=== PATIENT | female | born 1960 | race Caucasian/White ===

== ENCOUNTER 2017-08-04 20:44 | Emergency (ER) | payer BC, SELFPAY ==
[2017-08-04 20:46] VITALS: BP 114/70; PULSE 85; RESP 16; TEMP 37.6; O2SAT 98; BMI 25.9
--- NOTE | 2017-08-04 22:02 | US_ITS ---
STUDY: ABDOMINAL ULTRASOUND - RIGHT UPPER QUADRANT REASON FOR VISIT: Female, 57 years old. Body aches, nausea and fever. TECHNIQUE: Ultrasound evaluation of the right upper quadrant was performed with real-time and static parish-scale imaging. TECHNICAL QUALITY: Adequate. COMPARISON: None. FINDINGS: Liver: The liver measures 15 cm. There is normal echogenicity of the liver. The bile ducts are within normal limits. There is hepatic color flow. The direction of portal flow is hepatopetal. There is no demonstrated mass lesion. Gallbladder: Normal distended gallbladder. The gallbladder wall measures 3 mm. There is a negative sonographic Ortiz's sign. There is no pericholecystic fluid. There is a solitary echogenic gallstone within the gallbladder measuring about 8 mm. Common Bile Duct (C.B.D.): The common bile duct measures 3 mm. Pancreas: The pancreas as visualized on this examination appears unremarkable. There is normal echogenicity of the pancreas. There is no demonstrated pancreatic mass or cyst. Right Kidney: Normal size of the right kidney. The right kidney measures 11.8 x 4 x 5.1 cm. Normal renal cortex. The right cortex measures 1.5 cm. There is no demonstrated renal mass or cyst. There is no right hydronephrosis. US/Gallbladder IMPRESSION: Small gallstone. Electronically Signed: Robby De Luna MD at 23:15 EDT Tel , Service support ,
[2017-08-04] MEDS: Ondansetron 4 MG/2 ML Vial IV (22:48)
[2017-08-04] MEDS: 0.9% Normal Saline 1,000 ML 1000 ML IV (22:48)
[2017-08-04 23:00] LABS: Bacteria 0 SEEN /hpf (None Seen); Mucous, Urine 0 SEEN /hpf (<or=2+)
[2017-08-04 23:02] LABS: Color, Urine Yellow (Yellow); Glucose, Dipstick Normal (Normal); Ketone-Dipstick 15 mg/dl (Negative); Leukocyte Esterase-Dipstick 100 /ul (Negative); Nitrite-Dipstick Negative (Negative); Occult Blood-Urine 25 /ul (Negative); Protein-Dipstick 15 mg/dl (Negative); Urine Clarity Sl. Cloudy (Clear); Urine Urobilinogen 1 mg/dl (Normal)
[2017-08-04 23:05] LABS: Absolute Lymphocyte Count 0.99 X10^3/ul (0.83-4.51); Absolute Neutrophil Count 2.3 X10^3/uL (2.0-7.7); Basophil# 0.01 X10^3/uL; Basophil% 0.3 % (0-1); Eosinophil# 0.03 X10^3/uL; Eosinophils% 0.8 % (0-5); Hematocrit 40.2 % (37-47); Hemoglobin 13.6 g/dl (12.0-15.0); Lymphocyte # 0.99 X10^3/ul (4.0); Lymphocyte % 27.7 % (19-41); Mean Corp Hgb Conc 33.8 g/gl (32-36); Mean Corpuscular Hgb 28.6 pg (27.0-32.0); Mean Corpuscular Volume 84.6 fL (81-99); Mean Platelet Vol. 13.2 fl (6.2-12.0); Monocyte# 0.29 X10^3/uL; Monocyte% 8.1 % (0-10); Neutrophil # 2.26 X10^3/uL (2.7-7.7); Neutrophil % 63.1 % (47-70); Platelet Count 70 K/mm3 (150-450); RBC Distribution Width CV 12.5 % (11.6-14.6); RBC Distribution Width SD 38.8 fl (35.1-43.9); Red Blood Count 4.75 M/mm3 (4.2-5.4); White Blood Count 3.6 K/mm3 (4.4-11.0)
[2017-08-04 23:06] LABS: POSITIVE COUNT NO; POSITIVE DIFFERENTIAL NO; POSITIVE MORPHOLOGY NO
[2017-08-04 23:12] LABS: Urine Bilirubin Dipstick 1 mg/dL (Negative)
[2017-08-04 23:15] LABS: Red Blood Cells-Urine 0-5 SEEN /hpf (0-5); Squamous Epithelial Cells - UA 0-5 SEEN /hpf (5-10); White Blood Cells 10-25 SEEN /hpf (0-5)
[2017-08-04 23:18] LABS: AST(SGOT) 14 U/L (15-37); Alanine Aminotransfer ALT/SGPT 19 U/L (13-56); Albumin, Serum 3.6 g/dL (3.2-5.0); Alkaline Phosphatase 109 U/L (45-117); Anion Gap 8 (5-15); BUN 12 mg/dL (7-18); BUN/Creat Ratio 16.4 RATIO (10-20); Bilirubin, Direct 0.27 mg/dL (0.00-0.30); Calcium,Total 8.6 mg/dL (8.5-10.1); Chloride 104 mmol/L (98-107); Creatinine, Serum 0.73 mg/dL (0.55-1.02); EST Glomerular Filtration Rate 87 mL/min (>60); Est Glom Filt Rate - Afr Amer 106 mL/min (>60); Estimated Creatinine Clearance 70.34 ml/min; Globulin 3.4 g/dL (2.2-4.2); Glucose 94 mg/dL (74-106); Lipase 102 U/L (73-393); Potassium 3.4 mmol/L (3.5-5.1); Sodium Level 140 mmol/L (136-145)
--- NOTE | 2017-08-04 23:42 | ED.VISSUMM ---
- ER Visit Summary Date of Service: 08/04/17 Chief Complaint: Fever, abdominal pain, arthralgias History of Present Illness: The patient is a [address] Zapata. She reports that today she has had a temperature to 100.7?. She has an aching pain in her neck, back, knees, and elbows. She reports that is 3 out of 10 at rest and 6 out of 10 with movement or pushing on it. Patient also reports that she had upper abdominal pain earlier today. This is resolved. She has had nausea without vomiting. She has had 2 episodes of diarrhea. No blood in her stools or black tarry stools. She complains of a headache that comes and goes and generalized weakness. Physical Examination: Vitals: Stable. Afebrile. General: Well-nourished and well-developed. Head: Normocephalic atraumatic. Neck: Supple, no lymphadenopathy. No JVD. Nontender. Cardiovascular: Regular rate and rhythm. No murmurs. Respiratory: No respiratory distress. Clear to auscultation bilaterally. Abdominal: Soft, mild epigastric and moderate right upper quadrant tenderness to palpation, nondistended, normal bowel sounds. No guarding, rebound, or peritoneal signs. Back: Nontender. Extremities: Nontender, no edema. Skin: Normal color, no rash. Neurologic: Alert and oriented ?3. Cranial nerves II through XII are intact. Normal strength and sensation. Psych: Normal affect. Test Results: CBC is marked for a white count of 3.6 and platelets of 70. Her platelets have been 117-128 since 2014. Chem-7 is more for potassium 3.4. LFTs marked for UA has 10-25 white blood cells, but no bacteria. Right upper quadrant ultrasound shows a normal distended gallbladder with a 3 mm wall. No pericholecystic fluid. There is an 8 mm gallstone. The common bile duct is 3 mm. Ortiz sign is negative. Emergency Department Course and Treatment: Patient's urine was sent for culture and she was given a dose of Cipro p.o. Had a prolonged discussion with her that this may not be the cause of her arthralgias and weakness. She raises concern of the possibility of a tick bite to the medial left thigh. On exam there is an approximately 2 cm erythematous area with a scab in the middle. There is no induration or fluctuance to suggest abscess. She does not know that she was bit by a tick however. Treatment Plan: Patient will be discharged on 3 days of Cipro. 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 Instructed to follow-up with her primary care physician in 3-5 days if not improving. I also discussed her thrombocytopenia and leukopenia. She reports that she has had this in the past and is seeing Dr. Dias for it. States that her platelets have been as low as 40. I suggested that she follow-up with Dr. Schafer again for further evaluation of this. Return to the emergency department for any worsening symptoms. Disposition: To home in improved and stable condition. Impression: 1. Arthralgias. 2. UTI. This note was generated with [employer] dictation software. It may contain incorrect words, spelling, and punctuation that were not noted in review of the chart prior to signing ED Disposition - Plan for ED Patient: Disposition: Home or Assisted Living Chief Complaint: General Illness Instructions: Thrombocytopenia, ED UTI Cystitis Female Prescriptions: Ondansetron [Zofran Odt] 4 mg PO Q8H PRN PRN #10 tab PRN Reason: Nausea Ciprofloxacin [Cipro] 500 mg PO BID #6 tab Doxycycline Hyclate 100 mg PO BID #20 tab Referrals: Ray Sears DO [STAFF PHYSICIAN] - As soon as possible So Zapata MD [Primary Care Provider] - 3-5 Days if not improving
[2017-08-05] MEDS: Ondansetron ODT 4 MG Tablet PO (00:05)
[2017-08-05] MEDS: Ciprofloxacin 500 MG Tablet PO (00:16)
[2017-08-05 00:19] VITALS: BP 119/74; PULSE 85; RESP 16; O2SAT 96
[2017-08-05 00:20] VITALS: BP 119/74; PULSE 89; RESP 16; O2SAT 98
== END 2017-08-05 00:24 | disposition home or self-care (01) ==
LOC: ED 22:10
PROVIDERS: Emergency Provider Emergency Medicine; Family Provider Internal Medicine; PCP Internal Medicine
DX: M25.562 Pain in left knee (principal); M25.561 Pain in right knee; M25.522 Pain in left elbow; M25.521 Pain in right elbow; M54.2 Cervicalgia; M54.9 Dorsalgia, unspecified; N39.0 Urinary tract infection, site not specified; R51 Headache; K82.8 Other specified diseases of gallbladder; R19.7 Diarrhea, unspecified; R11.0 Nausea; E03.9 Hypothyroidism, unspecified; F32.9 Major depressive disorder, single episode, unspecified; Z79.899 Other long term (current) drug therapy; Z87.442 Personal history of urinary calculi
CPT/HCPCS: 76705; 80048; 80076; 81001; 83690; 85025; 87086; 87088; 96361; 96374; 99284; J7030; J2405

== ENCOUNTER 2017-08-10 02:53 | Emergency (ER) | payer BC, SELFPAY ==
[2017-08-10 02:54] VITALS: BP 119/70; PULSE 71; RESP 16; TEMP 36.8; O2SAT 97; BMI 26.4
--- NOTE | 2017-08-10 03:28 | ED.VISSUMM ---
- ER Visit Summary Date of Service: 08/10/17 Chief Complaint: Rash and itching History of Present Illness: The patient is a 57 F who has been working in her yard. Started having a rash on Thursday. Was recently seen in the ER and had one area the rash was in her left thigh at that time was concern for possible tick bite and even potentially Lyme disease. She was started on doxycycline and also started on Cipro for possible UTI. The rash is now all over both upper and lower extremities. Has significant itching and now has vesicles and crusting over consistent with poison jose alberto. This rash occurred prior to any antibiotics being given. Physical Examination: Well-appearing middle-age female. Vital signs are stable afebrile. No acute distress. H EENT exam unremarkable as of her mild rash left side of her face. Neck nontender. Lungs clear to auscultation bilaterally. Heart regular rate and rhythm no murmur. Abdomen soft nontender. Normal bowel sounds no peritoneal signs. She is moving all 4 extremities. Neurovascular intact. She has a rash with vesicles and crusting on her right palmar wrist. Left forearm. Left medial l thigh. Also the right thigh and right lower leg. There is no secondary cellulitis. The rash is consistent with a contact dermatitis and may be secondary to poison jose alberto. Back exam is unremarkable. Neurologic exam is normal. Test Results: None. Emergency Department Course and Treatment: Prednisone 80 mg in the ER. Treatment Plan: Prednisone 40 g a day for 1 week. Stop doxycycline. Follow-up with your doctor as needed. Disposition: Discharge Impression: Acute contact dermatitis secondary to poison jose alberto This note was generated with [employer] dictation software. It may contain incorrect words, spelling, and punctuation that were not noted in review of the chart prior to signing ED Disposition - Plan for ED Patient: Chief Complaint: Itching Referrals: So Zapata MD [Primary Care Provider] -
--- NOTE | 2017-08-10 03:30 | ED.DEP ---
ED Disposition - Plan for ED Patient: Disposition: Home or Assisted Living Chief Complaint: Itching Instructions: ED Dermatitis Poison Shivani Prescriptions: Prednisone [Deltasone] 40 mg PO DAILY 10 Days tab Referrals: So Zapata MD [Primary Care Provider] - As Needed Additional Instructions: Stop the doxycycline. Your rash is consistent with allergic reaction to poison shivani. Calamine or Caladryl lotion to the rash. Prednisone 40 mg a day until the rash is gone. Benadryl as needed for itching. Return if feeling worse.
[2017-08-10] MEDS: predniSONE 20 MG Tablet 80 MG PO (03:41)
[2017-08-10 04:04] VITALS: RESP 16
== END 2017-08-10 04:05 | disposition home or self-care (01) ==
LOC: ED 03:37
PROVIDERS: Emergency Provider Emergency Medicine; Family Provider Internal Medicine; PCP Internal Medicine
DX: L23.7 Allergic contact dermatitis due to plants, except food (principal); Z79.899 Other long term (current) drug therapy; Z87.442 Personal history of urinary calculi
CPT/HCPCS: 99281

== ENCOUNTER → 2018-01-30 11:21 | Outpatient (CLI) | payer BC, SELFPAY ==
[2018-01-22 15:01] VITALS: BMI 26.6
== END ==
PROVIDERS: Family Provider Internal Medicine; PCP Internal Medicine; Referring Provider Surgery; Visit Provider Surgery
DX: Z00.00 Encounter for general adult medical examination without abnormal findings (principal)
CPT/HCPCS: 36415; 80048; 80076; 85027; 85610

== ENCOUNTER 2018-02-08 07:59 | Day surgery (SDC) | payer BC, SELFPAY ==
[2018-01-18 14:18] VITALS: BMI 26.6
[2018-01-22 15:01] VITALS: BMI 26.6
[2018-01-30 12:27] LABS: Hemoglobin 13.3 g/dl (12.0-15.0); Mean Corp Hgb Conc 33.3 g/gl (32-36); Mean Corpuscular Hgb 28.5 pg (27.0-32.0); Mean Corpuscular Volume 85.7 fL (81-99); Mean Platelet Vol. 12.1 fl (6.2-12.0); Platelet Count 135 K/mm3 (150-450); RBC Distribution Width CV 12.7 % (11.6-14.6); RBC Distribution Width SD 39.8 fl (35.1-43.9); Red Blood Count 4.67 M/mm3 (4.2-5.4); White Blood Count 4.4 K/mm3 (4.4-11.0)
[2018-01-30 12:28] LABS: Scan Indicated on CBC? Y/N NO
[2018-01-30 12:37] LABS: Partial Thromboplast Time 29.6 Seconds (24.1-36.2)
[2018-01-30 12:45] LABS: Prothrombin Time (Protime)PT. 13.1 SECONDS (11.7-14.9)
[2018-01-30 13:25] LABS: AST(SGOT) 11 U/L (15-37); Alanine Aminotransfer ALT/SGPT 16 U/L (13-56); Albumin, Serum 3.7 g/dL (3.2-5.0); Alkaline Phosphatase 108 U/L (45-117); Anion Gap 8 (5-15); BUN 20 mg/dL (7-18); BUN/Creat Ratio 30.3 RATIO (10-20); Bilirubin, Direct 0.25 mg/dL (0.00-0.30); Calcium,Total 8.6 mg/dL (8.5-10.1); Chloride 106 mmol/L (98-107); Creatinine, Serum 0.66 mg/dL (0.55-1.02); EST Glomerular Filtration Rate 98 mL/min (>60); Est Glom Filt Rate - Afr Amer 118 mL/min (>60); Globulin 3.3 g/dL (2.2-4.2); Glucose 101 mg/dL (74-106); Potassium 3.9 mmol/L (3.5-5.1); Sodium Level 141 mmol/L (136-145); Thyroid Stim Hormone (TSH) < 0.01 uIU/mL (0.358-3.74)
[2018-02-08] VITALS (8 sets, daily range): BP systolic 93–141; BP diastolic 54–76; PULSE 48–75; RESP 14–16; TEMP 36.2–37.3; O2SAT 92–99; BMI 27.6
--- NOTE | 2018-02-08 08:48 | PCM.DC.GS ---
Discharge Diet: Light diet - advance as tolerated - if you have questions about your diet instructions, please talk to you doctor. Discharge Activity: May Not Drive - for 5 days or while taking narcotic pain medicine. May shower in (days): 1 Lifting Restrictions: 10 pounds Call your doctor if your incision/area has: Continuous Slow Oozing, Sudden Increased Bleeding, Increased Pain/ Swelling, Increased Redness, Foul Smelling Discharge Call your doctor if you observe: Fever of 101 or Higher Suture Line Care: Avoid Pulling/Pushing, Avoid Pinching/Bending Additional Dressing/Incision Instructions:: Change or remove dressing in 4 days. Leave steri-strips in place for 1 week. Allergies/Adverse Reactions: Allergies METHAMESAZONE Adverse Reaction (Uncoded 01/29/18 14:38) Itching Medications to take at Discharge Atorvastatin Calcium [Lipitor] 5 mg PO QHS 07/29/16 Citalopram [Celexa] 10 mg PO DAILY 07/29/16 Levothyroxine [Synthroid] 112 mcg PO DAILY 07/29/16 Hydrocodone Bitart/Apap 5-325 [[place] 5MG-325MG] 1 tablet PO Q6H PRN PRN 3 Days #8 tablet 02/08/18 The following prescriptions were given: Hydrocodone Bitart/Apap 5-325 [[place] 5MG-325MG] 1 tablet PO Q6H PRN PRN 3 Days #8 tablet PRN Reason: Pain Orders to be completed after discharge: 12 Lead EKG [[facility]] Time Frame: 01/30/18, Location: None Selected Primary Care Physician: Care Physician,No Primary [Primary Care Provider] - Test Results: Test results from this visit will be discussed in further detail at your follow-up appointment, if applicable. Please Follow Up With: Nathan Beverly MD - [phone] When: Call to make an appointment to be seen in about 10 days.
[2018-02-08] MEDS: Cefazolin 2 GM in 0.9% Normal Saline 100 ML IV (09:01)
--- NOTE | 2018-02-08 09:20 | RAD_ITS ---
STUDY: INTRAOPERATIVE CHOLANGIOGRAM. REASON FOR EXAM: Female, 57 years old. Laparoscopic cholecystectomy. FLUOROSCOPY TIME (if supplied): (0:14) minutes/seconds TECHNIQUE: An intraoperative cholangiogram was performed by the surgeon. Cine loop was obtained. COMPARISON: None. FINDINGS: The intrahepatic and extrahepatic biliary ducts are unremarkable. There is no evidence of obstruction. No intraluminal filling defect is seen. RAD/Cholangiogram/ O R,Initial IMPRESSION: Unremarkable intraoperative cholangiogram. Electronically Signed: Marky Hicks MD at 12:56 EST Tel [phone], Service support ,
--- NOTE | 2018-02-08 09:45 | GALL_PTH ---
PATIENT: DILEEP MARAVILLA LOC: [facility] [place] U#:[id number] AGE/SX: 57/F ROOM: RE02/08/[address]: Dr. Nathan Beverly MD : 1960 BED: DIS: 02/08/2018 SPEC #: [id number] RECD: 02/09/18 14:36 STATUS: LAURITA REGonzales #: [id number] LEXIE: 02/08/18 09:[address]: Nathan Beverly DEPT: SURGICAL PATHOLOGY RECD BY: Matias Tyson ENTERED: 02/10/18 09:15 SP TYPE: FLORIAN KINCAID DR: No Primary Care Phys Tissues: A - HERNIA B - Gallbladder, NOS Procedures: Surgery Specimen Level II Surgery Specimen Level III HEADER OPERATION: Laparoscopic cholecystectomy with intraoperative cholangiogram; supraumbilical hernia repair with mesh PRE-OP DIAGNOSIS: Calculus of gallbladder without obstruction, cholelithiasis; ventral hernia without obstruction or gangrene TISSUE SUBMITTED: A - Hernia sac, B - Gallbladder MICROSCOPIC DIAGNOSIS A. Hernia sac, herniorrhaphy: Fragments of fibrofatty tissue with minimal chronic inflammation consistent with hernia sac. B. Gallbladder, cholecystectomy: Chronic cholecystitis and cholelithiasis. AM:cortes 02/11/18 MICROSCOPIC DESCRIPTION Slides are reviewed. GROSS DESCRIPTION A - Received in fixative is one container labeled with the patient's name and designated hernia sac. The specimen consists of two fragments of yellow adipose tissue that in aggregate measure 3.5 x 3 x 1.5 cm. Sections do not reveal any mass lesion. Order Processing Clerk sections are submitted in one cassette. B - Received is one container labeled with the patient's name and designated gallbladder. The specimen consists of a gallbladder measuring 9.5 cm in length and up to 3 cm in diameter. The external surface is pink-ordonez, smooth and glistening for the most part. Focally it is granular, hemorrhagic and contains cautery artifact. The gallbladder contains green-yellow mucoid bile and one irregular brown-black stone measuring 0.6 cm in greatest dimension. The mucosa is bile-stained and without any mass lesions. The gallbladder wall measures up to 0.1 cm in thickness. Order Processing Clerk sections from the gallbladder and the cystic duct are submitted in one cassette. / SJ:cortes 02/10/18 TC:3 CPT: 12362, 77574
[2018-02-08] MEDS: Bupivacaine 0.5% PF 10 ML VIAL (10:26)
--- NOTE | 2018-02-08 10:32 | OP.PCM_ITS ---
Problem List (1) Ventral hernia Status: Acute Qualifiers: Obstruction and gangrene presence: without obstruction or gangrene (2) Chronic cholecystitis with calculus Status: Chronic Report of Operation Date of Procedure: 02/08/18 Pre-Operative Diagnosis: Symptomatic supraumbilical ventral hernia. Chronic cholecystitis cholelithiasis with biliary colic Post-Operative Diagnosis: Same Surgery/Procedure Performed:: Laparoscopic cholecystectomy with cholangiography. Supraumbilical ventral herniorrhaphy with onlay ultra Pro Monocryl Prolene co mposite mesh Description of Surgical Findings:: Timeout and informed consent was obtained. 57-year-old female was taken the operating placement table underwent general endotracheal intubation anesthesia. Ancef 2 g given intravenous preoperatively. The abdomen sterilely prepped draped. Transverse incision was made supraumbilically sharp and blunt dissection was used to identify the hernia of the midline linea alba. There was preperitoneal contents within. These were dissected free and the sac and contents submitted. A 12 mm trocar was inserted. The abdomen was insufflated with CO2 to a pressure of 10 mm Usher. Final trochars were placed in the epigastric mid abdomen right upper quadrant. The abdomen was inspected no evidence of intraocular injuries. There was a rather fatty omentum. The gallbladder was distracted blunt dissection was instituted at the infundibulum until clearly the cystic duct and cystic artery were identified. The cystic artery was clipped twice proximally and once distally prior to transecting it. Clip was placed on the cystic duct incision was made in cystic duct and through a 14-gauge Angiocath cholangiogram catheter was inserted. Fluoroscopically controlled clench grams were obtained demonstrating normal ductal anatomy and free flow into the small bowel. Cholangiogram catheter was removed and 2 additional hemoclips were placed on the cystic duct stump prior to transecting it. This was inspected there was absolutely no spillage of stones or bile. Clips appeared to be nicely intact. The gallbladder was dissected free from the liver bed using electrocautery. There was no spillage. Complete hemostasis was intact. The gallbladder was placed in retrieval bag exited the umbilicus and the remaining trochars were removed under visualization the abdomen was allowed to deflate of the CO2. The ventral hernia was closed with multiple interrupted 0 Nurolon simple sutures. Then UltraPulse mesh [employer] product lot number [id number] with a reference number of UMS3 and an expiry date of 06/08/2020 was utilized. A small onlay patch was fashioned to fit to the defect area. It was secured in place with multiple interrupted 3-0 Ethibond sutures. Good positioning and securement was achieved. Wounds were closed in layers with interrupted running septic or 4-0 Monocryl. Steri-Strips Telfa and OpSite dressings tied. The adrianna-incisional areas had been anesthetized with 0.5% Marcaine skin sites have been pre-anesthetized. Throughout the procedure a total of 30 cc was used. Specimen includes the hernia sac and contents. In the gallbladder. Drains none. Blood loss minimal. The patient was taken to the recovery room in satisfactory condition without apparent complication. Type of Anesthesia:: General Anesthesiologist: Linda Martniez
== END 2018-02-08 15:02 | disposition home or self-care (01) ==
LOC: SDC 08:00 → AC 08:01
PROVIDERS: Anesthesiology; Referring Provider Surgery; Visit Provider Surgery
PROC: (CPT 47610; 2018-02-08 09:30)
DX: K43.9 Ventral hernia without obstruction or gangrene (principal); K80.10 Calculus of gallbladder with chronic cholecystitis without obstruction; D69.3 Immune thrombocytopenic purpura; E78.5 Hyperlipidemia, unspecified; E03.9 Hypothyroidism, unspecified; F32.9 Major depressive disorder, single episode, unspecified; F41.9 Anxiety disorder, unspecified; Z79.899 Other long term (current) drug therapy; Z78.0 Asymptomatic menopausal state; Z87.442 Personal history of urinary calculi
CPT/HCPCS: 47563; 49560; 49568; 36415; 74300; 76000; 80048; 80076; 84443; 85027; 85610; 85730; 88302; 88304; J7120; C1781; J2405

== ENCOUNTER → 2019-10-12 | Outpatient (CLI) | payer BC, SELFPAY ==
[2018-02-08 08:36] VITALS: BMI 27.6
[2019-10-12 11:19] LABS: Absolute Lymphocyte Count 1.48 X10^3/uL (0.83-4.51); Absolute Neutrophil Count 2.6 X10^3/uL (2.0-7.7); Basophil# 0.03 X10^3/uL; Basophil% 0.7 % (0-1); Eosinophil# 0.13 X10^3/uL; Eosinophils% 2.9 % (0-5); Hemoglobin 13.7 g/dL (12.0-15.0); Lymphocyte # 1.48 X10^3/ul (4.0); Lymphocyte % 32.7 % (19-41); Mean Corp Hgb Conc 32.6 g/dL (32-36); Mean Corpuscular Hgb 29.3 pg (27.0-32.0); Mean Corpuscular Volume 89.9 fL (81-99); Mean Platelet Vol. 12.9 fl (6.2-12.0); Monocyte# 0.29 X10^3/uL; Monocyte% 6.4 % (0-10); NRBC Flagged by Analyzer 0 % (0-5); Neutrophil # 2.58 X10^3/uL (2.7-7.7); Neutrophil % 57.1 % (47-70); Platelet Count 116 K/mm3 (150-450); RBC Distribution Width CV 13.8 % (11.6-14.6); RBC Distribution Width SD 44.9 fl (35.1-43.9); Red Blood Count 4.67 M/mm3 (4.2-5.4); White Blood Count 4.5 K/mm3 (4.4-11.0)
[2019-10-12 11:47] LABS: ALB/GLOB Ratio 1.2 RATIO (0.9-2.4); AST(SGOT) 25 U/L (15-37); Alanine Aminotransfer ALT/SGPT 24 U/L (13-56); Albumin, Serum 4.1 g/dL (3.2-5.0); Alkaline Phosphatase 77 U/L (45-117); Anion Gap 3 (5-15); BUN 12 mg/dL (7-18); BUN/Creat Ratio 11.9 RATIO (10-20); Chloride 105 mmol/L (98-107); Cholesterol 286 mg/dL (200); Creatinine, Serum 1.01 mg/dL (0.55-1.02); EST Glomerular Filtration Rate 60 mL/min (>60); Est Glom Filt Rate - Afr Amer 72 mL/min (>60); Globulin 3.4 g/dL (2.2-4.2); Glucose 93 mg/dL (74-106); High Density Lipoprotein 69 mg/dL; Potassium 3.9 mmol/L (3.5-5.1); Protein, Total 7.5 g/dL (6.4-8.2); Sodium Level 141 mmol/L (136-145); T4 Free Direct 0.47 ng/dL (0.76-1.46); Triglycerides 183 mg/dL; Very Low Density Lipoprotein 37 mg/dL (5-40)
== END | disposition home or self-care (01) ==
PROVIDERS: Referring Provider Clinical Nurse Specialist; Visit Provider Clinical Nurse Specialist
DX: E55.9 Vitamin D deficiency, unspecified (principal); E89.0 Postprocedural hypothyroidism; E78.2 Mixed hyperlipidemia; D69.3 Immune thrombocytopenic purpura
CPT/HCPCS: 80053; 80061; 82306; 84439; 84443; 85025

== ENCOUNTER → 2020-01-13 | Outpatient (CLI) | payer BC, SELFPAY ==
[2018-02-08 08:36] VITALS: BMI 27.6
[2020-01-13 11:21] LABS: Absolute Lymphocyte Count 1.31 X10^3/uL (0.83-4.51); Absolute Neutrophil Count 2.2 X10^3/uL (2.0-7.7); Basophil# 0.03 X10^3/uL; Basophil% 0.8 % (0-1); Eosinophil# 0.06 X10^3/uL; Eosinophils% 1.5 % (0-5); Hematocrit 41.3 % (37-47); Hemoglobin 13.6 g/dL (12.0-15.0); Lymphocyte # 1.31 X10^3/ul (4.0); Lymphocyte % 33.3 % (19-41); Mean Corp Hgb Conc 32.9 g/dL (32-36); Mean Platelet Vol. 12.2 fl (6.2-12.0); Monocyte# 0.37 X10^3/uL; Monocyte% 9.4 % (0-10); NRBC Flagged by Analyzer 0 % (0-5); Neutrophil # 2.15 X10^3/uL (2.7-7.7); Neutrophil % 54.7 % (47-70); Platelet Count 135 K/mm3 (150-450); RBC Distribution Width CV 11.9 % (11.6-14.6); RBC Distribution Width SD 39.4 fl (35.1-43.9); Red Blood Count 4.54 M/mm3 (4.2-5.4); White Blood Count 3.9 K/mm3 (4.4-11.0)
[2020-01-13 11:39] LABS: ALB/GLOB Ratio 1.1 RATIO (0.9-2.4); AST(SGOT) 14 U/L (15-37); Alanine Aminotransfer ALT/SGPT 19 U/L (13-56); Albumin, Serum 3.9 g/dL (3.2-5.0); Alkaline Phosphatase 78 U/L (45-117); Anion Gap 3 (5-15); BUN 16 mg/dL (7-18); BUN/Creat Ratio 20.6 RATIO (10-20); Calcium,Total 8.8 mg/dL (8.5-10.1); Chloride 102 mmol/L (98-107); Cholesterol 159 mg/dL (200); Creatinine, Serum 0.78 mg/dL (0.55-1.02); EST Glomerular Filtration Rate 81 mL/min (>60); Est Glom Filt Rate - Afr Amer 97 mL/min (>60); Globulin 3.4 g/dL (2.2-4.2); Glucose 74 mg/dL (74-106); High Density Lipoprotein 60 mg/dL; Potassium 3.5 mmol/L (3.5-5.1); Protein, Total 7.3 g/dL (6.4-8.2); Sodium Level 138 mmol/L (136-145); T4 Free Direct 1.47 ng/dL (0.76-1.46); Thyroid Stim Hormone (TSH) 0.07 uIU/mL (0.358-3.74); Triglycerides 90 mg/dL; Very Low Density Lipoprotein 18 mg/dL (5-40)
[2020-01-13 12:00] LABS: HIV - WCH Non-Reactive (Nonreactive); Vitamin D,25 Hydroxy 22.3 ng/mL
== END | disposition home or self-care (01) ==
LOC: LABSPEC 09:59
PROVIDERS: Referring Provider Clinical Nurse Specialist; Visit Provider Clinical Nurse Specialist
DX: E89.0 Postprocedural hypothyroidism (principal); E78.2 Mixed hyperlipidemia; E55.9 Vitamin D deficiency, unspecified; D69.3 Immune thrombocytopenic purpura
CPT/HCPCS: 80053; 80061; 82306; 84439; 84443; 85025; 86703

== ENCOUNTER → 2020-05-14 16:00 | Outpatient (CLI) | payer OTHER, SELFPAY ==
[2020-05-14 15:36] VITALS: BMI 26.4
[2020-05-14 17:18] LABS: Vitamin D,25 Hydroxy 22.2 ng/mL
[2020-05-14 17:23] LABS: ALB/GLOB Ratio 1.1 RATIO (0.9-2.4); AST(SGOT) 10 U/L (15-37); Alanine Aminotransfer ALT/SGPT 19 U/L (13-56); Albumin, Serum 3.9 g/dL (3.2-5.0); Alkaline Phosphatase 79 U/L (45-117); Anion Gap 2 (5-15); BUN 16 mg/dL (7-18); BUN/Creat Ratio 20.5 RATIO (10-20); Calcium,Total 8.9 mg/dL (8.5-10.1); Chloride 104 mmol/L (98-107); Creatinine, Serum 0.78 mg/dL (0.55-1.02); EST Glomerular Filtration Rate 80 mL/min (>60); Est Glom Filt Rate - Afr Amer 97 mL/min (>60); Globulin 3.5 g/dL (2.2-4.2); Glucose 83 mg/dL (74-106); Potassium 3.7 mmol/L (3.5-5.1); Protein, Total 7.4 g/dL (6.4-8.2); Sodium Level 139 mmol/L (136-145); T4 Free Direct 1.15 ng/dL (0.76-1.46); Thyroid Stim Hormone (TSH) 2.73 uIU/mL (0.358-3.74)
== END ==
PROVIDERS: PCP Internal Medicine; Referring Provider Internal Medicine Endocrinology, Diabetes & Metabolism; Visit Provider Internal Medicine Endocrinology, Diabetes & Metabolism
DX: E89.0 Postprocedural hypothyroidism (principal); E55.9 Vitamin D deficiency, unspecified
CPT/HCPCS: 36415; 80053; 82306; 84439; 84443

== ENCOUNTER → 2020-05-30 08:24 | Outpatient (CLI) | payer OTHER, SELFPAY ==
[2020-05-14 15:36] VITALS: BMI 26.4
--- NOTE | 2020-05-30 08:28 | BD_ITS ---
STUDY: DUAL ENERGY X-RAY ABSORPTIOMETRY / DXA REASON FOR EXAM: Female, 59 years old. Screening -- OSTEOPENIA TECHNIQUE: Bone Mineral Density (BMD) measurements of lumbar spine and bilateral hips were obtained. COMPARISON: None. FINDINGS: Lumbar Spine (L1-L4): g/cm2 (1.046) / T-score (-1.1) / Z-score (0.1) Findings are suggestive of osteopenia with a low fracture risk. Left Femur Total: g/cm2 (0.826) / T-score (-1.4) / Z-score (-0.5) Left Femoral Neck: g/cm2 (0.845) / T-score (-1.4) / Z-score (-0.2) Right Femur Total: g/cm2 (0.851) / T-score (-1.2) / Z-score (-0.3) Right Femoral Neck: g/cm2 (0.838) / T-score (-1.4) / Z-score (-0.2) BD/Dexa Bone Density Study IMPRESSION: The patient is considered osteopenic as outlined below according to World Brannon Organization (WHO) criteria with a low fracture risk. Reference Information: The T-score is the number of standard deviations above or below the standard which is normal for young adults at their peak bone mineral density. The World Health Organization (WHO) interprets the T-scores as follows: Above -1 Normal bone density Between -1 and -2.5 Osteopenia Equal to / or below -2.5 Osteoporosis As a practical clinical guideline, osteopenia may be graded as follows: Mild -1 through -1.5 Moderate -1.6 through -2.0 Severe -2.1 through -2.4 The Z-score is the number of standard deviations above or below age-matched controls. A Z-score of less than -1.5 would be considered abnormal. References: 1. NIH Osteoporosis and Related Bone Diseases www osteo.org 2. International Society for Clinical Densitometry www iscd.org 3. National Osteoporosis Foundation www nof.org Electronically Signed: Marky Hicks MD at 13:16 EDT , Service support ,
== END ==
PROVIDERS: PCP Internal Medicine; Referring Provider Internal Medicine Endocrinology, Diabetes & Metabolism; Visit Provider Internal Medicine Endocrinology, Diabetes & Metabolism
DX: M85.80 Other specified disorders of bone density and structure, unspecified site (principal)
CPT/HCPCS: 77080

== ENCOUNTER 2021-05-20 11:49 | Outpatient (CLI) | payer BC, SELFPAY ==
[2021-05-20 12:25] LABS: Absolute Lymphocyte Count 1.34 X10^3/uL (0.83-4.51); Absolute Neutrophil Count 2.2 X10^3/uL (2.0-7.7); Basophil# 0.02 X10^3/uL; Basophil% 0.5 % (0-1); Eosinophil# 0.08 X10^3/uL; Hematocrit 40.1 % (37-47); Hemoglobin 13.4 g/dL (12.0-15.0); Lymphocyte # 1.34 X10^3/ul (0.83-4.51); Mean Corp Hgb Conc 33.4 g/dL (32-36); Mean Corpuscular Hgb 29.1 pg (27.0-32.0); Mean Corpuscular Volume 87.2 fL (81-99); Mean Platelet Vol. 12.3 fl (6.2-12.0); Monocyte# 0.31 X10^3/uL; Monocyte% 7.9 % (0-10); NRBC Flagged by Analyzer 0 % (0-5); Neutrophil # 2.17 X10^3/uL (2.7-7.7); Neutrophil % 55.1 % (47-70); Platelet Count 146 K/mm3 (150-450); RBC Distribution Width CV 12.5 % (11.6-14.6); RBC Distribution Width SD 39.8 fl (35.1-43.9); White Blood Count 3.9 K/mm3 (4.4-11.0)
[2021-05-20 12:38] LABS: Vitamin D,25 Hydroxy 30.3 ng/mL
[2021-05-20 13:04] LABS: ALB/GLOB Ratio 1.1 RATIO (0.9-2.4); AST(SGOT) 11 U/L (15-37); Alanine Aminotransfer ALT/SGPT 17 U/L (13-56); Albumin, Serum 3.7 g/dL (3.2-5.0); Alkaline Phosphatase 77 U/L (45-117); Anion Gap 4 (5-15); BUN 17 mg/dL (7-18); BUN/Creat Ratio 24.4 RATIO (10-20); Calcium,Total 8.8 mg/dL (8.5-10.1); Chloride 106 mmol/L (98-107); Cholesterol 187 mg/dL (200); EST Glomerular Filtration Rate 91 mL/min (>60); Est Glom Filt Rate - Afr Amer 110 mL/min (>60); Globulin 3.4 g/dL (2.2-4.2); Glucose 94 mg/dL (74-106); High Density Lipoprotein 57 mg/dL; Potassium 3.8 mmol/L (3.5-5.1); Protein, Total 7.1 g/dL (6.4-8.2); Sodium Level 140 mmol/L (136-145); T4 Free Direct 1.24 ng/dL (0.76-1.46); Thyroid Stim Hormone (TSH) 0.15 uIU/mL (0.358-3.74); Triglycerides 96 mg/dL; Very Low Density Lipoprotein 19 mg/dL (5-40)
== END 2021-05-20 23:59 | disposition home or self-care (01) ==
LOC: LABSPEC 11:53
PROVIDERS: PCP Internal Medicine; Visit Provider Nurse Practitioner Family
DX: E89.0 Postprocedural hypothyroidism (principal); E78.5 Hyperlipidemia, unspecified; E55.9 Vitamin D deficiency, unspecified
CPT/HCPCS: 80053; 80061; 82306; 84439; 84443; 85025

== ENCOUNTER → 2022-05-13 | Outpatient (CLI) | payer BC, SELFPAY ==
[2022-05-13 13:17] LABS: Absolute Lymphocyte Count 1.21 X10^3/uL (0.83-4.51); Absolute Neutrophil Count 2.5 X10^3/uL (2.0-7.7); Basophil# 0.03 X10^3/uL; Basophil% 0.7 % (0-1); Eosinophil# 0.09 X10^3/uL; Eosinophils% 2.2 % (0-5); Hematocrit 41.3 % (37-47); Hemoglobin 13.7 g/dL (12.0-15.0); Lymphocyte # 1.21 X10^3/ul (0.83-4.51); Lymphocyte % 29.2 % (19-41); Mean Corp Hgb Conc 33.2 g/dL (32-36); Mean Corpuscular Hgb 29.4 pg (27.0-32.0); Mean Corpuscular Volume 88.6 fL (81-99); Mean Platelet Vol. 11.7 fl (6.2-12.0); Monocyte# 0.29 X10^3/uL; NRBC Flagged by Analyzer 0 % (0-5); Neutrophil # 2.52 X10^3/uL (2.7-7.7); Neutrophil % 60.7 % (47-70); Platelet Count 167 K/mm3 (150-450); RBC Distribution Width CV 12.5 % (11.6-14.6); Red Blood Count 4.66 M/mm3 (4.2-5.4); White Blood Count 4.2 K/mm3 (4.4-11.0)
== END | disposition home or self-care (01) ==
LOC: LABSPEC 13:10
PROVIDERS: PCP Internal Medicine; Referring Provider Internal Medicine Endocrinology, Diabetes & Metabolism; Visit Provider Internal Medicine Endocrinology, Diabetes & Metabolism
DX: E89.0 Postprocedural hypothyroidism (principal); E55.9 Vitamin D deficiency, unspecified; E78.2 Mixed hyperlipidemia; M85.80 Other specified disorders of bone density and structure, unspecified site
CPT/HCPCS: 85025

== ENCOUNTER → 2022-05-19 | Outpatient (CLI) | payer BC, SELFPAY ==
[2022-05-19 14:18] LABS: ALB/GLOB Ratio 1.1 RATIO (0.9-2.4); AST(SGOT) 16 U/L (15-37); Alanine Aminotransfer ALT/SGPT 17 U/L (13-56); Albumin, Serum 3.6 g/dL (3.2-5.0); Alkaline Phosphatase 82 U/L (45-117); Anion Gap 4 (5-15); BUN 16 mg/dL (7-18); BUN/Creat Ratio 21.2 RATIO (10-20); Calcium,Total 8.9 mg/dL (8.5-10.1); Chloride 104 mmol/L (98-107); Cholesterol 181 mg/dL (200); Creatinine, Serum 0.75 mg/dL (0.55-1.02); EST Glomerular Filtration Rate 83 mL/min (>60); Est Glom Filt Rate - Afr Amer 100 mL/min (>60); Globulin 3.3 g/dL (2.2-4.2); Glucose 134 mg/dL (74-106); High Density Lipoprotein 58 mg/dL; Potassium 3.4 mmol/L (3.5-5.1); Protein, Total 6.9 g/dL (6.4-8.2); Sodium Level 137 mmol/L (136-145); T4 Free Direct 0.98 ng/dL (0.76-1.46); Thyroid Stim Hormone (TSH) 0.27 uIU/mL (0.358-3.74); Triglycerides 234 mg/dL; Very Low Density Lipoprotein 47 mg/dL (5-40)
== END | disposition home or self-care (01) ==
LOC: LAB 12:21
PROVIDERS: PCP Internal Medicine; Referring Provider Internal Medicine Endocrinology, Diabetes & Metabolism; Visit Provider Internal Medicine Endocrinology, Diabetes & Metabolism
DX: E89.0 Postprocedural hypothyroidism (principal); E55.9 Vitamin D deficiency, unspecified; E78.2 Mixed hyperlipidemia; M85.80 Other specified disorders of bone density and structure, unspecified site
CPT/HCPCS: 36415; 80053; 80061; 82306; 84439; 84443

== ENCOUNTER 2022-07-11 10:18 | Emergency (ER) | payer BC, SELFPAY ==
[2022-07-11 10:19] VITALS: BP 111/71; PULSE 73; RESP 16; TEMP 37.1; O2SAT 100; BMI 25.0
--- NOTE | 2022-07-11 10:28 | EX.ED.DYSGE1 ---
HPI History of Present Illness Chief Complaint: Abn Labs [facility] Medical History Acute appendicitis Cholelithiasis Chronic cholecystitis Depression Hemorrhoids Hyperlipidemia Hypothyroidism Osteopenia determined by x-ray Postablative hypothyroidism Ventral hernia Vitamin D deficiency Home Medications cholecalciferol (vitamin D3) 50 mcg (2,000 unit) capsule 50 mcg PO DAILY 05/14/20 [History Last Taken Unknown] atorvastatin 10 mg tablet 5 mg PO QHS CHOLESTEROL #45 tabs 05/19/22 [Rx Last Taken Unknown] levothyroxine 100 mcg tablet 100 mcg PO .Mon-Sat #90 tabs 05/19/22 [Rx Last Taken Unknown] citalopram 10 mg tablet 10 mg PO DAILY ANXIETY #30 tabs 06/17/22 [Rx Last Taken Unknown] Allergy/AdvReac Type Severity Reaction Status Date / Time poison jose alberto extract Allergy Severe Itching Verified 05/19/22 16:04 methimazole [From Tapazole] AdvReac Itching Verified 06/04/22 14:12 Family History Father Heart disease Mother Bleeding disorder Sister Kidney disease Surgical History History of appendectomy History of tubal ligation S/P laparoscopic cholecystectomy (~02/08/18) Social History Smoking Status: Never smoker alcohol intake: never what type of physical activity do you participate in: walking and other frequency: 3-4 times per week EXAM Physical Exam Const Vital Signs: 07/11/22 10:19 Temperature 98.7 F Temperature Source Temporal Pulse Rate 73 Respiratory Rate 16 Blood Pressure 111/71 Blood Pressure Mean 84 Pulse Ox 100 Oxygen Delivery Method Room Air MDM MDM MDM Narrative Medical decision making narrative: HISTORY OF PRESENT ILLNESS: 61-year-old female here with concern for dehydration and low potassium. States that 9 days of diarrhea. She notes associated nausea and vomiting earlier in her illness but no nausea vomiting today. S she he states she had no sick contacts. She states she may have eaten some bad spaghetti. She denies any recent travel, antibiotics. Denies any blood in her stool. States her stools are loose. She went to urgent care prior to arrival received a laboratory evaluation and they stated patient had potassium of 2.8. They instructed patient to come to the emergency department immediately. REVIEW OF SYSTEMS: Pertinent positives: diarrhea, nausea vomiting Pertinent negatives: Fever, abdominal pain PHYSICAL EXAM: Nursing triage notes reviewed, Vital signs reviewed Constitutional: please see mdm HENT: MMM Eyes: Pupils equal round and reactive to light, Extraocular muscles intact Neck: No stridor, no JVD, full neck ROM Lungs: Clear to auscultation, No wheezing or rales. No increased work of breathing, no conversational dyspnea, no accessory muscle use, no nasal flaring. No respiratory distress noted Heart: Regular rate and rhythm, No murmurs, No rubs and No gallops, 2+ distal pulses (radial, femoral, posterior tibial) in all extremities Abdomen: Soft, there is no tenderness, rigidity, rebound or guarding, no obvious peritoneal signs, no palpable pulsatile abdominal masses, no auscultated abdominal bruit : No CVAT Extremities: No edema Neuro: No focal neurological deficits, cranial nerves II through XII intact, 5/5 strength in all extremities. Intact sensation to light touch in all extremities, 2+ reflexes bilateral patella tendons. Normal gait. No ataxia. Skin: No rash or lesions noted MEDICAL DECISION MAKING: Chief Complaint: diarrhea, hypokalemia External records reviewed: No recent ED visits Factors affecting care: Hyperlipidemia, hypothyroidism Social determinants of health: No drug use History obtained from others: None Consults: ALL IMAGES HAVE BEEN PERSONALLY REVIEWED AND INTERPRETED BY MYSELF. CBC no leukocytosis,No significant anemia or thrombocytopenia BMP with moderate hypokalemia, no other significant [place] abnormalities, no acute kidney injury or anion gap LFTs show no evidence of hepatobiliary pathology. Lipase is wnl indicating no pancreatic inflammation. [facility] Narrative: Patient was hemodynamically stable, afebrile and nontoxic-appearing. Abdominal exam was benign with no peritoneal signs I considered the following differential diagnosis: Dehydration, electrolyte disturbance, invasive bacterial diarrhea I obtained labs including stool pathogens, C. difficile, EKG. Gave fluids. Labs were remarkable for moderate hypokalemia 2.7. We will give IV and oral potassium replacement. Stool studies are pending and/or not collected at this time. Refer the patient to her primary care physician, ED call back and/or online medical record for results. There is no indication of severe hypokalemia based on the patient's EKG and labs. She was rehydrated with normal saline and given potassium replacement. Patient was given strict return precaution follow-up instructions. Patient expressed understanding agree with the plan. Total critical care time today provided was at least 0 minutes. This excludes separately billable procedures. There was a high probability of clinically significant/life threatening deterioration in the patient's condition which required my urgent intervention. Shared decision making: I will have a discussion with the patient and or visitors regarding risk/benefits of further testing or admission. They will be made aware of of the risk/benefits inherent in this decision they will be given the opportunity to voice understanding. Lab Data Attestation: I reviewed the patient's lab results. Lab results narrative: EKG with normal sinus rhythm, normal axis, no STEMI Labs: Laboratory Results - last 24 hr 07/11/22 07/11/22 10:30 10:30 WBC 7.7 RBC 4.91 Hgb 14.2 Hct 42.3 MCV 86.2 MCH 28.9 MCHC 33.6 RDW Std Deviation 40.2 RDW Coeff of Ankur 13.0 Plt Count 218 MPV 11.3 Immature Gran % (Auto) 0.500 Neut % (Auto) 70.3 H Lymph % (Auto) 18.7 L [place] % (Auto) 8.4 Eos % (Auto) 1.4 Baso % (Auto) 0.7 Absolute Neuts (auto) 5.4 Absolute Lymphs (auto) 1.43 Nucleated RBC % 0 Sodium 142 Potassium 2.7 L* Chloride 105 Carbon Dioxide 32.0 Anion Gap 5 BUN 8 Creatinine 0.80 Estim Creat Clear Calc 63.77 Est GFR (MDRD) Af Amer 93 Est GFR (MDRD) Non-Af 77 BUN/Creatinine Ratio 10.0 Glucose 103 Calcium 8.4 L Total Bilirubin 1.20 H Direct Bilirubin 0.25 AST 19 ALT 29 Alkaline Phosphatase 95 Total Protein 7.1 Albumin 3.7 Globulin 3.4 Lipase 25 Discharge Plan Triage Chief Complaint: Abn Labs Other Complaint: Diarrhea ED Provider: Tian Soto Dx/Rx/DC Orders Clinical Impression: Diarrhea, Acute hypokalemia Instructions: ED Diarrhea, Unknown Cause Prescriptions: No Action cholecalciferol (vitamin D3) 50 mcg (2,000 unit) capsule 50 mcg PO DAILY levothyroxine 100 mcg tablet 100 mcg PO .Mon-Sat Qty: 90 3RF atorvastatin 10 mg tablet 5 mg PO QHS Qty: 45 3RF citalopram 10 mg tablet 10 mg PO DAILY Qty: 30 0RF Stand Alone Forms: ED Work / School Excuse Primary Care Provider: So Zapata Referrals: So Zapata MD [Primary Care Provider] - Activity Restrictions/Additional Instructions: Thank you for trusting us with your care today! Please take Tylenol (2 pills, 650 mg), ibuprofen (2 pills, 400 mg) every 6 hours as needed for pain and fever control. Please eat a potassium rich diet which includes foods such as spinach, dark green leafy vegetables, cantaloupe and bananas. Please refer to your online medical record for results of stool studies if provided. He may also call into the emergency department and/or follow-up your primary care physician for this information as well. Please return if you develop vomiting cannot tolerate medicine by mouth or if you develop severe abdominal pain, worsening fever or worsening diarrhea Please return to the emergency department if your symptoms change or worsen. Please follow with your primary care physician for further outpatient evaluation and management. Disposition Disposition: Home, Self Care
--- NOTE | 2022-07-11 10:29 | EKG12_ITS ---
Test Reason : Blood Pressure : / mmHG Vent. Rate : 068 BPM Atrial Rate : 068 BPM P-R Int : 126 ms QRS Dur : 092 ms QT Int : 410 ms P-R-T Axes : 022 006 014 degrees QTc Int : 435 ms Normal sinus rhythm Nonspecific ST abnormality Abnormal ECG Confirmed by YAIMA CAMPOS, SINAN ([id number]), editor news MARILYN OATES ([id number]) on 07/15/2022 8:43:54 AM Referred By: Confirmed By:SINAN ERWIN MD
[2022-07-11] MEDS: 0.9% Normal Saline 1,000 ML 1000 ML IV (10:37)
[2022-07-11 11:10] LABS: Absolute Lymphocyte Count 1.43 X10^3/uL (0.83-4.51); Absolute Neutrophil Count 5.4 X10^3/uL (2.0-7.7); Basophil# 0.05 X10^3/uL; Basophil% 0.7 % (0-1); Eosinophil# 0.11 X10^3/uL; Eosinophils% 1.4 % (0-5); Hematocrit 42.3 % (37-47); Hemoglobin 14.2 g/dL (12.0-15.0); Lymphocyte # 1.43 X10^3/ul (0.83-4.51); Lymphocyte % 18.7 % (19-41); Mean Corp Hgb Conc 33.6 g/dL (32-36); Mean Corpuscular Hgb 28.9 pg (27.0-32.0); Mean Corpuscular Volume 86.2 fL (81-99); Mean Platelet Vol. 11.3 fl (6.2-12.0); Monocyte# 0.64 X10^3/uL; Monocyte% 8.4 % (0-10); NRBC Flagged by Analyzer 0 % (0-5); Neutrophil # 5.38 X10^3/uL (2.7-7.7); Neutrophil % 70.3 % (47-70); Platelet Count 218 K/mm3 (150-450); RBC Distribution Width SD 40.2 fl (35.1-43.9); Red Blood Count 4.91 M/mm3 (4.2-5.4); White Blood Count 7.7 K/mm3 (4.4-11.0)
[2022-07-11 11:48] LABS: AST(SGOT) 19 U/L (15-37); Alanine Aminotransfer ALT/SGPT 29 U/L (13-56); Albumin, Serum 3.7 g/dL (3.2-5.0); Alkaline Phosphatase 95 U/L (45-117); Anion Gap 5 (5-15); BUN 8 mg/dL (7-18); Bilirubin, Direct 0.25 mg/dL (0.00-0.30); Calcium,Total 8.4 mg/dL (8.5-10.1); Chloride 105 mmol/L (98-107); EST Glomerular Filtration Rate 77 mL/min (>60); Est Glom Filt Rate - Afr Amer 93 mL/min (>60); Estimated Creatinine Clearance 63.77 ml/min; Globulin 3.4 g/dL (2.2-4.2); Glucose 103 mg/dL (74-106); Lipase 25 U/L (13-75); Potassium 2.7 mmol/L (3.5-5.1); Protein, Total 7.1 g/dL (6.4-8.2); Sodium Level 142 mmol/L (136-145)
[2022-07-11] MEDS: Potassium Chloride Oral Tablet 20 MEQ 60 MEQ PO (12:03)
== END 2022-07-11 12:19 | disposition home or self-care (01) ==
PROVIDERS: Emergency Provider Emergency Medicine; PCP Internal Medicine; Visit Provider Emergency Medicine
DX: E87.6 Hypokalemia (principal); E03.9 Hypothyroidism, unspecified; R19.7 Diarrhea, unspecified; E78.5 Hyperlipidemia, unspecified; Z79.899 Other long term (current) drug therapy
CPT/HCPCS: 80048; 80076; 83690; 85025; 93005; 99283; A4216

== ENCOUNTER 2022-07-13 04:02 | Emergency (ER) | payer BC, SELFPAY ==
[2022-07-13 04:03] VITALS: BP 117/63; PULSE 77; RESP 14; TEMP 36.9; O2SAT 97; BMI 27.1
--- NOTE | 2022-07-13 04:32 | RAD_ITS ---
EXAM: XR CHEST, 2 VIEWS CLINICAL INDICATION: chest pain TECHNIQUE: Frontal and lateral views of the chest. COMPARISON: No relevant prior studies available. FINDINGS: LUNGS AND PLEURAL SPACES: Incidental azygos lobe. No consolidations. No pneumothorax. No effusion. HEART: Unremarkable. Cardiac silhouette not enlarged. MEDIASTINUM: Central airways and mediastinal contour are unremarkable. BONES/JOINTS: Unremarkable. SOFT TISSUES: Unremarkable. RAD/Chest PA and Lateral IMPRESSION: No acute cardiopulmonary abnormality. Electronically Signed: Brandon Porras MD at 4:52 EDT ,
[2022-07-13 04:39] LABS: Absolute Lymphocyte Count 1.31 X10^3/uL (0.83-4.51); Absolute Neutrophil Count 6.1 X10^3/uL (2.0-7.7); Basophil# 0.04 X10^3/uL; Basophil% 0.5 % (0-1); Eosinophil# 0.12 X10^3/uL; Eosinophils% 1.5 % (0-5); Hematocrit 40.1 % (37-47); Lymphocyte # 1.31 X10^3/ul (0.83-4.51); Lymphocyte % 16.1 % (19-41); Mean Corp Hgb Conc 32.4 g/dL (32-36); Mean Corpuscular Hgb 28.4 pg (27.0-32.0); Mean Corpuscular Volume 87.7 fL (81-99); Mean Platelet Vol. 10.8 fl (6.2-12.0); Monocyte# 0.56 X10^3/uL; Monocyte% 6.9 % (0-10); NRBC Flagged by Analyzer 0 % (0-5); Neutrophil # 6.09 X10^3/uL (2.7-7.7); Neutrophil % 74.6 % (47-70); Platelet Count 155 K/mm3 (150-450); RBC Distribution Width CV 13.2 % (11.6-14.6); RBC Distribution Width SD 41.8 fl (35.1-43.9); Red Blood Count 4.57 M/mm3 (4.2-5.4); White Blood Count 8.2 K/mm3 (4.4-11.0)
[2022-07-13] MEDS: Aspirin 325 MG Tablet PO (04:40)
[2022-07-13] MEDS: Ondansetron 4 MG/2 ML Vial IV (04:41)
[2022-07-13] MEDS: 0.9% Normal Saline 1,000 ML 999 ML IV (04:41)
[2022-07-13 05:02] VITALS: BP 108/49; PULSE 81; RESP 20; O2SAT 93
[2022-07-13 05:03] LABS: AST(SGOT) 20 U/L (15-37); Alanine Aminotransfer ALT/SGPT 23 U/L (13-56); Albumin, Serum 3.2 g/dL (3.2-5.0); Alkaline Phosphatase 94 U/L (45-117); Anion Gap 4 (5-15); BUN 7 mg/dL (7-18); BUN/Creat Ratio 10.2 RATIO (10-20); Calcium,Total 8.1 mg/dL (8.5-10.1); Chloride 108 mmol/L (98-107); Creatinine, Serum 0.69 mg/dL (0.55-1.02); EST Glomerular Filtration Rate 92 mL/min (>60); Est Glom Filt Rate - Afr Amer 112 mL/min (>60); Estimated Creatinine Clearance 70.83 ml/min; Glucose 98 mg/dL (74-106); Lipase 31 U/L (13-75); Protein, Total 6.2 g/dL (6.4-8.2); Sodium Level 142 mmol/L (136-145); Thyroid Stim Hormone (TSH) 7.59 uIU/mL (0.358-3.74); Troponin-I HS 5 pg/mL (3.0-54.0)
--- NOTE | 2022-07-13 05:05 | EKG12_ITS ---
Test Reason : CP Blood Pressure : / mmHG Vent. Rate : 075 BPM Atrial Rate : 075 BPM P-R Int : 124 ms QRS Dur : 090 ms QT Int : 374 ms P-R-T Axes : 043 021 022 degrees QTc Int : 417 ms Normal sinus rhythm Nonspecific ST abnormality Abnormal ECG Confirmed by YAIMA CAMPOS, SINAN ([id number]), features editor MARILYN OATES ([id number]) on 07/14/2022 11:35:09 AM Referred By: ALTHEA Confirmed By:SINAN ERWIN MD
[2022-07-13 06:00] VITALS: BP 110/52; PULSE 83; RESP 18; O2SAT 94
[2022-07-13 06:42] LABS: Troponin-I HS 4 pg/mL (3.0-54.0)
--- NOTE | 2022-07-13 06:59 | EDS_ITS ---
HPI History of Present Illness Chief Complaint: Chest Pain Informant: patient and spouse/S.O. Narrative Narrative: Patient is a 61-year-old female with past medical history of hypothyroidism cholelithiasis hyperlipidemia and hypokalemia. She states that she noticed some vague midsternal chest discomfort earlier today. She states she feels like there is something in her chest/throat that she needs to burp but cannot. She states she is unsure if this is cardiac in nature and with this comes in for evaluation. PFSH PFS Medical History Acute appendicitis Cholelithiasis Chronic cholecystitis Depression Hemorrhoids Hyperlipidemia Hypothyroidism Osteopenia determined by x-ray Postablative hypothyroidism Ventral hernia Vitamin D deficiency Home Medications cholecalciferol (vitamin D3) 50 mcg (2,000 unit) capsule 50 mcg PO DAILY 05/14/20 [History Last Taken Unknown] atorvastatin 10 mg tablet 5 mg PO QHS CHOLESTEROL #45 tabs 05/19/22 [Rx Last Taken Unknown] levothyroxine 100 mcg tablet 100 mcg PO .Mon-Sat #90 tabs 05/19/22 [Rx Last Taken Unknown] citalopram 10 mg tablet 10 mg PO DAILY ANXIETY #30 tabs 06/17/22 [Rx Last Taken Unknown] Allergy/AdvReac Type Severity Reaction Status Date / Time poison jose alberto extract Allergy Severe Itching Verified 07/13/22 04:05 methimazole [From Tapazole] AdvReac Itching Verified 07/13/22 04:05 Family History Father Heart disease Mother Bleeding disorder Sister Kidney disease Surgical History History of appendectomy History of tubal ligation S/P laparoscopic cholecystectomy (~02/08/18) Social History Smoking Status: Never smoker alcohol intake: never what type of physical activity do you participate in: walking and other frequency: 3-4 times per week ROS ROS ED Constitutional Constitutional ED: Denies chills or fever(s) ENT ENT ED: Reports sore throat Cardiovascular Cardiovascular: Reports chest pain; Denies palpitations or racing heartbeat Respiratory/Chest Respiratory/Chest: Denies cough or dyspnea Gastrointestinal Gastrointestinal: Denies abdominal pain, diarrhea, nausea or vomiting Genitourinary Genitourinary ED: Denies dysuria Musculoskeletal Musculoskeletal: Denies myalgias Integumentary Denies rash Neurologic Neurologic: Reports weakness; Denies headache(s) Hematologic/Lymphatic Hematologic/Lymphatic: Denies easy bleeding or easy bruising EXAM Physical Exam Const Vital Signs: 07/13/22 04:03 07/13/22 04:07 07/13/22 05:02 Temperature 98.4 F Temperature Source Oral Pulse Rate 77 81 Respiratory Rate 14 20 H Respiratory Effort Normal Non-Labored Respiratory Pattern Normal Blood Pressure 117/63 108/49 L Blood Pressure Mean 81 68 Pulse Ox 97 93 Oxygen Delivery Method Room Air Room Air 07/13/22 06:00 Temperature Temperature Source Pulse Rate 83 Respiratory Rate 18 Respiratory Effort Respiratory Pattern Blood Pressure 110/52 L Blood Pressure Mean 71 Pulse Ox 94 Oxygen Delivery Method Room Air Positive well nourished and well developed General Appearance ED: well developed HEENT Reports moist mucous membranes HEENT Narrative: No tongue or lip swelling no oral lesions no airway edema or compromise Eyes PERRL and EOMs intact bilaterally General Eye ED: Negative for scleral icterus Neck supple Chest Wall palpation of chest normal Resp normal respiratory effort and clear to auscultation bilaterally Cardio regular rate and regular rhythm Rate: other Other Details: Radial pulses are plus 2 out of 4 bilaterally are equal and symmetric GI normal to inspection, nondistended, normoactive bowel sounds, non-tender, non- distended and no masses; Negative for hepatosplenomegaly GI Narrative: No voluntary guarding or rigidity no pulsatile mass or fluid wave Auscultation: normoactive bowel sounds Palpation: soft Back/Spine no CVA tenderness Extremity normal to inspection Extremity Narrative: No asymmetric edema no pitting edema negative Homans' sign bilaterally Neuro oriented x3, CN's II-XII intact bilaterally and no sensory deficits noted Sensorium / Orientation: alert Psych Psych Narrative: Patient has a flat affect Mood & Affect: depressed Skin no rashes or lesions noted General Skin Exam: Negative for jaundice MDM MDM MDM Narrative Medical decision making narrative: Patient presented to the ER with stable vitals and report of chest discomfort that is not classic cardiac in nature. Differential diagnosis includes acute coronary syndrome versus esophageal spasm versus GERD versus pancreatitis versus pneumonia or pneumothorax or pleural effusion. Secondary to this a basic work- up was obtained with chest x-ray. X-ray revealed no acute lung pathology and lab work showed a normal initial and delta troponin indicating this is not card iac in nature. Patient does have chronic hypokalemia and her value today is low but better than the previous day and therefore I feel she can continue to treat this on an outpatient basis especially as EKG shows no hypokalemia changes. Therefore at this time with negative work-up patient is otherwise safe for discharge and can follow-up on an outpatient basis History & Record Review Discussion w/independent historian: Patient and Significant other Lab Data Attestation: I reviewed the patient's lab results. Labs: Laboratory Results - last 24 hr 07/13/22 07/13/22 07/13/22 04:10 04:10 06:16 WBC 8.2 RBC 4.57 Hgb 13.0 Hct 40.1 MCV 87.7 MCH 28.4 MCHC 32.4 RDW Std Deviation 41.8 RDW Coeff of Ankur 13.2 Plt Count 155 MPV 10.8 Immature Gran % (Auto) 0.400 Neut % (Auto) 74.6 H Lymph % (Auto) 16.1 L [place] % (Auto) 6.9 Eos % (Auto) 1.5 Baso % (Auto) 0.5 Absolute Neuts (auto) 6.1 Absolute Lymphs (auto) 1.31 Nucleated RBC % 0 Sodium 142 Potassium 3.0 L Chloride 108 H Carbon Dioxide 30.0 Anion Gap 4 L BUN 7 Creatinine 0.69 Estim Creat Clear Calc 70.83 Est GFR (MDRD) Af Amer 112 Est GFR (MDRD) Non-Af 92 BUN/Creatinine Ratio 10.2 Glucose 98 Calcium 8.1 L Total Bilirubin 0.80 Direct Bilirubin 0.20 AST 20 ALT 23 Alkaline Phosphatase 94 Troponin I High Sens 5 4 Total Protein 6.2 L Albumin 3.2 Globulin 3.0 Lipase 31 TSH 7.59 H Radiography Diagnostic Testing: Clinical Impression(s) from Imaging Studies Chest X-Ray 07/13/22 04:32 IMPRESSION: No acute cardiopulmonary abnormality. Electronically Signed: Brandon Porras MD at 4:52 EDT , Chest x-ray as interpreted by the emergency medicine physician reveals no acute infiltrate pneumothorax or pleural effusion Discharge Plan Triage Chief Complaint: Chest Pain ED Provider: Nima Sheehan Dx/Rx/DC Orders Clinical Impression: Nonspecific chest pain, Hypokalemia Instructions: Hypokalemia Dc, ED Chest Pain, Uncertain Cause Prescriptions: No Action cholecalciferol (vitamin D3) 50 mcg (2,000 unit) capsule 50 mcg PO DAILY levothyroxine 100 mcg tablet 100 mcg PO .Mon-Sat Qty: 90 3RF atorvastatin 10 mg tablet 5 mg PO QHS Qty: 45 3RF citalopram 10 mg tablet 10 mg PO DAILY Qty: 30 0RF Primary Care Provider: So Zapata Referrals: So Zapata MD [Primary Care Provider] - Activity Restrictions/Additional Instructions: Please begin taking your Synthroid based on the abnormal value found on today's lab. Your work-up and imaging show no signs of acute cardiac event or lung disorder. Follow-up with your family doctor for repeat evaluation and return to the ER should you have any further concerns Disposition Disposition: Home, Self Care Discharge Date/Time: 07/13/22 07:11
[2022-07-13 07:10] VITALS: BP 108/56; PULSE 72; RESP 16; O2SAT 94
== END 2022-07-13 07:11 | disposition home or self-care (01) ==
PROVIDERS: Emergency Provider Emergency Medicine; PCP Internal Medicine; Visit Provider Emergency Medicine
DX: R07.9 Chest pain, unspecified (principal); E87.6 Hypokalemia; E78.5 Hyperlipidemia, unspecified; E03.9 Hypothyroidism, unspecified; Z79.899 Other long term (current) drug therapy; F32.A Depression, unspecified; Z90.49 Acquired absence of other specified parts of digestive tract
CPT/HCPCS: 71046; 80048; 80076; 83690; 84443; 84484; 85025; 93005; 96361; 96374; 99284; J7030; A4216; J2405

== ENCOUNTER → 2023-05-14 | Outpatient (CLI) | payer BC, SELFPAY ==
[2023-05-14 09:06] LABS: Vitamin D,25 Hydroxy 33.6 ng/mL
[2023-05-14 09:12] LABS: ALB/GLOB Ratio 1.1 RATIO (0.9-2.4); AST(SGOT) 13 U/L (15-37); Alanine Aminotransfer ALT/SGPT 18 U/L (13-56); Albumin, Serum 3.6 g/dL (3.2-5.0); Alkaline Phosphatase 80 U/L (45-117); Anion Gap 4 (5-15); BUN 19 mg/dL (7-18); BUN/Creat Ratio 22.5 RATIO (10-20); Calcium,Total 8.8 mg/dL (8.5-10.1); Chloride 108 mmol/L (98-107); Cholesterol 178 mg/dL (200); Creatinine, Serum 0.84 mg/dL (0.55-1.02); EST Glomerular Filtration Rate 73 mL/min (>60); Est Glom Filt Rate - Afr Amer 88 mL/min (>60); Globulin 3.3 g/dL (2.2-4.2); Glucose 99 mg/dL (74-106); High Density Lipoprotein 51 mg/dL; Protein, Total 6.9 g/dL (6.4-8.2); Sodium Level 141 mmol/L (136-145); T4 Free Direct 1.12 ng/dL (0.76-1.46); Thyroid Stim Hormone (TSH) 0.15 uIU/mL (0.358-3.74); Triglycerides 196 mg/dL; Very Low Density Lipoprotein 39 mg/dL (5-40)
== END | disposition home or self-care (01) ==
LOC: LAB 07:11
PROVIDERS: PCP Internal Medicine; Referring Provider Nurse Practitioner Family; Visit Provider Nurse Practitioner Family
DX: E78.2 Mixed hyperlipidemia (principal); E89.0 Postprocedural hypothyroidism; E55.9 Vitamin D deficiency, unspecified; M85.80 Other specified disorders of bone density and structure, unspecified site
CPT/HCPCS: 36415; 80053; 80061; 82306; 84439; 84443

== ENCOUNTER 2023-06-16 15:53 | Outpatient (CLI) | payer BC, SELFPAY ==
--- NOTE | 2023-06-16 16:03 | BD_ITS ---
STUDY: DUAL ENERGY X-RAY ABSORPTIOMETRY / DXA REASON FOR EXAM: Female, 62 years old. Compare TECHNIQUE: Bone Mineral Density (BMD) measurements of lumbar spine and bilateral hips were obtained. COMPARISON: Comparison is made with prior study dated May 30, 2020. FINDINGS: Lumbar Spine (L1-L4): g/cm2 (0.833) / T-score (-1.9) / Z-score (-0.3) Findings are suggestive of osteopenia with a moderate fracture risk. Left Femur Total: g/cm2 (0.815) / T-score (-1.0) / Z-score (0.1) Left Femoral Neck: g/cm2 (0.709) / T-score (-1.3) / Z-score (0.2) Right Femur Total: g/cm2 (0.794) / T-score (-1.2) / Z-score (-0.1) Right Femoral Neck: g/cm2 (0.699) / T-score (-1.3) / Z-score (0.1) The T-Scores on the most recent prior examination were: Lumbar Spine (L1-L4): There has been worsening of bone density since the previous examination. Left Femur Total: which represents an improvement of 6.6%. Right Femur Total: which represents an improvement of 0.6%. BD/Dexa Bone Density Study IMPRESSION: The patient is considered osteopenic as outlined below according to World [employer]annon Organization (WHO) criteria with a moderate fracture risk. There has been improvement of bone density since the previous examination. Reference Information: The T-score is the number of standard deviations above or below the standard which is normal for young adults at their peak bone mineral density. The World Health Organization (WHO) interprets the T-scores as follows: Above -1 Normal bone density Between -1 and -2.5 Osteopenia Equal to / or below -2.5 Osteoporosis As a practical clinical guideline, osteopenia may be graded as follows: Mild -1 through -1.5 Moderate -1.6 through -2.0 Severe -2.1 through -2.4 The Z-score is the number of standard deviations above or below age-matched controls. A Z-score of less than -1.5 would be considered abnormal. References: 1. NIH Osteoporosis and Related Bone Diseases www osteo.org 2. International Society for Clinical Densitometry www iscd.org 3. National Osteoporosis Foundation www nof.org Electronically Signed: Marky Hicks MD at 10:04 EDT ,
== END 2023-06-16 23:59 | disposition home or self-care (01) ==
PROVIDERS: PCP Internal Medicine; Referring Provider Internal Medicine Endocrinology, Diabetes & Metabolism; Visit Provider Internal Medicine Endocrinology, Diabetes & Metabolism
DX: Z13.820 Encounter for screening for osteoporosis (principal)
CPT/HCPCS: 77080

== ENCOUNTER → 2024-05-13 | Outpatient (CLI) | payer BC, SELFPAY ==
[2024-05-13 07:46] LABS: Absolute Lymphocyte Count 1.51 X10^3/uL (0.83-4.51); Absolute Neutrophil Count 2.5 X10^3/uL (2.0-7.7); Basophil# 0.04 X10^3/uL; Basophil% 0.9 % (0-1); Eosinophil# 0.11 X10^3/uL; Eosinophils% 2.4 % (0-5); Hemoglobin 13.3 g/dL (12.0-15.0); Lymphocyte # 1.51 X10^3/ul (0.83-4.51); Lymphocyte % 33.3 % (19-41); Mean Corp Hgb Conc 33.3 g/dL (32-36); Mean Corpuscular Hgb 29.6 pg (27.0-32.0); Mean Corpuscular Volume 88.9 fL (81-99); Mean Platelet Vol. 11.1 fl (6.2-12.0); Monocyte% 8.8 % (0-10); NRBC Flagged by Analyzer 0 % (0-5); Neutrophil # 2.47 X10^3/uL (2.7-7.7); Neutrophil % 54.4 % (47-70); Platelet Count 153 K/mm3 (150-450); RBC Distribution Width CV 12.4 % (11.6-14.6); RBC Distribution Width SD 40.7 fl (35.1-43.9); White Blood Count 4.5 K/mm3 (4.4-11.0)
[2024-05-13 08:36] LABS: ALB/GLOB Ratio 1.7 RATIO (0.9-2.4); AST(SGOT) 17 U/L (<=31); Alanine Aminotransfer ALT/SGPT 11 U/L (<=34); Albumin, Serum 4.1 g/dL (3.4-4.8); Alkaline Phosphatase 79 U/L (35-104); Anion Gap 10 (5-15); BUN 14 mg/dL (4-19); Calcium,Total 9.3 mg/dL (7.6-11.0); Carbon Dioxide 25.4 mmol/L (21.0-32.0); Chloride 106 mmol/L (98-108); Cholesterol 173 mg/dL (<=200); EST Glomerular Filtration Rate 83 (>60); Globulin 2.5 g/dL (2.2-4.2); Glucose 97 mg/dL (70-99); High Density Lipoprotein 60 mg/dL; Low Density Lipoprotein Calc. 91 mg/dL; Potassium 3.8 mmol/L (3.3-5.1); Protein, Total 6.6 g/dL (5.9-8.4); Sodium Level 142 mmol/L (133-145); Total Bilirubin 1.05 mg/dL (0.00-1.30); Triglycerides 111 mg/dL; Very Low Density Lipoprotein 22 mg/dL (5-40); cholesterol:hdl ratio screen 2.89
[2024-05-13 08:38] LABS: Vitamin D,25 Hydroxy 41.5 ng/mL (30-100)
== END | disposition home or self-care (01) ==
LOC: LAB 07:16
PROVIDERS: PCP Internal Medicine; Referring Provider Internal Medicine Endocrinology, Diabetes & Metabolism; Visit Provider Internal Medicine Endocrinology, Diabetes & Metabolism
DX: E78.2 Mixed hyperlipidemia (principal); E89.0 Postprocedural hypothyroidism
CPT/HCPCS: 36415; 80053; 80061; 82306; 84439; 84443; 85025

== ENCOUNTER 2024-10-16 12:44 | Emergency (ER) | payer BC, SELFPAY ==
[2024-10-16 12:44] VITALS: BP 116/73; PULSE 80; RESP 18; TEMP 36.8; O2SAT 98; BMI 24.7
--- NOTE | 2024-10-16 13:18 | EX.ED.UPPERE ---
HPI History of Present Illness Chief Complaint: Upper Extremity Injury Informant: patient Narrative Narrative: Patient is a [id number] 64-year-old female presenting with right forearm injury. Patient states she had about a week ago (think something hit it in the barn) and been having pain in her right forearm for the past week. She had been babying it and it started to feel better. Today [place] when she yanked her arm and had increased pain. Pain is in her proximal dorsal forearm and worse with supination and pronation. She states she has some paresthesias to the medial part of her thumb and along her proximal fingers 2 through 4. She does not have any weakness. Is not any blood thinners. Took 400 mg of ibuprofen about an hour ago and states it is starting to help. Came in for further evaluation. No other complaints or concerns reported at this time. [facility] Medical History Osteopenia determined by x-ray Vitamin D deficiency Postablative hypothyroidism Chronic cholecystitis Ventral hernia Hyperlipidemia Depression Hypothyroidism Hemorrhoids Cholelithiasis Acute appendicitis Home Medications ?Medication ?Instructions ?Recorded ?Last Taken ?Type cholecalciferol (vitamin D3) 50 50 mcg PO DAILY 05/14/20 Unknown History mcg (2,000 unit) capsule lactobacillus combination no.9 4 4,000 mmu cells PO DAILY 05/19/23 Unknown History billion cell capsule (Adult 50 Plus Probiotic) levothyroxine 75 mcg tablet 75 mcg PO DAILY #90 tabs 05/17/24 Unknown Rx rosuvastatin 5 mg tablet 5 mg PO QDAY #90 tabs 05/17/24 Unknown Rx Allergy/AdvReac Type Severity Reaction Status Date / Time poison jose alberto extract Allergy Severe Itching Verified 10/16/24 12:46 methimazole (From Tapazole) AdvReac Itching Verified 10/16/24 12:46 Family History Father Heart disease Mother Bleeding disorder Sister Kidney disease Surgical History S/P laparoscopic cholecystectomy (~02/08/18) History of appendectomy History of tubal ligation Social History Smoking Status: Never smoker alcohol intake: never what type of physical activity do you participate in: walking and other frequency: 3-4 times per week ROS ROS ED Constitutional Constitutional ED: Denies chills or fever(s) Musculoskeletal Musculoskeletal: Reports other Details: Right forearm pain Integumentary Denies Abrasions or rash Neurologic Neurologic: Reports paresthesias RUE Hematologic/Lymphatic Hematologic/Lymphatic: Denies easy bleeding or easy bruising EXAM Physical Exam Const Vital Signs: 10/16/24 12:44 Temperature 98.3 F Temperature Source Oral Pulse Rate 80 Respiratory Rate 18 Blood Pressure 116/73 Blood Pressure Mean 87 Pulse Ox 98 Oxygen Delivery Method Room Air Positive well nourished and well developed General Appearance ED: well developed and NAD HEENT normocephalic and atraumatic Neck supple Neck Narrative: Normal range of motion of the neck Chest Wall inspection of chest normal Resp normal respiratory effort Extremity Extremity Narrative: No obvious deformity of the extremities. Of the right upper extremity normal elbow with no joint effusion. No bony tenderness. She has palpation of the proximal forearm with some subtle soft tissue swelling noted.Palpation of the distal forearm, compartments are soft. No tense palpation of the distal radius/ulna. No deformity or tenderness of the hand. Pain is increased with extremes of supination and pronation. Neuro oriented x3, moves all extremities and no focal motor deficits Neuro Narrative: Sensation intact to light touch however she reports objective paresthesias to the right thenar eminence and proximal fingers 2 through 4. Sensorium / Orientation: alert Psych mental status grossly normal Skin Lesions: no lesions Rashes: no rashes MDM MDM MDM Narrative Medical decision making narrative: Patient is evaluated for right forearm pain. Had injury a week ago and exacerbated again today [place] the [place]. She does have some mild tenderness and swelling over her brachial radialis on the right. Differential includes muscle strain, microtear and underlying fracture. X-ray obtained of the forearm. X-ray viewed by myself as well as radiology does not show an acute fracture. Patient took NSAIDs prior to arrival. Patient be treated as strain. She is neuro vastly intact. Given outpatient orthopedic referral. Given return precautions. Counseled RICE therapy. Indra wrap applied to her forearm. Discharge Plan Triage Chief Complaint: Upper Extremity Injury ED Provider: Sophie Williamson Dx/Rx/DC Orders Clinical Impression: Muscle strain of right forearm Instructions: ED Muscle Strain, Extremity Prescriptions: No Action cholecalciferol (vitamin D3) 50 mcg (2,000 unit) capsule 50 mcg PO DAILY Adult 50 Plus Probiotic 4 billion cell capsule 4,000 mmu cells PO DAILY Rx Instructions: administer with a meal levothyroxine 75 mcg tablet 75 mcg PO DAILY Qty: 90 3RF rosuvastatin 5 mg tablet 5 mg PO QDAY Qty: 90 3RF Primary Care Provider: So Zapata Referrals: So Zapata MD [Primary Care Provider] - Santy Lundberg MD [Med Staff - Active Staff] - Activity Restrictions/Additional Instructions: Take up to 600 mg ibuprofen ([id number] 3 pills) every 6 hours as needed for pain and inflammation/swelling. Wear Indra wrap. Try to rest your arm and ice it. If is not improving please follow-up with orthopedics. I suspect you might have a strain to your brachioradialis muscle Print Language: Belgian Disposition Disposition: Home, Self Care Discharge Date/Time: 10/16/24 14:37
--- NOTE | 2024-10-16 13:25 | RAD_ITS ---
PROCEDURE: FOREARM 2 VIEWS 10/16/2024 REASON FOR EXAM: PAIN, INURY TECHNIQUE: Procedure Code: RADFA Modality: DX Procedure: FOREARM 2 VIEWS Laterality: Right COMPARISON: None FINDINGS: Bones: No fractures and no dislocations. Radius and ulna negative. Joints: Wrist and elbow articulations negative. Soft tissues: Adjacent soft tissues negative. Other: Remainder of the exam negative. RAD/Forearm 2 Views IMPRESSION: Negative right forearm. Reading Location: [id number]
--- OUTSIDE RECORDS SUMMARY | 2024-10-16 13:34 | XMS RPT_ITS | CCD ---
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 Nury Zapata Primary Care Provider [phone] Dr. Nury Zapata Referring Provider Dr. Mario Beck Attending Provider [phone] Nury Zapata MD Primary Care Provider Dr. Nury Zapata Primary Care Provider [phone] Dr. Nury Zapata Referring Provider Dr. Mario Beck Attending Provider [phone] Nury Zapata MD Primary Care Provider LAUREL PONCE Attending Unavailable NRUY ZAPATA Primary Care Unavailable NURY ZAPATA Referring Unavailable NURY ZAPATA Primary Care Unavailable Benny CAMPOS, Dr. Nury Harris Primary Care Provider [phone] Dr. Mario Beck MD Attending Provider Dr. Mario Beck MD Referring Provider Dr. Nury Zapata MD Referring Provider [phone] Nury Zapata Primary Care Unavailable Nury Zapata Referring Unavailable Mario Beck Attending Unavailable Nury Zapata Primary Care Unavailable Mario Beck Attending Unavailable Mario Beck Referring Unavailable Nury Zapata Primary Care Unavailable Mario Beck Attending Unavailable Mario Beck Referring Unavailable Allergies Allergy Classification Reported Allergen(s) Allergy Type Date of Onset Reaction(s) Facility (20 sources) methIMAzole; Translations: [METHIMAZOLE] Drug Allergy 9 Itching [facility] Other [place] [facility] (20 sources) POISON SHIVANI EXTRACT; Translations: [POISON SHIVANI EXTRACT] Drug Allergy 9 Hives, Swelling [facility] Work Phone: (2 sources) METHAMESAZONE Propensity to adverse reactions 2 Itching [facility] (1 source) poison shivani extract Drug allergy (disorder) 5 [facility] Repository Medications Current Medications Medication Drug Class(es) Dates Sig (Normalized) Sig (Original) bacillus coagulans [id number] unt chewable tablet (6 sources) take 2 tablets by mouth twice daily Bacillus coagulans (DIGESTIVE ADVANTAGE PROB GUMMY) 250 million cell Take 2 tablets by mouth twice daily. Active Comment on above: Take 2 tablets by mo uth twice daily. busPIRone hydrochloride 5 mg oral tablet (1 source) Start: 12-17-2023 take 1 tablet by mouth every eight hours as needed busPIRone (BUSPAR) 5 mg tablet Take 1 tablet by mouth three times a day as needed. 30 tablet 4 12/17/2023 Active cholecalciferol 0.05 mg oral capsule (6 sources) Vitamin D Start: 05-14-2020 take 1 capsule by mouth once daily Cholecalciferol (Vitamin D3) 50 mcg (2,000 unit) capsule Active 50 ug PO DAILY May 14, 2020 12:00am cholecalciferol, vitamin D3, (VITAMIN D3 50 MCG, 2,000 UNIT, GUMMIES) (6 sources) cholecalciferol, vitamin D3, (VITAMIN D3 50 MCG, 2,000 UNIT, GUMMIES) Take 2 Doses by mouth twice daily. Active cholecalciferol, vitamin D3, (VITAMIN D3 50 MCG, 2,000 UNIT, GUMMIES) Take 2 Doses by mouth twice daily. 0 Active Comment on above: Take 2 Doses by mout h twice daily. Lactobacillus Combination No.9 (Adult 50 Plus Probiotic) 4 billion cell capsule (1 source) Start: 4 take 4 capsules by mouth once daily Lactobacillus Combination No.9 (Adult 50 Plus Probiotic) 4 billion cell capsule Active 4000 NMA PO DAILY May 19, 2023 12:00am administer with a meal levothyroxine sodium 0.075 mg oral tablet (20 sources) l-Thyroxine Start: End: take 1 tablet by mouth once daily Levothyroxine 75 mcg tablet Active 75 ug PO DAILY May 17, 2024 4:31pm Start: 05-19-2022 End: 05-19-2023 Levothyroxine 100 mcg tablet Discontinued 100 ug PO .Mon-Sat May 19, 2022 4:11pm May 19, 2023 4:39pm Start: 05-20-2021 End: 05-19-2022 Levothyroxine 100 mcg tablet Discontinued 100 ug PO .1 qd, 1/2 on SundaysMay 20, 2021 4:13pm May 19, 2022 4:11pm Start: 05-14-2020 End: 08-14-2021 take 1 tablet by mouth once daily Levothyroxine 100 mcg tablet Discontinued 100 ug PO DAILY April 10, 2021 2:00pm May 20, 2021 4:13pm Start: 07-29-2016 End: 05-14-2020 Levothyroxine 125 MCG tablet Discontinued 112 ug PO DAILY July 29, 2016 12:00am May 14, 2020 3:04pm Start: 07-29-2016 End: 05-14-2020 take 112 ug by mouth once daily Levothyroxine Discontinued 112 MCG PO DAILY July 29, 2016 12:00am May 14, 2020 3:04pm Comment on above: Take 1 tablet by [facility] daily before breakfast. Take daily 6 days a week only. Prescribed by Dr. Mario Beck nitrofurantoin, macrocrystals 25 mg / nitrofurantoin, monohydrate 75 mg oral capsule (1 source) Nitrofuran Antibacterial Start: 10-13-19 End: 10-18-19 take 1 capsule by mouth twice daily nitrofurantoin monohydrate and macrocrystal (MACROBID) 100 mg capsule Take 1 capsule by mouth twice daily for 5 days. 10 capsule 0 10/12/2022 10/17/2022 Active Comment on above: Take 1 capsule by mo [facility] twice daily for 5 days. rosuvastatin calcium 5 mg oral tablet (1 source) HMG-CoA Reductase Inhibitor Start: 05-18-19 take 1 tablet by mouth once daily Rosuvastatin 5 mg tablet Active 5 mg PO daily May 17, 2024 12:00am Completed/Discontinued Medications Medication Drug Class(es) Dates Sig (Normalized) Sig (Original) acetaminophen 325 mg / HYDROcodone bitartrate 5 mg oral tablet (6 sources) Opioid Agonist Start: 02-08-2018 End: 02-11-2018 Hydrocodone-Acetami nophen 1 TABLET tablet Discontinued 1 {tbl} PO EVERY 6 HOURS NEEDED as needed for Pain 8 February 08, 2018 1:00am February 10, 2018 1:00am February 11, 2018 1:11am Start: 02-08-2018 End: 02-11-2018 take 1 tablet by mouth every six hours as needed Hydrocodone-Acetaminophen Discontinued 1 TABLET PO EVERY 6 HOURS NEEDED 8 February 08, 2018 1:00am February 11, 2018 1:11am atorvastatin 10 mg oral tablet (20 sources) HMG-CoA Reductase Inhibitor Start: 12-05-2020 End: 08-14-2021 take 0.5 tablet by mouth once daily atorvastatin (LIPITOR) 10 mg tablet Indications: Mixed hyperlipidemia Take 0.5 tablets by mouth once daily. 45 tablet 3 08/14/2021 Active Start: 07-29-2016 End: 05-17-2024 take 5 mg by mouth at bedtime Atorvastatin 10 mg table t Discontinued 5 mg PO AT BEDTIME May 19, 2023 4:40pm May 17, 2024 4:32pm Start: 07-29-2016 End: 05-19-2022 take 5 mg by mouth at bedtime Atorvastatin Discontinue d 5 MG PO AT BEDTIME May 20, 2021 4:18pm May 19, 2022 4:12pm Comment on above: Take 0.5 tablets by mouth once daily. citalopram 10 mg oral tablet (20 sources) Serotonin Reuptake Inhibitor Start: 10-25-2019 End: 12-17-2023 take 0.5 tablet by mouth once daily citalopram (CELEXA) 20 mg tablet Indications: Anxiety Take 0.5 tablets by mouth once daily. as directed 90 tablet 3 07/14/2022 12/17/2023 Discontinued Start: 07-29-2016 End: 05-17-2024 take 1 tablet by mouth once daily Citalopram 10 mg tablet Discontinued 10 mg PO DAILY June 17, 2022 11:31am May 17, 2024 4:00pm Comment on above: Take 0.5 tablets by mouth once daily. as directed doxycycline hyclate 100 mg oral tablet (6 sources) Tetracycline-class Drug Start: 08-06-19 End: 01-19-20 take 1 tablet by mouth twice daily Doxycycline Hyclate 100 MG tablet Discontinued 100 mg PO TWICE A DAY August 05, 2017 12:00am January 18, 2018 3:19pm ondansetron 4 mg disintegrating oral tablet (11 sources) Serotonin-3 Receptor Antagonist Start: 07-15-19 End: 12-17-19 take 1 tablet by mouth every six hours as needed ondansetron orally disintegrating (ZOFRAN ODT) 4 mg disintegrating tablet Take 1 tablet by mouth every 6 hours as needed for nausea/vomiting. 40 tablet 1 07/14/2022 12/17/2023 Discontinued Start: 08-04-2017 End: 01-18-2018 take 1 tablet by mouth every eight hours as needed for nausea Ondansetron 4 MG tablet Discontinued 4 mg PO EVERY 8 HOURS NEEDED as needed for Nausea August 04, 2017 12:00am January 18, 2018 3:20pm Comment on above: Take 1 tablet by flo every 6 hours as needed for nausea/vomiting. potassium chloride 10 meq extended release oral capsule (5 sources) Start: 07-15-19 End: 12-17-19 potassium chloride SR (MICRO-K) 10 mEq CR capsule Take 2 capsules by mouth twice daily. 28 capsule 07/14/2022 12/17/2023 Discontinued Comment on above: Take 2 capsules by out twice daily. predniSONE 20 mg oral tablet (6 sources) Start: 08-11-19 End: 01-19-20 take 2 tablets by mouth once daily at mealtime Prednisone 20 MG tablet Discontinued 40 mg PO DAILY August 10, 2017 12:00am January 18, 2018 3:20pm With food Start: 08-10-2017 End: 01-18-2018 take 40 mg by mouth once daily at mealtime Prednisone Discontinued 40 MG PO DAILY August 10, 2017 12:00am January 18, 2018 3:20pm With food tinidazole 500 mg oral tablet (2 sources) Nitroimidazole Antimicrobial Start: 07-13-2022 End: 07-14-2022 take 4 tablets by mouth once tinidazole (TINDAMAX) 500 mg tablet Take 4 tablets by mouth one time only for 1 dose. Okay to crush 4 tablet 0 07/14/2022 07/14/2022 Comment on above: Take 4 tablets by mo uth one time only for 1 dose. Take 4 tablets by mo uth one time only for 1 dose. Okay to crush Problems Active Problems Problem Classification Problem Date Documented Da te Episodic/Chronic Abdominal hernia (12 sources) Hernia of anterior abdominal wall; Translations: [Ventral hernia without obstruction or gangrene] Onset: 9 Resolved: 2 10-21-2019 Episodic Anxiety disorders (16 sources) Anxiety disorder; Translations: [Anxiety disorder, unspecified] Onset: 2 Chronic Appendicitis and other appendiceal conditions (12 sources) Acute appendicitis; Translations: [Unspecified acute appendicitis] Onset: 7 Resolved: 2 08-08-2016 Episodic Biliary tract disease (12 sources) Chronic cholecystitis with calculus; Translations: [Calculus of gallbladder with chronic cholecystitis without obstruction] 02-08-2018 Episodic Coagulation and hemorrhagic disorders (18 sources) Platelet count below reference range; Translations: [Thrombocytopenia, unspecified] Onset: 1 08-30-2010 Chronic Complications of surgical procedures or medical care (13 sources) Postablative hypothyroidism; Translations: [Postprocedural hypothyroidism] Onset: 5 Chronic Disorders of lipid metabolism (20 sources) Hyperlipidemia; Translations: [Hyperlipidemia, unspecified] Onset: 5 12-25-2014 Chronic Esophageal disorders (1 source) Gastroesophageal reflux disease; Translations: [Gastro-esophageal reflux disease without esophagitis] Chronic Fluid and electrolyte disorders (8 sources) Acute hypokalemia; Translations: [Hypokalemia] 07-11-2022 Episodic Genitourinary symptoms and ill-defined conditions (1 source) Dysuria; Translations: [Dysuria] 10-12-2022 Episodic Immunizations and screening for infectious disease (8 sources) Patient encounter status; Translations: [Encounter for screening for human papillomavirus (HPV)] Episodic Intestinal infection (1 source) Giardiasis; Translations: [Giardiasis [lambliasis]] Episodic Nonspecific chest pain (3 sources) Chest pain; Translations: [Chest pain, unspecified] 07-13-2022 Episodic Nutritional deficiencies (20 sources) Vitamin D deficiency; Translations: [Vitamin D deficiency, unspecified] Onset: 1 06-25-2010 Chronic Other bone disease and musculoskeletal deformities (4 sources) X-ray evidence of poor mineralization; Translations: [Other specified disorders of bone density and structure, unspecified site] 05-20-2021 Episodic Other bone disease and musculoskeletal deformities (4 sources) Other specified disorders of bone density and structure, unspecified site; Translations: [Disorder of bone and cartilage, unspecified] Episodic Other bone disease and musculoskeletal deformities (2 sources) Osteopenia; Translations: [Other specified disorders of bone density and structure, unspecified site] 05-20-2021 Episodic Other gastrointestinal disorders (5 sources) Diarrhea; Translations: [Diarrhea, unspecified] Episodic Other injuries and conditions due to external causes (1 source) Injury of right hand; Translations: [Unspecified injury of right wrist, hand and finger(s), initial encounter] Episodic Other nutritional; endocrine; and metabolic disorders (2 sources) Obesity; Translations: [Obesity, unspecified] Onset: 6 06-04-2005 Chronic Other upper respiratory disease (6 sources) Chronic rhinitis; Translations: [Chronic rhinitis] Onset: 8 Resolved: 2 02-25-2007 Chronic Superficial injury; contusion (6 sources) Contusion of knee; Translations: [Contusion of left knee, initial encounter] 06-11-2020 Episodic Thyroid disorders (19 sources) Hypothyroidism; Translations: [Hypothyroidism, unspecified] Onset: 9 Resolved: 1 08-14-2010 Chronic Past or Other Problems Problem Classification Problem Date Documented Da te Episodic/Chronic Calculus of urinary tract (4 sources) Kidney stone; Translations: [Calculus of kidney] Onset: 06-04-2005 Resolved: 12-30-2011 12-30-2011 Episodic Diseases of mouth; excluding dental (6 sources) Sialoadenitis; Translations: [Sialoadenitis, unspecified] Onset: 11-02-2007 Resolved: 08-14-2021 11-02-2007 Episodic Nutritional deficiencies (4 sources) Iron deficiency; Translations: [Iron deficiency] Onset: 08-30-2010 Resolved: 01-15-2011 01-15-2011 Episodic Other connective tissue disease (6 sources) Bilateral plantar fasciitis; Translations: [Plantar fascial fibromatosis] Resolved: 08-14-2021 02-05-2021 Episodic Other hereditary and degenerative nervous system conditions (4 sources) Tremor; Translations: [Essential tremor] Onset: 11-02-2007 Resolved: 05-21-2010 05-21-2010 Chronic Other nervous system disorders (4 sources) Abnormal reflex; Translations: [Abnormal reflex] Onset: 03-17-2008 Resolved: 05-21-2010 05-21-2010 Episodic Other screening for suspected conditions (not mental disorders or infectious disease) (6 sources) Blood chemistry abnormal; Translations: [Other specified abnormal findings of blood chemistry] Onset: 06-04-2005 Resolved: 05-21-2010 05-21-2010 Episodic Residual codes; unclassified (15 sources) Family history of ischemic heart disease; Translations: [Family history of ischemic heart disease and other diseases of the circulatory system] Onset: 11-13-2006 02-25-2007 Episodic Spondylosis; intervertebral disc disorders; other back problems (6 sources) Inflammation of sacroiliac joint; Translations: [Sacroiliitis, not elsewhere classified] Onset: 11-13-2006 Resolved: 08-14-2021 02-25-2007 Chronic Unclassified (1 source) Asymptomatic menopausal state; Translations: [Asymptomatic menopausal state] Onset: 02-03-2017 Episodic Results Test Name Value Interpretation Reference Range Facility Endocrinology Visit Reporton 05-17-2024 Endocrinology Visit Report [facility] [address] [place] [address] OFFICE VISIT Date of Service: 05/17/24 MR#: [id number] Acct: [id number] Name: HEIDI MARAVILLA Rep #: [id number] : 1960 Provider: Veronica Nath Age/Sex: 63/F [place] [facility] [place]: Signed Intake Vital Signs 05/19/23 15:54 06/16/23 15:56 05/17/24 15:57 Height 5 ft 3 in 5 ft 3 in 5 ft 3 in Weight: 158 lb 142 lb 8 oz BMI 28.0 25.2 BP 114/74 125/76 H Blood Pressure Location Lt brachial Rt brachial Position Sitting Sitting Pulse 65 68 Pulse Source Monitor Monitor Pulse Oximetry (%) 95 96 Oxygen Delivery Method room air room air Intake Visit Reasons: 1 Y FU Chief Complaint: Hypothyroidism/lipids Is patient in pain?: No Allergies poison shivani extract Allergy (Severe, Verified 05/17/24 15:59) Itching methimazole (From Tapazole) Adverse Reaction (Verified 05/17/24 15:59) Itching Medications ???Medication ???Instructions ???Recorded ???Confirmed ???Type cholecalciferol (vitamin D3) 50 50 mcg PO DAILY 05/14/20 05/17/24 History mcg (2,000 unit) capsule lactobacillus combination no.9 4 4,000 mmu cells PO DAILY 05/19/23 05/17/24 History billion cell capsule (Adult 50 Plus Probiotic) levothyroxine 75 mcg tablet 75 mcg PO DAILY #90 tabs 05/17/24 05/17/24 Rx rosuvastatin 5 mg tablet 5 mg PO QDAY #90 tabs 05/17/2410/03 Rx PFSH Medical History Osteopenia determined by x-ray Vitamin D deficiency Postablative hypothyroidism Chronic cholecystitis Ventral hernia Hyperlipidemia Depression Hypothyroidism Hemorrhoids Cholelithiasis Acute appendicitis Surgical History S/P laparoscopic cholecystectomy ( 02/08/18) History of appendectomy History of tubal ligation Family History Father Heart disease Mother Bleeding disorder Sister Kidney disease Social History Smoking Status: Never smoker alcohol intake: never what type of physical activity do you participate in: walking and other frequency: 3-4 times per week HPI HPI Chief Complaint: Hypothyroidism/lipids Details: HEIDI MARAVILLA, is a 63 F who presents to the office today for follow up. She has hypothyroidism that is well controlled on levothyroxine. She has hyperlipidemia that is well controlled on rosuvastatin. Labs are reviewed. She has lost 16 pounds. She would like to lose 5 more. She has URI. ROS Const Constitutional: No fatigue, weight change or change in appetite Eyes Eyes: No change in vision ENT ENT: Positive for sinus pressure and post nasal drip; No dizziness/vertigo or difficulty swallowing Cardio Cardiology: No chest pain at rest, chest pain with exertion, shortness of breath or palpitations Musc Musculoskeletal: No abnormal gait, joint pain, numbness or tingling Neuro Neurology: No abnormal gait, memory loss, numbness or tingling Psych Psychiatric: No change in appetite, No memory loss and No Thoughts of harming yourself/Others Resp Respiratory: No cough, chest congestion or shortness of breath Gastro GI: No abdominal pain, constipation, diarrhea or difficulty swallowing Genitourinary-Female: No burning urination Skin Skin: No itchy eyes or wounds Endo Endocrine: No fatigue or weight change Aller/Imm Allergy/Immunologic: No itchy eyes Exam Const General: cooperative, healthy appearing, comfortable, no acute distress, well developed and not cushingoid Nutritional Appearance: well nourished Orientation: alert, awake and oriented x3 HENMT Head: normal to inspection Ears: hearing grossly normal bilaterally Nose: external nose normal and nasal discharge Mouth: oral mucosae normal Eyes General: appearance normal, both eyes and all related structures Alignment and Position: alignment normal Periorbital: periorbital findings normal Eyelids: eyelids normal Conjunctivae: conjunctivae normal Neck Neck: normal visual inspection Neck mass: No Thyroid: thyroid normal Lymphatic: no lymphadenopathy noted Chest Chest palpation inspection: normal inspection of the chest Resp Effort Inspection: normal respiratory effort, able to speak in complete sentences, symmetric chest movement, no audible wheezes and cough Auscultation: Bilateral: Clear to Auscultation Cardio Rate: regular rate Rhythm: regular rhythm Pulses: posterior tibial pulses present Skin General: no rashes or lesions noted Neuro General: patient alert, patient awake and patient oriented x3 Cranial Nerves: CN's II-XI intact bilaterally Cognition: normal cognition Sp (more content not included)... Normal [facility] Absolute neutrophil countOrd ered By: Mario Beck on 05-13-2024 Neutrophils (Bld) [#/Vol] 2.5 10*3/uL 2.0-7.7 [facility] Anion gap in Serum or Plasma Ordered By: Mario Beck on 05-13-2024 Anion gap [Moles/Vol] 10 mmol/L 5-15 [facility] BUN/creatinine ratioOrdered By: Mario Beck on 05-13-2024 Urea nitrogen/Creatinine [Mass ratio] 18.0 mg/mg 10-20 [facility] Basophil percentageOrdered B y: Mario Beck on 05-13-2024 Basophils/100 WBC (Bld) 0.9 % 0-1 [facility] Bilirubin, totalOrdered By: Maroiaure Beck on 05-13-2024 Bilirubin [Mass/Vol] 1.05 mg/dL 0.00-1.30 [facility] CBC W/Diff, Automatedon 04-0 Absolute Lymph 1.51 X10 3/uL Normal 0.83-4.51 [facility] Comment on above: Performed By: #### L [id number], L500.4100, L100.0100, L500.4050, L506.1001, L506.0400 #### [facility] [address] [place], [address] Absolute Neut 2.5 X10 3/uL Normal 2.0-7.7 [facility] Comment on above: Performed By: #### L [id number], L500.4100, L100.0100, L500.4050, L506.1001, L506.0400 #### [facility] [address] [place], [address] Basophils/100 WBC (Bld) 0.9 % Normal 0-1 [facility] Comment on above: Performed By: #### L [id number], L500.4100, L100.0100, L500.4050, L506.1001, L506.0400 #### [facility] [address] [place], [address] Eosinophils/100 WBC (Bld) 2.4 % Normal 0-5 [facility] Comment on above: Performed By: #### L [id number], L500.4100, L100.0100, L500.4050, L506.1001, L506.0400 #### [facility] [address] [place], [address] Erythrocyte distribution width (RBC) [Ratio] 12.4 % Normal 11.6-14.6 [facility] Comment on above: Performed By: #### L [id number], L500.4100, L100.0100, L500.4050, L506.1001, L506.0400 #### [facility] [address] [place], [address] Hematocrit (Bld) [Volume fraction] 40.0 % Normal 37-47 [facility] Comment on above: Performed By: #### L [id number], L500.4100, L100.0100, L500.4050, L506.1001, L506.0400 #### [facility] [address] [place], [address] Hemoglobin (Bld) [Mass/Vol] 13.3 g/dL Normal 12.0-15.0 [facility] Comment on above: Performed By: #### L [id number], L500.4100, L100.0100, L500.4050, L506.1001, L506.0400 #### [facility] [address] [place], [address] IG% 0.200 Normal 0.0-0.9 [facility] Comment on above: Result Comment: IG% - Immature Granulocytes (promyelocytes, myelocytes and metamyelocytes) > 1% indicates that a LEFT SHIFT is Present. Performed By: #### L [id number], L500.4100, L100.0100, L500.4050, L506.1001, L506.0400 #### [facility] [address] [place], [address] Lymphocytes/100 WBC (Bld) 33.3 % Normal 19-41 [facility] Comment on above: Performed By: #### L [id number], L500.4100, L100.0100, L500.4050, L506.1001, L506.0400 #### [facility] [address] [place], [address] MCH (RBC) [Entitic mass] 29.6 pg Normal 27.0-32.0 [facility] Comment on above: Performed By: #### L [id number], L500.4100, L100.0100, L500.4050, L506.1001, L506.0400 #### [facility] [address] [place], [address] MCHC (RBC) [Mass/Vol] 33.3 g/dL Normal 32-36 [facility] Comment on above: Performed By: #### L [id number], L500.4100, L100.0100, L500.4050, L506.1001, L506.0400 #### [facility] [address] [place], [address] MCV (RBC) [Entitic vol] 88.9 fL Normal 81-99 [facility] Comment on above: Performed By: #### L [id number], L500.4100, L100.0100, L500.4050, L506.1001, L506.0400 #### [facility] [address] [place], [address] Monocytes/100 WBC (Bld) 8.8 % Normal 0-10 [facility] Comment on above: Performed By: #### L [id number], L500.4100, L100.0100, L500.4050, L506.1001, L506.0400 #### [facility] [address] [place], [address] Neutrophils/100 WBC (Bld) 54.4 % Normal 47-70 [facility] Comment on above: Performed By: #### L [id number], L500.4100, L100.0100, L500.4050, L506.1001, L506.0400 #### [facility] [address] [place], [address] Nucleated RBC (Bld) [#/Vol] 0 10*3/uL Normal 0-5 [facility] Comment on above: Performed By: #### L [id number], L500.4100, L100.0100, L500.4050, L506.1001, L506.0400 #### [facility] [address] [place], [address] Platelet mean volume (Bld) [Entitic vol] 11.1 fL Normal 6.2-12.0 [facility] Comment on above: Performed By: #### L 501.9520, L500.4100, L100.0100, L500.4050, L506.1001, L506.0400 #### [facility] [address] [place], [address] Platelets (Bld) [#/Vol] 153 10*3/uL Normal 150-450 [facility] Comment on above: Performed By: #### L 501.9520, L500.4100, L100.0100, L500.4050, L506.1001, L506.0400 #### [facility] [address] [place], [address] RBC (Bld) [#/Vol] 4.50 10*6/uL Normal 4.2-5.4 [facility] Comment on above: Performed By: #### L 501.9520, L500.4100, L100.0100, L500.4050, L506.1001, L506.0400 #### [facility] [address] [place], [address] RDW SD 40.7 fl Normal 35.1-43.9 [facility] Comment on above: Performed By: #### L 501.9520, L500.4100, L100.0100, L500.4050, L506.1001, L506.0400 #### [facility] [address] [place], [place], [id number] WBC (Bld) [#/Vol] 4.5 10*3/uL Normal 4.4-11.0 [facility] Comment on above: Performed By: #### L 501.9520, L500.4100, L100.0100, L500.4050, L506.1001, L506.0400 #### [facility] [address] [place], [place], [id number] Calculated very low density lipoprotein (VLDL) cholesterol measurementOrdered By: Mario Beck on 05-13-2024 VLDL Cholesterol 22 mg/dL 5-40 [facility] Carbon dioxide, total [Moles /volume] in Central venous bloodOrdered By: Mario Beck on 05-13-2024 CO2 [Moles/Vol] 25.4 mmol/L 21.0-32.0 [facility] Chloride assayOrdered By: Alejandro Beck on 05-13-2024 Chloride [Moles/Vol] 106 mmol/L 98-108 [facility] Comprehensive Metabolic Prof ilon 05-13-2024 Albumin [Mass/Vol] 4.1 g/dL Normal 3.4-4.8 [facility] Comment on above: Performed By: #### L 501.9520, L500.4100, L100.0100, L500.4050, L506.1001, L506.0400 #### [facility] [address] [place], [place], [id number] Albumin/Globulin [Mass ratio] 1.7 {ratio} Normal 0.9-2.4 [facility] Comment on above: Performed By: #### L 501.9520, L500.4100, L100.0100, L500.4050, L506.1001, L506.0400 #### [facility] [address] [place], [address] ALK PHOS 79 U/L Normal 35-104 [facility] Comment on above: Performed By: #### L 501.9520, L500.4100, L100.0100, L500.4050, L506.1001, L506.0400 #### [facility] [address] [place], [address] ALT [Catalytic activity/Vol] 11 U/L Normal <=34 [facility] Comment on above: Performed By: #### L 501.9520, L500.4100, L100.0100, L500.4050, L506.1001, L506.0400 #### [facility] [address] [place], [address] AST [Catalytic activity/Vol] 17 U/L Normal <=31 [facility] Comment on above: Performed By: #### L 501.9520, L500.4100, L100.0100, L500.4050, L506.1001, L506.0400 #### [facility] [address] [place], [address] Bilirubin [Mass/Vol] 1.05 mg/dL Normal 0.00-1.30 [facility] Comment on above: Performed By: #### L 501.9520, L500.4100, L100.0100, L500.4050, L506.1001, L506.0400 #### [facility] [address] [place], [address] BUN/CRE 18.0 RATIO Normal 10-20 [facility] Comment on above: Performed By: #### L 501.9520, L500.4100, L100.0100, L500.4050, L506.1001, L506.0400 #### [facility] [address] [place], [address] Calcium [Mass/Vol] 9.3 mg/dL Normal 7.6-11.0 [facility] Comment on above: Performed By: #### L 501.9520, L500.4100, L100.0100, L500.4050, L506.1001, L506.0400 #### [facility] [address] [place], [address] Chloride [Moles/Vol] 106 mmol/L Normal 98-108 [facility] Comment on above: Performed By: #### L 501.9520, L500.4100, L100.0100, L500.4050, L506.1001, L506.0400 #### [facility] [address] [place], [address] CO2 [Moles/Vol] 25.4 mmol/L Normal 21.0-32.0 [facility] Comment on above: Performed By: #### L 501.9520, L500.4100, L100.0100, L500.4050, L506.1001, L506.0400 #### [facility] [address] [place], [address] Creatinine [Mass/Vol] 0.80 mg/dL Normal 0.70-1.20 [facility] Comment on above: Performed By: #### L 501.9520, L500.4100, L100.0100, L500.4050, L506.1001, L506.0400 #### [facility] [address] [place], [address] GAP 10 Normal 5-15 [facility] Comment on above: Performed By: #### L 501.9520, L500.4100, L100.0100, L500.4050, L506.1001, L506.0400 #### [facility] [address] [place], [address] GFR/1.73 sq M.predicted among non-blacks MDRD (S/P/Bld) [Vol rate/Area] 83 mL/min/{1.73_m2} Normal >60 [facility] Comment on above: Result Comment: mL/m in/1.73m2 CKD-EPI Creatinine Equation (2020) Performed By: #### L 501.9520, L500.4100, L100.0100, L500.4050, L506.1001, L506.0400 #### [facility] [address] [place], [address] Globulin (S) [Mass/Vol] 2.5 g/dL Normal 2.2-4.2 [facility] Comment on above: Performed By: #### L 501.9520, L500.4100, L100.0100, L500.4050, L506.1001, L506.0400 #### [facility] [address] [place], [address] Glucose [Mass/Vol] 97 mg/dL Normal 70-99 [facility] Comment on above: Performed By: #### L 501.9520, L500.4100, L100.0100, L500.4050, L506.1001, L506.0400 #### [facility] [address] [place], [address] Potassium [Moles/Vol] 3.8 mmol/L Normal 3.3-5.1 [facility] Comment on above: Performed By: #### L 501.9520, L500.4100, L100.0100, L500.4050, L506.1001, L506.0400 #### [facility] [address] [place], [address] Sodium [Moles/Vol] 142 mmol/L Normal 133-145 [facility] Comment on above: Performed By: #### L 501.9520, L500.4100, L100.0100, L500.4050, L506.1001, L506.0400 #### [facility] [address] [place], [address] T PROT 6.6 g/dL Normal 5.9-8.4 [facility] Comment on above: Performed By: #### L 501.9520, L500.4100, L100.0100, L500.4050, L506.1001, L506.0400 #### [facility] [address] [place], [address] Urea nitrogen [Mass/Vol] 14 mg/dL Normal 4-19 [facility] Comment on above: Performed By: #### L 501.9520, L500.4100, L100.0100, L500.4050, L506.1001, L506.0400 #### [facility] [address] [place], [address] Eosinophil percentageOrdered By: Mario Beck on 05-13-2024 Eosinophils/100 WBC (Bld) 2.4 % 0-5 [facility] Erythrocyte distribution wid th (RBC) [Ratio]Ordered By: Mario Beck on 05-13-2024 Erythrocyte distribution width (RBC) [Entitic vol] 40.7 fL 35.1-43.9 [facility] Erythrocyte distribution wid th ratioOrdered By: Mario Beck on 05-13-2024 Erythrocyte distribution width (RBC) [Ratio] 12.4 % 11.6-14.6 [facility] GFR/1.73 sq M.predicted aleksander g non-blacks MDRD (S/P/Bld) [Vol rate/Area]Ordered By: Mario Beck on 05-13-2024 Estimated GFR (MDRD) Non-Af Amer 83 >60 [facility] Comment on above: mL/min/1.73m2 CKD-EP I Creatinine Equation (2020) Hematocrit Auto (Bld) [Volum e fraction]Ordered By: Mario Beck on 05-13-2024 Hematocrit (Bld) [Volume fraction] 40.0 % 37-47 [facility] Hemoglobin measurementOrdere d By: Mario Beck on 05-13-2024 Hemoglobin (Bld) [Mass/Vol] 13.3 g/dL 12.0-15.0 [facility] Immature granulocytes/100 WB C Auto (Bld)Ordered By: Mario Beck on 05-13-2024 Immature granulocytes/100 WBC (Bld) 0.200 % 0.0-0.9 [facility] Comment on above: IG% - Immature Granu locytes (promyelocytes, myelocytes and metamyelocytes) > 1% indicates that a LEFT SHIFT is Present. LDL calc ser/plasOrdered By: Mario Beck on 05-13-2024 LDL Cholesterol, Calculated 91 mg/dL [facility] Comment on above: Xpigqpfxae=584-432 m g/dL & Higher Zcdk=832 mg/dL or greater Laboratory - Chemistry and C hemistry - challengeOrdered By: Mario Beck on 05-13-2024 AST [Catalytic activity/Vol] 17 U/L <32 [facility] Lipid Profileon 05-13-2024 CHOL:HDL 2.89 Normal [facility] Comment on above: Performed By: #### L 501.9520, L500.4100, L100.0100, L500.4050, L506.1001, L506.0400 #### [facility] [address] [place], [place], [id number] (482) Cholesterol [Mass/Vol] 173 mg/dL Normal <=200 [facility] Comment on above: Result Comment: Chol esterol level, Desirable <200 mg/dL Borderline high cholesterol 200-239 mg/dL High cholesterol >=240 mg/dL Recommendations of the NCEP Adult Treatment Panel for the following risk-cutoff thresholds for the [place] population. Performed By: #### L 501.9520, L500.4100, L100.0100, L500.4050, L506.1001, L506.0400 #### [facility] [address] [place], [address] Cholesterol in HDL [Mass/Vol] 60 mg/dL Normal [facility] Comment on above: Result Comment: Tamara onal Cholesterol Education Program (NCEP) guidelines: <40 mg/dL: Low HDL-cholesterol (major risk factor for CHD) >= 60 mg/dL: High HDL-cholesterol (negative risk factor for CHD) HDL-cholesterol is affected by a number of factors, e.g. smoking, exercise, hormones, sex and age. Performed By: #### L 501.9520, L500.4100, L100.0100, L500.4050, L506.1001, L506.0400 #### [facility] [address] [place], [address] Cholesterol in LDL [Mass/Vol] 91 mg/dL Normal [facility] Comment on above: Result Comment: Bord msznjk=682-485 mg/dL Higher Vhsl=453 mg/dL or greater Performed By: #### L 501.9520, L500.4100, L100.0100, L500.4050, L506.1001, L506.0400 #### [facility] [address] [place], [address] Cholesterol in VLDL [Mass/Vol] 22 mg/dL Normal 5-40 [facility] Comment on above: Performed By: #### L 501.9520, L500.4100, L100.0100, L500.4050, L506.1001, L506.0400 #### [facility] [address] [place], [address] Triglyceride [Mass/Vol] 111 mg/dL Normal [facility] Comment on above: Result Comment: The drugs N-Acetylcysteine and Metamizole may falsely depress this assay. Normal range: <150 mg/dL Borderline High: 150-199 mg/dL High: 200-499 mg/dL Very High: >500 mg/dL Performed By: #### L 501.9520, L500.4100, L100.0100, L500.4050, L506.1001, L506.0400 #### [facility] [address] [place], [address] Lymphocytes Auto (Unsp spec) [#/Vol]Ordered By: Mario Beck on 05-13-2024 Lymphocytes (Bld) [#/Vol] 1.51 10*3/uL 0.83-4.51 [facility] Lymphocytes/100 WBC Auto (Un sp spec)Ordered By: Mario Beck on 05-13-2024 Lymphocytes/100 WBC (Bld) 33.3 % 19-41 [facility] MCV (mean corpuscular volume ) determinationOrdered By: Mario Beck on 05-13-2024 MCV (RBC) [Entitic vol] 88.9 fL 81-99 [facility] Mean corpuscular hemoglobin (MCH) determinationOrdered By: Mario Beck on 05-13-2024 MCH (RBC) [Entitic mass] 29.6 pg 27.0-32.0 [facility] Mean corpuscular hemoglobin concentration (MCHC) determinationOrdered By: Mario Beck on 05-13-2024 MCHC (RBC) [Mass/Vol] 33.3 g/dL 32-36 [facility] Mean platelet volume determi nationOrdered By: Mario Beck on 05-13-2024 Platelet mean volume (Bld) [Entitic vol] 11.1 fL 6.2-12.0 [facility] Monocyte percentageOrdered B y: Mario Beck on 05-13-2024 Monocytes/100 WBC (Bld) 8.8 % 0-10 [facility] Neutrophil percentageOrdered By: Mario Beck on 05-13-2024 Neutrophils/100 WBC (Bld) 54.4 % 47-70 [facility] Nucleated red blood cell per centageOrdered By: Mario Beck on 05-13-2024 Nucleated RBC/100 WBC (Bld) [Ratio] 0 % 0-5 [facility] Platelet countOrdered By: Alejandro Beck on 05-13-2024 Platelets (Bld) [#/Vol] 153 10*3/uL 150-450 [facility] Potassium (Unsp spec) [Mass/ Vol]Ordered By: Mario Beck on 05-13-2024 Potassium [Moles/Vol] 3.8 mmol/L 3.3-5.1 [facility] RBC Auto (Bld) [#/Vol]Ordere d By: Mario Beck on 05-13-2024 RBC (Bld) [#/Vol] 4.50 10*6/uL 4.2-5.4 [facility] Screening total cholesterol/ high density lipoprotein (HDL) cholesterol ratioOrdered By: Mario Beck on 05-13-2024 Cholesterol.total/Choles terol in HDL [Mass ratio] 2.89 {ratio} [facility] Serum creatinine measurement (mass/volume)Ordered By: Mario Beck on 05-13-2024 Creatinine [Mass/Vol] 0.80 mg/dL 0.70-1.20 [facility] Serum globulin measurementOr dered By: Mario Beck on 05-13-2024 Globulin (S) [Mass/Vol] 2.5 g/dL 2.2-4.2 [facility] Serum glucose measurement (m ass/volume)Ordered By: Mario Beck on 05-13-2024 Glucose [Mass/Vol] 97 mg/dL 70-99 [facility] Serum or plasma alanine key otransferase (ALT) measurementOrdered By: Mario Beck on 05-13-2024 ALT [Catalytic activity/Vol] 11 U/L <35 [facility] Serum or plasma albumin santhosh urement (mass/volume)Ordered By: Mario Beck on 05-13-2024 Albumin [Mass/Vol] 4.1 g/dL 3.4-4.8 [facility] Serum or plasma albumin/glob ulin mass ratioOrdered By: Mario Beck on 05-13-2024 Albumin/Globulin [Mass ratio] 1.7 {ratio} 0.9-2.4 [facility] Serum or plasma alkaline farhan sphatase measurementOrdered By: Mario Beck 05-13-2024 ALP [Catalytic activity/Vol] 79 U/L 35-104 [facility] Serum or plasma calcium santhosh urement (mass/volume)Ordered By: Mario Beck 05-13-2024 Calcium [Mass/Vol] 9.3 mg/dL 7.6-11.0 [facility] Serum or plasma cholesterol in HDL measurement (mass/volume)Ordered By: Mario Beck on 05-13-2024 Cholesterol in HDL [Mass/Vol] 60 mg/dL >40 [facility] Comment on above: National Cholesterol Education Program (NCEP) guidelines:<40 mg/dL: Low HDL-cholesterol (major risk factor for CHD)>= 60 mg/dL: High HDL-cholesterol (negative risk factor for CHD)HDL-cholesterol is affected by a number of factors, e.g. smoking, exercise, hormones, sex and age. Serum or plasma cholesterol measurement (mass/volume)Ordered By: Mario Beck on 05-13-2024 Cholesterol [Mass/Vol] 173 mg/dL <201 [facility] Comment on above: Cholesterol level, D esirable <200 mg/dLBorderline high cholesterol 200-239 mg/dLHigh cholesterol >=240 mg/dLRecommendations of the NCEP Adult Treatment Panel for the following risk-cutoff thresholds for the [place] population. Serum or plasma urea nitroge n measurement (mass/volume)Ordered By: Mario Beck on 05-13-2024 Urea nitrogen [Mass/Vol] 14 mg/dL 4-19 [facility] Sodium levelOrdered By: Mario Beck on 05-13-2024 Sodium [Moles/Vol] 142 mmol/L 133-145 [facility] T4 Free Directon 05-13-2024 T4 FREE DIRECT 1.20 ng/dL Normal 0.76-1.46 [facility] Comment on above: Performed By: #### L 501.9520, L500.4100, L100.0100, L500.4050, L506.1001, L506.0400 #### [facility] [address] [place], [address] T4 freeOrdered By: Mario Beck on 05-13-2024 Free T4 [Mass/Vol] 1.20 ng/dL 0.76-1.46 [facility] TSH DL <= 0.005 mIU/L QnOrde red By: Mario Beck on 05-13-2024 Thyroid Stimulating Hormone (TSH) 0.910 uIU/mL 0.300-4.200 [facility] Thyroid Stim Hormone (TSH)on 05-13-2024 TSH 0.910 uIU/mL Normal 0.300-4.200 [facility] Comment on above: Performed By: #### L 501.9520, L500.4100, L100.0100, L500.4050, L506.1001, L506.0400 #### [facility] [address] [place], [address] Total proteinOrdered By: Omid Beck on 05-13-2024 Protein [Mass/Vol] 6.6 g/dL 5.9-8.4 [facility] Triglycerides measurementOrd ered By: Mario Beck on 05-13-2024 Triglyceride [Mass/Vol] 111 mg/dL <199 [facility] Comment on above: The drugs N-Acetylcy steine and Metamizole may falsely depress this assay. Normal range: <150 mg/dLBorderline High: 150-199 mg/dLHigh: 200-499 mg/dLVery High: >500 mg/dL Vitamin D, 25-hydroxyOrdered By: Mario Beck on 05-13-2024 Vitamin D 25-Hydroxy 41.5 ng/mL 30-100 [facility] Comment on above: Vitamin D StatusDefi ciency: <20 ng/mL (50nmol/L)Insufficiency: 20-30 ng/mL (50-75 nmol/L)Sufficiency: 30-100 ng/mL (75-250 nmol/L)Toxicity: >100 ng/mL (>250 nmol/L) Vitamin D,25 Hydroxyon 05-13 Vitamin D 25-OH 41.5 ng/mL Normal 30-100 [facility] Comment on above: Result Comment: Samantha min D Status Deficiency: <20 ng/mL (50nmol/L) Insufficiency: 20-30 ng/mL (50-75 nmol/L) Sufficiency: 30-100 ng/mL (75-250 nmol/L) Toxicity: >100 ng/mL (>250 nmol/L) Performed By: #### L 501.9520, L500.4100, L100.0100, L500.4050, L506.1001, L506.0400 #### [facility] [address] 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 Hannah is a 63 year old who presents for an annual gynecologic exam without complaints. Patient discontinued taking Celexa due to unable to get refills from PCP. She still having some anxiety at times due to taking care of mother with dementia. She is wondering if there is anything else besides going back on the Celexa that she could do. Postmenopausal: Yes since age HRT use: No. Last Pap: 07/03/2021 normal HPV: 06/28/2021 negative History of abnormal pap: No Last mammogram: 2022 normal, 2023 results pending with visit. History of abnormal mammogram: Yes Sexually active: sometimes OB History T2 L2 SAB0 IAB0 Ectopic0 Multiple0 Live Births0 Validation Intern History LMP: 08/21/2010, Ablation Age at Menarche: Age at First : Age at Menopause: Validation Intern History Comments: Sexual Activity: Yes; Male; novasure Contraception: Tubal Ligation PAST MEDICAL HISTORY Diagnosis Date Acute appendicitis 08/08/2016 Chronic idiopathic thrombocytopenia ([facility]) 09/20/2012 Chronic ITP (idiopathic thrombocytopenia) ([facility]) managed by Dr. Naranjo (clinical diagnosis 08/2010) Chronic rhinitis 02/25/2007 Grave's disease treated with radioactive iodine Hypothyroidism Menorrhagia Other and unspecified hyperlipidemia Plantar fasciitis, bilateral left worse than right Sacroiliitis, not elsewhere classified ([facility]) 11/13/2006 Sialoadenitis 11/02/2007 Ventral hernia without obstruction or gangrene 03/05/2018 Vitamin D deficiency PAST SURGICAL HISTORY Procedure Laterality Date CHOLECYSTECTOMY 02/08/2018 CYSTOURETHROSCOPY 07/03/1998 Cystoscopy, right ureteroscopy, stone removal, right ureteral stent insertion HERNIA REPAIR HX 02/08/2018 LAPAROSCOPIC APPENDECTOMY 2016 LIG/TRNSXJ FLP TUBE ABDL/VAG APPR UNI/BI 07/02/1995 Laparoscopic NOVASURE 10/01/2010 TUMOR REMOVAL (SPECIFY LOCATION) HX Left 11/2017 FAMILY HISTORY Problem Relation Age of Onset other (Hypercholesterolemia) Mother Heart Father ME at 37; at 52 Hypertension Father Genetic Paternal Grandfather Heart Hypertension Sister Kidney Disease Sister SOCIAL HISTORY Social History Tobacco Use Smoking status: Never Smokeless tobacco: Never Vaping Use Vaping status: Never Used Substance Use Topics Alcohol use: Yes Comment: socially Drug use: No REVIEW OF SYSTEMS Abdomen: No abdominal pain, nausea, vomiting, diarrhea, or constipation. No bloating, early satiety, indigestion, or increased flatulence. Bladder: No dysuria, gross hematuria, urinary frequency, urinary urgency, or incontinence Breast: No breast lumps, nipple d/c, overlying skin changes, redness or skin retraction Allergies and current medication updated:Yes SENSITIVE EXAM: The sensitive examination was discussed with the Patient or Patient's Authorized Text Transcriber. As applicable, any other physician, advance practice provider, medical student, or other health professional student that will be observing or involved in the sensitive examination for educational or training purposes was discussed with the Patient or Authorized Text Transcriber. The Patient or Authorized Text Transcriber has agreed to proceed with the sensitive examination. (Sensitive examination includes inspection and/or palpation of the breasts, pelvis, prostate and anorectal regions). EXAM: LMP 08/21/2010 GENERAL: pleasant, female in no apparent distress HEENT: Normocephalic, atraumatic, mucus membranes moist, and no lesions DERMATOLOGY: Normal, without lesions, non-icteric, and non-hirsute BREAST: soft, non-tender, symmetric, no dominant mass, normal nipple-areolar complex, no lymphadenopathy, and no nipple discharge CHEST: Normal inspiratory effort ABDOMEN: soft, non-tender, and no masses PELVIC: external genitalia normal, normal Bartholin's glands, urethra, [place]'s glands, no vulvar lesions, no cervical lesions, physiologic discharge present, normal appearing perineal body and perianal region BIMANUAL: uterus normal size, shape and consistency, no adnexal masses, and non-tender RECTOVAGINAL: deferred. NEURO: alert and oriented x3,exam grossly non-focal EXTREMITIES: normal ASSESSMENT/PLAN: 1) Health maintenance: Pap/HPV up to date. Mammogram ordered Mammogram up to date Nutrition, exercise and routine health maintenance exams reviewed. Calcium/Vitamin D supplementation information provided. Colon cancer screening: up to date with screening- Cologuard in 2021 BMD: up to date - 2023 by endoc (more content not included)... Normal [facility] SYDNEE SCREENING W TOMOon 12-16 SYDNEE SCREENING W FRENCH * * *Final Report* * * DATE OF EXAM: Dec 17 2023 1:29PM [id number] - SYDNEE SCREENING W FRENCH / PROCEDURE REASON: Encounter for screening mammogram for breast cancer * * * * Physician Interpretation * * * * RESULT: [place] [address] HISTORY: Patient is 63 years old and is seen for screening and is asymptomatic in both breasts. Patient states no personal history of breast cancer. Patient states no personal history of other cancers. COMPARISON STUDIES: The present examination has been compared to prior imaging studies dated 02/03/2017 (mammogram), 01/15/2018 (mammogram), 10/21/2019 (mammogram), 11/09/2019 (mammogram), 11/30/2020 (mammogram) and 03/03/2022 (mammogram). MAMMOGRAM TECHNIQUE: The study was acquired using full field digital technology and interpreted from soft copy. Digital Breast Tomosynthesis (DBT) images were obtained and used to assist in the interpretation of this examination. Computer-aided detection was utilized by the radiologist in the interpretation of this examination. MAMMOGRAM FINDINGS: The breasts are heterogeneously dense, which may obscure small masses. No suspicious masses, calcifications or other abnormalities are seen in either breast. There are no significant changes from the prior study. IMPRESSION: There is no mammographic evidence of malignancy in either breast. Routine screening mammogram is recommended. Annual mammogram will be due in 1 year. BI-RADS Category 1: Negative RISK: Based on the Tyrer-Cuzick (TC) risk assessment model, this patient has a 4.8% lifetime risk of developing breast cancer, meaning they are at average risk for developing breast cancer. However, this is only an estimate based on available history provided on the patient's questionnaire. We encourage all patients to talk with their providers about these results, further recommendations for managing breast health, and appropriate supplemental screening options if the patient has dense breast tissue. Interpreting Radiologist: Nakul Cox M.D. Electronically signed on: 12/19/2023 Railroad Dispatcher: RAJESH Transcribe Date/Time: Dec 17 2023 1:18P Dictated by: NAKUL COX MD This examination was interpreted and the report reviewed and electronically signed by: NAKUL COX MD on Dec 19 2023 8:24AM EST [id number] Normal [facility] Dexa Bone Density Studyon Dexa Bone Density Study [facility] Imaging Services [address] [place] [id number] Dexa Bone Density Study MR#: [id number] Acct: [id number] Name: HEIDI MARAVILLA Rep #: [id number] : [id number] F 62 From: Marky hernandez MD PCP: Dr. Nury Zapata MD Status: [facility] [address] Study: Dexa Bone Density Study Date of Exam: 06/16/23 Exam# [id number] Ordering Dr: Mario Beck MD [id number] STUDY: DUAL ENERGY X-RAY ABSORPTIOMETRY / DXA REASON FOR EXAM: Female, 62 years old. Compare TECHNIQUE: Bone Mineral Density (BMD) measurements of lumbar spine and bilateral hips were obtained. COMPARISON: Comparison is made with prior study dated May 30, 2020. FINDINGS: Lumbar Spine (L1-L4): g/cm2 (0.833) / T-score (-1.9) / Z-score (-0.3) Findings are suggestive of osteopenia with a moderate fracture risk. Left Femur Total: g/cm2 (0.815) / T-score (-1.0) / Z-score (0.1) Left Femoral Neck: g/cm2 (0.709) / T-score (-1.3) / Z-score (0.2) Right Femur Total: g/cm2 (0.794) / T-score (-1.2) / Z-score (-0.1) Right Femoral Neck: g/cm2 (0.699) / T-score (-1.3) / Z-score (0.1) The T-Scores on the most recent prior examination were: Lumbar Spine (L1-L4): There has been worsening of bone density since the previous examination. Left Femur Total: which represents an improvement of 6.6%. Right Femur Total: which represents an improvement of 0.6%. BD/Dexa Bone Density Study IMPRESSION: The patient is considered osteopenic as outlined below according to World [employer]annon Organization (WHO) criteria with a moderate fracture risk. There has been improvement of bone density since the previous examination. Reference Information: The T-score is the number of standard deviations above or below the standard which is normal for young adults at their peak bone mineral density. The World Health Organization (WHO) interprets the T-scores as follows: Above -1 Normal bone density Between -1 and -2.5 Osteopenia Equal to / or below -2.5 Osteoporosis As a practical clinical guideline, osteopenia may be graded as follows: Mild -1 through -1.5 Moderate -1.6 through -2.0 Severe -2.1 through -2.4 The Z-score is the number of standard deviations above or below age-matched controls. A Z-score of less than -1.5 would be considered abnormal. References: 1. NIH Osteoporosis and Related Bone Diseases www osteo.org 2. International Society for Clinical Densitometry www iscd.org 3. National Osteoporosis Foundation www nof.org Electronically Signed: Marky Hicks MD at 10:04 EDT , CC: Dr. Nury Zapata MD; Dr. Mario Beck MD Railroad Dispatcher: Signed Normal [facility] Basophil percentageOrdered B y: Caitlin Jamison on 05-14-2023 Bilirubin [Mass/Vol] 1.00 mg/dL 0.20-1.00 [facility] Comment on above: For patients on eltr ombopag therapy, use of Dimension [place] TBIL is not recommended. Chloride [Moles/Vol] 108 mmol/L 98-107 [facility] Cholesterol [Mass/Vol] 178 mg/dL <200 [facility] Comment on above: <200 mg/dL Desirable 200-240 mg/dL Borderline >240 mg/dL High Risk Glucose [Mass/Vol] 99 mg/dL 74-106 [facility] Potassium [Moles/Vol] 4.0 mmol/L 3.5-5.1 [facility] Protein [Mass/Vol] 6.9 g/dL 6.4-8.2 [facility] Sodium [Moles/Vol] 141 mmol/L 136-145 [facility] Triglyceride [Mass/Vol] 196 mg/dL <199 [facility] Comment on above: The drugs N-Acetylcy steine and Metamizole may falsely depress this assay.Serum Triglycerides Reference Interval Normal <150 mg/dL Borderline high 150 - 199 mg/dL High 200 - 499 mg/dL Very High > or = 500 mg/dL Laboratory - Chemistry and C hemistry - challengeOrdered By: Caitlin Jamison on 05-14-2023 Albumin/Globulin [Mass ratio] 1.1 {ratio} 0.9-2.4 [facility] ALP [Catalytic activity/Vol] 80 U/L 45-117 [facility] ALT [Catalytic activity/Vol] 18 U/L 13-56 [facility] Cholesterol in HDL [Mass/Vol] 51 mg/dL >40 [facility] Comment on above: The drugs N-Acetylcy steine and Metamizole may falsely depress this assay. Reference Range HDL <40 mg/dL Low HDL Cholesterol HDL >or= 60 mg/dL High HDL Cholesterol Cholesterol in LDL [Mass/Vol] 88 mg/dL 0-130 [facility] CO2 [Moles/Vol] 29.0 mmol/L 21.0-32.0 [facility] Globulin (S) [Mass/Vol] 3.3 g/dL 2.2-4.2 [facility] Urea nitrogen/Creatinine [Mass ratio] 22.5 mg/mg 10-20 [facility] No Panel InformationOrdered By: Caitlin Jamison on 05-14-2023 Estimated GFR (MDRD) Amer 88 mL/min >60 [facility] Comment on above: GFR Calc Estimated GFR (MDRD) Non-Af Amer 73 mL/min >60 [facility] Comment on above: Non- GFR Calc Vitamin D 25-Hydroxy 33.6 ng/mL [facility] Comment on above: Vitamin D 25(OH) Sta tus Range Deficiency <20 ng/mL (50nmol/L) Insufficiency 20 - 30 ng/mL (50 - 75 nmol/L) Sufficiency 30 - 100 ng/mL (75 - 250 nmol/L) Toxicity >100 ng/mL (>250 nmol/L) VLDL Cholesterol 39 mg/dL 5-40 [facility] Serum or plasma calcium santhosh urement (mass/volume)Ordered By: Caitlin Jamison on 05-14-2023 Calcium [Mass/Vol] 8.8 mg/dL 8.5-10.1 [facility] Serum or plasma creatinine m easurement (mass/volume)Ordered By: Caitlin Jamison on 05-14-2023 Creatinine [Mass/Vol] 0.84 mg/dL 0.55-1.02 [facility] Comment on above: The validity of the calculated GFR & GFRAA in patients over 70 years has not been determined. Clinical correlation is essential. Serum or plasma thyroid stim ulating hormone (TSH) measurement (units/volume)Ordered By: Caitlin Jamison on 05-14-2023 TSH Qn 0.15 uIU/mL 0.358-3.74 [facility] Serum or plasma urea nitroge n measurement (mass/volume)Ordered By: Caitlin Jamison on 05-14-2023 Urea nitrogen [Mass/Vol] 19 mg/dL 7-18 [facility] Thin prep Papanicolaou smear with manual screeningOrdered By: Caitlin Jamison on 05-14-2023 Thin prep Papanicolaou smear with manual screening 3.6 g/dL 3.2-5.0 [facility] Thin prep Papanicolaou smear with manual screening 13 U/L 15-37 [facility] Thin prep Papanicolaou smear with manual screening 4 5-15 [facility] Thin prep Papanicolaou smear with manual screening 1.12 ng/dL 0.76-1.46 [facility] UA DIP, URINE (POC)on 2022 BILIRUBIN UA (POCT) Negative Negative [facility] CLARITY UA (POCT) Slightly Cloudy Cl [facility] COLOR UA (POCT) Yellow [facility] GLUCOSE UA (POCT) Negative Negative mg/dL [facility] Hemoglobin Ql (U) Moderate Abnormal Negative [facility] KETONE UA (POCT) Negative Negative mg/dL [facility] LEUKOCYTES UA (POCT) Negative Negative [facility] NITRITE UA (POCT) Negative Negative [facility] PH UA (POCT) 5.5 4.5 - 8.0 [facility] Protein Ql (U) Trace Abnormal Negative mg/dL [facility] SPECIFIC GRAVITY UA (POCT) 1.025 1.005 - 1.030 [facility] UROBILINOGEN UA (POCT) 0.2 E.U./dL Kym l E.U./dL [facility] Absolute lymphocyte countOrd ered By: Nima Sheehan on 07-13-2022 Lymphocytes Auto (Unsp spec) [#/Vol] 1.31 10*3/uL 0.83-4.51 [facility] Basophil percentageOrdered B y: Nima Sheehan on 07-13-2022 Basophils/100 WBC (Bld) 0.5 % 0-1 [facility] Bilirubin [Mass/Vol] 0.80 mg/dL 0.20-1.00 [facility] Comment on above: For patients on eltr ombopag therapy, use of Dimension [place] TBIL is not recommended. Chloride [Moles/Vol] 108 mmol/L 98-107 [facility] Eosinophils/100 WBC (Bld) 1.5 % 0-5 [facility] Glucose [Mass/Vol] 98 mg/dL 74-106 [facility] Neutrophils (Bld) [#/Vol] 6.1 10*3/uL 2.0-7.7 [facility] Neutrophils/100 WBC (Bld) 74.6 % 47-70 [facility] Potassium [Moles/Vol] 3.0 mmol/L 3.5-5.1 [facility] Protein [Mass/Vol] 6.2 g/dL 6.4-8.2 [facility] Sodium [Moles/Vol] 142 mmol/L 136-145 [facility] WBC (Bld) [#/Vol] 8.2 10*3/uL 4.4-11.0 [facility] Blood erythrocytes count (nu mber/volume)Ordered By: Nima Sheehan on 07-13-2022 RBC (Bld) [#/Vol] 4.57 10*6/uL 4.2-5.4 [facility] Blood hemoglobin measurement (mass/volume)Ordered By: Nima Sheehan on 07-13-2022 Hemoglobin (Bld) [Mass/Vol] 13.0 g/dL 12.0-15.0 [facility] Blood lymphocytes/100 leukoc ytesOrdered By: Nima Sheehan on 07-13-2022 Lymphocytes/100 WBC (Bld) 16.1 % 19-41 [facility] Blood monocytes/100 leukocyt esOrdered By: Nima Sheehan on 07-13-2022 Monocytes/100 WBC (Bld) 6.9 % 0-10 [facility] Blood platelet mean volumeOr dered By: Nima Sheehan on 07-13-2022 Platelet mean volume (Bld) [Entitic vol] 10.8 fL 6.2-12.0 [facility] Determination of erythrocyte mean corpuscular volume (MCV)Ordered By: Nima Sheehan on 07-13-2022 MCV (RBC) [Entitic vol] 87.7 fL 81-99 [facility] Direct bilirubinOrdered By: Nima Sheehan on 07-13-2022 Bilirubin.direct [Mass/Vol] 0.20 mg/dL 0.00-0.30 [facility] Hematocrit Auto (Bld) [Volum e fraction]Ordered By: Nima Sheehan on 07-13-2022 Hematocrit (Bld) [Volume fraction] 40.1 % 37-47 [facility] Laboratory - Chemistry and C hemistry - challengeOrdered By: Nima Sheehan on 07-13-2022 ALP [Catalytic activity/Vol] 94 U/L 45-117 [facility] ALT [Catalytic activity/Vol] 23 U/L 13-56 [facility] CO2 [Moles/Vol] 30.0 mmol/L 21.0-32.0 [facility] Globulin (S) [Mass/Vol] 3.0 g/dL 2.2-4.2 [facility] Lipase [Catalytic activity/Vol] 31 U/L 13-75 [facility] Comment on above: Please note:LIPASE r evised reference range effective 22. New Lipase methodology. Expected to produce lower values than the previous assay method. NEW Reference Range: 13 - 75 U/L Urea nitrogen/Creatinine [Mass ratio] 10.2 mg/mg 10-20 [facility] Laboratory - Hematology and Cell countsOrdered By: Nima Sheehan on 07-13-2022 Erythrocyte distribution width (RBC) [Entitic vol] 41.8 fL 35.1-43.9 [facility] Erythrocyte distribution width (RBC) [Ratio] 13.2 % 11.6-14.6 [facility] Immature granulocytes/100 WBC (Bld) 0.400 % 0.0-0.9 [facility] Comment on above: IG% - Immature Granu locytes (promyelocytes, myelocytes and metamyelocytes) > 1% indicates that a LEFT SHIFT is Present. MCH (RBC) [Entitic mass] 28.4 pg 27.0-32.0 [facility] Nucleated RBC/100 WBC (Bld) [Ratio] 0 % 0-5 [facility] MCHC Auto (RBC) [Mass/Vol]Or dered By: Nima Sheehan on 07-13-2022 MCHC (RBC) [Mass/Vol] 32.4 g/dL 32-36 [facility] No Panel InformationOrdered By: Nima Sheehan on 07-13-2022 Troponin I High Sensitivity 4 pg/mL 3.0-54.0 [facility] Comment on above: Please Note: New Isatu t Units and Gender Specific Reference Ranges. For more information see Policy Stat Procedure [place] High Sensitivity Troponin (TNIH) and attachments. Estimated Creatinine Clearance Calc 70.83 ml/min [facility] Estimated GFR (MDRD) Amer 112 mL/min >60 [facility] Comment on above: GFR Calc Estimated GFR (MDRD) Non-Af Amer 92 mL/min >60 [facility] Comment on above: Non- GFR Calc Thyroid Stimulating Hormone (TSH) 7.59 uIU/mL 0.358-3.74 [facility] Platelets bldOrdered By: Memo Sheehan on 07-13-2022 Platelets (Bld) [#/Vol] 155 10*3/uL 150-450 [facility] Serum or plasma albumin santhosh urement (mass/volume)Ordered By: Nima Sheehan on 07-13-2022 Albumin [Mass/Vol] 3.2 g/dL 3.2-5.0 [facility] Serum or plasma calcium santhosh urement (mass/volume)Ordered By: Nima Sheehan on 07-13-2022 Calcium [Mass/Vol] 8.1 mg/dL 8.5-10.1 [facility] Serum or plasma creatinine m easurement (mass/volume)Ordered By: Nima Sheehan on 07-13-2022 Creatinine [Mass/Vol] 0.69 mg/dL 0.55-1.02 [facility] Comment on above: The validity of the calculated GFR & GFRAA in patients over 70 years has not been determined. Clinical correlation is essential. Serum or plasma urea nitroge n measurement (mass/volume)Ordered By: Nima Sheehan on 07-13-2022 Urea nitrogen [Mass/Vol] 7 mg/dL 7-18 [facility] Thin prep Papanicolaou smear with manual screeningOrdered By: Nima Sheehan on 07-13-2022 Thin prep Papanicolaou smear with manual screening 20 U/L 15-37 [facility] Thin prep Papanicolaou smear with manual screening 4 5-15 [facility] Absolute lymphocyte countOrd ered By: Dr. Soto on 07-11-2022 Lymphocytes Auto (Unsp spec) [#/Vol] 1.43 10*3/uL 0.83-4.51 [facility] Basophil percentageOrdered B y: Dr. Soto on 07-11-2022 Basophils/100 WBC (Bld) 0.7 % 0-1 [facility] Bilirubin [Mass/Vol] 1.20 mg/dL 0.20-1.00 [facility] Comment on above: For patients on eltr ombopag therapy, use of Dimension [place] TBIL is not recommended. Chloride [Moles/Vol] 105 mmol/L 98-107 [facility] Eosinophils/100 WBC (Bld) 1.4 % 0-5 [facility] Glucose [Mass/Vol] 103 mg/dL 74-106 [facility] Comment on above: Fasting Glucose resu lt from 100 to 125 mg/dL suggests IMPAIRED HOMEOSTASIS per A.D.A. criteria. Neutrophils (Bld) [#/Vol] 5.4 10*3/uL 2.0-7.7 [facility] Neutrophils/100 WBC (Bld) 70.3 % 47-70 [facility] Potassium [Moles/Vol] 2.7 mmol/L 3.5-5.1 [facility] Comment on above: Critical Result(s) C alled at: 11:55:00 07/11/2022 by: Yao Neri. Alejandro Daugherty RN (ER). Results read back by same. Protein [Mass/Vol] 7.1 g/dL 6.4-8.2 [facility] Sodium [Moles/Vol] 142 mmol/L 136-145 [facility] WBC (Bld) [#/Vol] 7.7 10*3/uL 4.4-11.0 [facility] Blood erythrocytes count (nu mber/volume)Ordered By: Dr. Soto on 07-11-2022 RBC (Bld) [#/Vol] 4.91 10*6/uL 4.2-5.4 [facility] Blood hemoglobin measurement (mass/volume)Ordered By: Dr. Soto on 07-11-2022 Hemoglobin (Bld) [Mass/Vol] 14.2 g/dL 12.0-15.0 [facility] Blood lymphocytes/100 leukoc ytesOrdered By: Dr. Soto on 07-11-2022 Lymphocytes/100 WBC (Bld) 18.7 % 19-41 [facility] Blood monocytes/100 leukocyt esOrdered By: Dr. Soto on 07-11-2022 Monocytes/100 WBC (Bld) 8.4 % 0-10 [facility] Blood platelet mean volumeOr dered By: Dr. Soto on 07-11-2022 Platelet mean volume (Bld) [Entitic vol] 11.3 fL 6.2-12.0 [facility] CBC W Auto Differential pane l (Bld)on 07-11-2022 Basophils (Bld) [#/Vol] 0.04 10*3/uL <0.11 k/uL [facility] Basophils/100 WBC (Bld) 0.5 % [place] Differential cell count method Nom (Bld) Auto [facility] Eosinophils (Bld) [#/Vol] 0.14 10*3/uL <0.46 k/uL [facility] Eosinophils/100 WBC (Bld) 1.8 % [facility] Erythrocyte distribution width (RBC) [Ratio] 13.0 % 11.5 - 15.0 % [facility] Hematocrit (Bld) [Volume fraction] 39.3 % 36.0 - 46.0 % [facility] Hemoglobin (Bld) [Mass/Vol] 13.7 g/dL 11.5 - 15.5 g/dL [facility] Immature granulocytes (Bld) [#/Vol] 0.05 10*3/uL <0.10 k/uL [facility] Immature granulocytes/100 WBC (Bld) 0.6 % [facility] Lymphocytes (Bld) [#/Vol] 1.33 10*3/uL 1.00 - 4.00 k/uL [facility] Lymphocytes/100 WBC (Bld) 17.3 % [facility] MCH (RBC) [Entitic mass] 29.4 pg 26. 0 - 34.0 pg [facility] MCHC (RBC) [Mass/Vol] 34.9 g/dL 30.5 - 36.0 g/dL [facility] MCV (RBC) [Entitic vol] 84.3 fL 80.0 - 100.0 fL [facility] Monocytes (Bld) [#/Vol] 0.76 10*3/uL <0.87 k/uL [facility] Monocytes/100 [facility] (Bld) 9.9 % [facility] ([facility] [#/Vol] 5.39 10*3/uL 1.45 - 7.50 k/uL [facility] Neutrophils/100 WBC (Bld) 69.9 % [facility] Nucleated RBC (Bld) [#/Vol] <0.01 k/uL [facility] Nucleated RBC/100 WBC (Bld) [Ratio] 0.0 /100 WBC [facility] Platelet mean volume (Bld) [Entitic vol] 10.7 fL 9.0 - 12.7 fL [facility] Platelets (Bld) [#/Vol] 228 10*3/uL 150 - 400 k/uL [facility] RBC (Bld) [#/Vol] 4.66 10*6/uL 3.90 - 5.2 0 m/uL [facility] WBC (Bld) [#/Vol] 7.71 10*3/uL 3.70 - 11. 00 k/uL [facility] Comprehensive metabolic 2000 panelon 07-11-2022 Albumin [Mass/Vol] 4.1 g/dL 3.9 - 4.9 g/dL [facility] ALP [Catalytic activity/Vol] 93 U/L 34 - 123 U/L [facility] ALT [Catalytic activity/Vol] 15 U/L 7 - 38 U/L [facility] Anion gap [Moles/Vol] 8 mmol/L Low 9 - 18 mmol/L [facility] AST [Catalytic activity/Vol] 14 U/L 13 - 35 U/L [facility] Bilirubin [Mass/Vol] 1.0 mg/dL 0.2 - 1 .3 mg/dL [facility] Calcium [Mass/Vol] 8.7 mg/dL 8.5 - 10. 2 mg/dL [facility] Chloride [Moles/Vol] 101 mmol/L 97 - 10 5 mmol/L [facility] CO2 [Moles/Vol] 30 mmol/L 22 - 30 mmol/L [facility] Creatinine [Mass/Vol] 0.87 mg/dL 0.58 - 0.96 mg/dL [facility] Estimated Glomerular Filtration Rate 76 mL/min/1.73m >=60 mL/min/1.73m [facility] Glucose [Mass/Vol] 101 mg/dL High 74 - 99 mg/dL [facility] Potassium [Moles/Vol] 2.8 mmol/L Low 3.7 - 5.1 mmol/L [facility] Protein [Mass/Vol] 6.6 g/dL 6.3 - 8.0 g/dL [facility] Sodium [Moles/Vol] 139 mmol/L 136 - 144 mmol/L [facility] Urea nitrogen [Mass/Vol] 9 mg/dL 7 - 21 mg/d L [facility] Determination of erythrocyte mean corpuscular volume (MCV)Ordered By: Dr. Soto on 07-11-2022 MCV (RBC) [Entitic vol] 86.2 fL 81-99 [facility] Direct bilirubinOrdered By: Dr. Soto on 07-11-2022 Bilirubin.direct [Mass/Vol] 0.25 mg/dL 0.00-0.30 [facility] Hematocrit Auto (Bld) [Volum e fraction]Ordered By: Dr. Soto on 07-11-2022 Hematocrit (Bld) [Volume fraction] 42.3 % 37-47 [facility] Laboratory - Chemistry and C hemistry - challengeOrdered By: Dr. Soto on 07-11-2022 ALP [Catalytic activity/Vol] 95 U/L 45-117 [facility] ALT [Catalytic activity/Vol] 29 U/L 13-56 [facility] CO2 [Moles/Vol] 32.0 mmol/L 21.0-32.0 [facility] Globulin (S) [Mass/Vol] 3.4 g/dL 2.2-4.2 [facility] Lipase [Catalytic activity/Vol] 25 U/L 13-75 [facility] Comment on above: Please note:LIPASE r evised reference range effective 22. New Lipase methodology. Expected to produce lower values than the previous assay method. NEW Reference Range: 13 - 75 U/L Urea nitrogen/Creatinine [Mass ratio] 10.0 mg/mg 10-20 [facility] Laboratory - Hematology and Cell countsOrdered By: Dr. Soto on 07-11-2022 Erythrocyte distribution width (RBC) [Entitic vol] 40.2 fL 35.1-43.9 [facility] Erythrocyte distribution width (RBC) [Ratio] 13.0 % 11.6-14.6 [facility] Immature granulocytes/100 WBC (Bld) 0.500 % 0.0-0.9 [facility] Comment on above: IG% - Immature Granu locytes (promyelocytes, myelocytes and metamyelocytes) > 1% indicates that a LEFT SHIFT is Present. MCH (RBC) [Entitic mass] 28.9 pg 27.0-32.0 [facility] Nucleated RBC/100 WBC (Bld) [Ratio] 0 % 0-5 [facility] MCHC Auto (RBC) [Mass/Vol]Or dered By: Dr. Soto on 07-11-2022 MCHC (RBC) [Mass/Vol] 33.6 g/dL 32-36 [facility] No Panel InformationOrdered By: Dr. Soto on 07-11-2022 Estimated Creatinine Clearance Calc 63.77 ml/min [facility] Estimated GFR (MDRD) Amer 93 mL/min >60 [facility] Comment on above: GFR Calc Estimated GFR (MDRD) Non-Af Amer 77 mL/min >60 [facility] Comment on above: Non- GFR Calc Platelets bldOrdered By: Dr. Soto on 07-11-2022 Platelets (Bld) [#/Vol] 218 10*3/uL 150-450 [facility] [facility] Serum or plasma albumin santhosh urement (mass/volume)Ordered By: Dr. Soto on 07-11-2022 Albumin [Mass/Vol] 3.7 g/dL 3.2-5.0 [facility] Serum or plasma calcium santhosh urement (mass/volume)Ordered By: Dr. Soto on 07-11-2022 Calcium [Mass/Vol] 8.4 mg/dL 8.5-10.1 [facility] Serum or plasma creatinine m easurement (mass/volume)Ordered By: Dr. Soto on 07-11-2022 Creatinine [Mass/Vol] 0.80 mg/dL 0.55-1.02 [facility] Comment on above: The validity of the calculated GFR & GFRAA in patients over 70 years has not been determined. Clinical correlation is essential. Serum or plasma urea nitroge n measurement (mass/volume)Ordered By: Dr. Soto on 07-11-2022 Urea nitrogen [Mass/Vol] 8 mg/dL 7-18 [facility] Thin prep Papanicolaou smear with manual screeningOrdered By: Dr. Soto on 07-11-2022 Thin prep Papanicolaou smear with manual screening 19 U/L 15-37 [facility] Thin prep Papanicolaou smear with manual screening 5 5-15 [facility] Basophil percentageOrdered B y: Dr. Beck on 05-19-2022 Bilirubin [Mass/Vol] 1.00 mg/dL 0.20-1.00 [facility] Comment on above: For patients on eltr ombopag therapy, use of Dimension [place] TBIL is not recommended. Chloride [Moles/Vol] 104 mmol/L 98-107 [facility] Cholesterol [Mass/Vol] 181 mg/dL <200 [facility] Comment on above: <200 mg/dL Desirable 200-240 mg/dL Borderline >240 mg/dL High Risk Glucose [Mass/Vol] 134 mg/dL 74-106 [facility] Comment on above: Fasting Glucose resu lt greater than or equal to 126 mg/dL suggests DIABETES MELLITUS per A.D.A. criteria. Potassium [Moles/Vol] 3.4 mmol/L 3.5-5.1 [facility] Protein [Mass/Vol] 6.9 g/dL 6.4-8.2 [facility] Sodium [Moles/Vol] 137 mmol/L 136-145 [facility] Triglyceride [Mass/Vol] 234 mg/dL <199 [facility] Comment on above: The drugs N-Acetylcy steine and Metamizole may falsely depress this assay.Serum Triglycerides Reference Interval Normal <150 mg/dL Borderline high 150 - 199 mg/dL High 200 - 499 mg/dL Very High > or = 500 mg/dL Laboratory - Chemistry and C hemistry - challengeOrdered By: Dr. Beck on 05-19-2022 ALP [Catalytic activity/Vol] 82 U/L 45-117 [facility] ALT [Catalytic activity/Vol] 17 U/L 13-56 [facility] CO2 [Moles/Vol] 29.0 mmol/L 21.0-32.0 [facility] Free T4 [Mass/Vol] 0.98 ng/dL 0.76-1.46 [facility] Globulin (S) [Mass/Vol] 3.3 g/dL 2.2-4.2 [facility] Urea nitrogen/Creatinine [Mass ratio] 21.2 mg/mg 10-20 [facility] No Panel InformationOrdered By: Dr. Beck on 05-19-2022 Estimated GFR (MDRD) Amer 100 mL/min >60 [facility] Comment on above: GFR Calc Estimated GFR (MDRD) Non-Af Amer 83 mL/min >60 [facility] Comment on above: Non- GFR Calc Thyroid Stimulating Hormone (TSH) 0.27 uIU/mL 0.358-3.74 [facility] Vitamin D 25-Hydroxy 43.0 ng/mL [facility] Comment on above: Vitamin D 25(OH) Sta tus Range Deficiency <20 ng/mL (50nmol/L) Insufficiency 20 - 30 ng/mL (50 - 75 nmol/L) Sufficiency 30 - 100 ng/mL (75 - 250 nmol/L) Toxicity >100 ng/mL (>250 nmol/L) Serum or plasma albumin santhosh urement (mass/volume)Ordered By: Dr. Beck on 05-19-2022 Albumin [Mass/Vol] 3.6 g/dL 3.2-5.0 [facility] Serum or plasma albumin/glob ulin mass ratioOrdered By: Dr. Beck on 05-19-2022 Albumin/Globulin [Mass ratio] 1.1 {ratio} 0.9-2.4 [facility] Serum or plasma calcium santhosh urement (mass/volume)Ordered By: Dr. Beck on 05-19-2022 Calcium [Mass/Vol] 8.9 mg/dL 8.5-10.1 [facility] Serum or plasma cholesterol in HDL measurement (mass/volume)Ordered By: Dr. Beck on 05-19-2022 Cholesterol in HDL [Mass/Vol] 58 mg/dL >40 [facility] Comment on above: The drugs N-Acetylcy steine and Metamizole may falsely depress this assay. Reference Range HDL <40 mg/dL Low HDL Cholesterol HDL >or= 60 mg/dL High HDL Cholesterol Serum or plasma cholesterol in VLDL measurement (mass/volume)Ordered By: Dr. Beck on 05-19-2022 Cholesterol in VLDL [Mass/Vol] 47 mg/dL 5-40 [facility] Serum or plasma creatinine m easurement (mass/volume)Ordered By: Dr. Beck on 05-19-2022 Creatinine [Mass/Vol] 0.75 mg/dL 0.55-1.02 [facility] Comment on above: The validity of the calculated GFR & GFRAA in patients over 70 years has not been determined. Clinical correlation is essential. Serum or plasma low density lipoprotein (LDL) cholesterol measurement (mass/volume)Ordered By: Dr. Beck on 05-19-2022 Cholesterol in LDL [Mass/Vol] 76 mg/dL 0-130 [facility] Serum or plasma urea nitroge n measurement (mass/volume)Ordered By: Dr. Beck on 05-19-2022 Urea nitrogen [Mass/Vol] 16 mg/dL 7-18 [facility] Thin prep Papanicolaou smear with manual screeningOrdered By: Dr. Beck on 05-19-2022 Thin prep Papanicolaou smear with manual screening 16 U/L 15-37 [facility] Thin prep Papanicolaou smear with manual screening 4 5-15 [facility] Absolute lymphocyte countOrd ered By: Dr. Beck on 05-13-2022 Lymphocytes Auto (Unsp spec) [#/Vol] 1.21 10*3/uL 0.83-4.51 [facility] Basophil percentageOrdered B y: Dr. Beck on 05-13-2022 Basophils/100 WBC (Bld) 0.7 % 0-1 [facility] Eosinophils/100 WBC (Bld) 2.2 % 0-5 [facility] Neutrophils (Bld) [#/Vol] 2.5 10*3/uL 2.0-7.7 [facility] Neutrophils/100 WBC (Bld) 60.7 % 47-70 [facility] WBC (Bld) [#/Vol] 4.2 10*3/uL 4.4-11.0 [facility] Blood erythrocytes count (nu mber/volume)Ordered By: Dr. Beck on 05-13-2022 RBC (Bld) [#/Vol] 4.66 10*6/uL 4.2-5.4 [facility] Blood hemoglobin measurement (mass/volume)Ordered By: Dr. Beck on 05-13-2022 Hemoglobin (Bld) [Mass/Vol] 13.7 g/dL 12.0-15.0 [facility] Blood lymphocytes/100 leukoc ytesOrdered By: Dr. Beck on 05-13-2022 Lymphocytes/100 WBC (Bld) 29.2 % 19-41 [facility] Blood monocytes/100 leukocyt esOrdered By: Dr. Beck on 05-13-2022 Monocytes/100 WBC (Bld) 7.0 % 0-10 [facility] Blood platelet mean volumeOr dered By: Dr. Beck on 05-13-2022 Platelet mean volume (Bld) [Entitic vol] 11.7 fL 6.2-12.0 [facility] Determination of erythrocyte mean corpuscular volume (MCV)Ordered By: Dr. Beck on 05-13-2022 MCV (RBC) [Entitic vol] 88.6 fL 81-99 [facility] Hematocrit Auto (Bld) [Volum e fraction]Ordered By: Dr. Beck on 05-13-2022 Hematocrit (Bld) [Volume fraction] 41.3 % 37-47 [facility] Laboratory - Hematology and Cell countsOrdered By: Dr. Beck on 05-13-2022 Erythrocyte distribution width (RBC) [Entitic vol] 41.0 fL 35.1-43.9 [facility] Erythrocyte distribution width (RBC) [Ratio] 12.5 % 11.6-14.6 [facility] Immature granulocytes/100 WBC (Bld) 0.200 % 0.0-0.9 [facility] Comment on above: IG% - Immature Granu locytes (promyelocytes, myelocytes and metamyelocytes) > 1% indicates that a LEFT SHIFT is Present. MCH (RBC) [Entitic mass] 29.4 pg 27.0-32.0 [facility] Nucleated RBC/100 WBC (Bld) [Ratio] 0 % 0-5 [facility] MCHC Auto (RBC) [Mass/Vol]Or dered By: Dr. Beck on 05-13-2022 MCHC (RBC) [Mass/Vol] 33.2 g/dL 32-36 [facility] Platelets bldOrdered By: Dr. Beck on 05-13-2022 Platelets (Bld) [#/Vol] 167 10*3/uL 150-450 [facility] SYDNEE SCREENING [place] 03-03 [facility] Absolute lymphocyte counton 05-20-2021 Lymphocytes Auto (Unsp spec) [#/Vol] 1.34 10*3/uL 0.83-4.51 [facility] Work Phone: Basophil percentageon 2021 Basophils/100 WBC (Bld) 0.5 % 0-1 [facility] Work Phone: Bilirubin [Mass/Vol] 1.50 mg/dL 0.20-1.00 [facility] Work Phone: Comment on above: For patients on eltr ombopag therapy, use of Dimension [place] TBIL is not recommended. Chloride [Moles/Vol] 106 mmol/L 98-107 [facility] Work Phone: Cholesterol [Mass/Vol] 187 mg/dL <200 [facility] Work Phone: Comment on above: <200 mg/dL Desirable 200-240 mg/dL Borderline >240 mg/dL High Risk Eosinophils/100 WBC (Bld) 2.0 % 0-5 [facility] Work Phone: Glucose [Mass/Vol] 94 mg/dL 74-106 [facility] Work Phone: Neutrophils (Bld) [#/Vol] 2.2 10*3/uL 2.0-7.7 [facility] Work Phone: Neutrophils/100 WBC (Bld) 55.1 % 47-70 [facility] Work Phone: Potassium [Moles/Vol] 3.8 mmol/L 3.5-5.1 [facility] Work Phone: Protein [Mass/Vol] 7.1 g/dL 6.4-8.2 [facility] Work Phone: Sodium [Moles/Vol] 140 mmol/L 136-145 [facility] Work Phone: [phone] Triglyceride [Mass/Vol] 96 mg/dL [facility] Work Phone: [phone] Comment on above: The drugs N-Acetylcy steine and Metamizole may falsely depress this assay.Serum Triglycerides Reference Interval Normal <150 mg/dL Borderline high 150 - 199 mg/dL High 200 - 499 mg/dL Very High > or = 500 mg/dL WBC (Bld) [#/Vol] 3.9 10*3/uL 4.4-11.0 [facility] Work Phone: [phone] Blood erythrocytes count (nu mber/volume)on 05-20-2021 RBC (Bld) [#/Vol] 4.60 10*6/uL 4.2-5.4 [facility] Work Phone: [phone] Blood hemoglobin measurement (mass/volume)on 05-20-2021 Hemoglobin (Bld) [Mass/Vol] 13.4 g/dL 12.0-15.0 [facility] Work Phone: [phone] Blood lymphocytes/100 leukoc yteson 05-20-2021 Lymphocytes/100 WBC (Bld) 34.0 % 19-41 [facility] Work Phone: [phone] Blood monocytes/100 leukocyt eson 05-20-2021 Monocytes/100 WBC (Bld) 7.9 % 0-10 [facility] Work Phone: [phone] Blood platelet mean volumeon 05-20-2021 Platelet mean volume (Bld) [Entitic vol] 12.3 fL 6.2-12.0 [facility] Work Phone: [phone] Determination of erythrocyte mean corpuscular volume (MCV)on 05-20-2021 MCV (RBC) [Entitic vol] 87.2 fL 81-99 [facility] Work Phone: [phone] Hematocrit Auto (Bld) [Volum e fraction]on 05-20-2021 Hematocrit (Bld) [Volume fraction] 40.1 % 37-47 [facility] Work Phone: [phone] Laboratory - Chemistry and C hemistry - challengeon 05-20-2021 ALP [Catalytic activity/Vol] 77 U/L 45-117 [facility] Work Phone: [phone] ALT [Catalytic activity/Vol] 17 U/L 13-56 [facility] Work Phone: [phone] CO2 [Moles/Vol] 30.0 mmol/L 21.0-32.0 [facility] Work Phone: [phone] Free T4 [Mass/Vol] 1.24 ng/dL 0.76-1.46 [facility] Work Phone: [phone] Globulin (S) [Mass/Vol] 3.4 g/dL 2.2-4.2 [facility] Work Phone: [phone] Urea nitrogen/Creatinine [Mass ratio] 24.4 mg/mg 10-20 [facility] Work Phone: [phone] Laboratory - Hematology and Cell countson 05-20-2021 Erythrocyte distribution width (RBC) [Entitic vol] 39.8 fL 35.1-43.9 [facility] Work Phone: [phone] Erythrocyte distribution width (RBC) [Ratio] 12.5 % 11.6-14.6 [facility] Work Phone: [phone] Immature granulocytes/100 WBC (Bld) 0.500 % 0.0-0.9 [facility] Work Phone: [phone] Comment on above: IG% - Immature Granu locytes (promyelocytes, myelocytes and metamyelocytes) > 1% indicates that a LEFT SHIFT is Present. MCH (RBC) [Entitic mass] 29.1 pg 27.0-32.0 [facility] Work Phone: [phone] Nucleated RBC/100 WBC (Bld) [Ratio] 0 % 0-5 [facility] Work Phone: [phone] MCHC Auto (RBC) [Mass/Vol]on 05-20-2021 MCHC (RBC) [Mass/Vol] 33.4 g/dL 32-36 [facility] Work Phone: No Panel Informationon 05-20 Estimated GFR (MDRD) Amer 110 mL/min >60 [facility] Work Phone: Comment on above: GFR Calc Estimated GFR (MDRD) Non-Af Amer 91 mL/min >60 [facility] Work Phone: Comment on above: Non- GFR Calc Thyroid Stimulating Hormone (TSH) 0.15 uIU/mL 0.358-3.74 [facility] Work Phone: Vitamin D 25-Hydroxy 30.3 ng/mL [facility] Work Phone: Comment on above: Vitamin D 25(OH) Sta tus Range Deficiency <20 ng/mL (50nmol/L) Insufficiency 20 - 30 ng/mL (50 - 75 nmol/L) Sufficiency 30 - 100 ng/mL (75 - 250 nmol/L) Toxicity >100 ng/mL (>250 nmol/L) Platelets bldon 05-20-2021 Platelets (Bld) [#/Vol] 146 10*3/uL 150-450 [facility] Work Phone: Serum or plasma albumin santhosh urement (mass/volume)on 05-20-2021 Albumin [Mass/Vol] 3.7 g/dL 3.2-5.0 [facility] Work Phone: [phone] Serum or plasma albumin/glob ulin mass ratioon 05-20-2021 Albumin/Globulin [Mass ratio] 1.1 {ratio} 0.9-2.4 [facility] Work Phone: [phone] Serum or plasma calcium santhosh urement (mass/volume)on 05-20-2021 Calcium [Mass/Vol] 8.8 mg/dL 8.5-10.1 [facility] Work Phone: [phone] Serum or plasma cholesterol in HDL measurement (mass/volume)on 05-20-2021 Cholesterol in HDL [Mass/Vol] 57 mg/dL [facility] Work Phone: Comment on above: The drugs N-Acetylcy steine and Metamizole may falsely depress this assay. Reference Range HDL <40 mg/dL Low HDL Cholesterol HDL >or= 60 mg/dL High HDL Cholesterol Serum or plasma cholesterol in VLDL measurement (mass/volume)on 05-20-2021 Cholesterol in VLDL [Mass/Vol] 19 mg/dL 5-40 [facility] Work Phone: Serum or plasma creatinine m easurement (mass/volume)on 05-20-2021 Creatinine [Mass/Vol] 0.70 mg/dL 0.55-1.02 [facility] Work Phone: Comment on above: The validity of the calculated GFR & GFRAA in patients over 70 years has not been determined. Clinical correlation is essential. Serum or plasma low density lipoprotein (LDL) cholesterol measurement (mass/volume)on 05-20-2021 Cholesterol in LDL [Mass/Vol] 111 mg/dL 0-130 [facility] Work Phone: Serum or plasma urea nitroge n measurement (mass/volume)on 05-20-2021 Urea nitrogen [Mass/Vol] 17 mg/dL 7-18 [facility] Work Phone: Thin prep Papanicolaou smear with manual screeningon 05-20-2021 Thin prep Papanicolaou smear with manual screening 11 U/L 15-37 [facility] Work Phone: Thin prep Papanicolaou smear with manual screening 4 5-15 [facility] Work Phone: XR HAND GENERAL 3V PA/LAT/OB L RIGHTon 05-01-2021 [facility] XR Hand - right PA and Later al and Obliqueon 05-01-2021 IMPRESSION: Punctate calcific density at the base of the ulnar aspect of the second middle phalanx which likely reflects a small marginal osteophyte though correlation with physical examination to exclude point tenderness which could indicate a tiny chip fracture is advised. Railroad Dispatcher: [email or web address] Transcribe Date/Time: May 01 2021 8:21A Dictated by : SHAJI HARDIN MD This examination was interpreted and the report reviewed and electronically signed by: SHAJI HARDIN MD on May 01 2021 8:25AM [facility] DIVISION OF RADIOLOGY * * *Final Report* * * DATE OF EXAM: May 01 2021 8:15AM WOX [id number] - XR HAND 3V PA/LAT/OBL RT / PROCEDURE REASON: Hand injuries, right, initial encounter * * * * Physician Interpretation * * * * CLINICAL INDICATION: Hand injury TECHNIQUE: 3 view radiographic study of the right hand COMPARISON: None FINDINGS: There is a punctate calcific density at the base of the ulnar aspect of the second middle phalanx which likely reflects a small marginal osteophyte though correlation with physical examination to exclude point tenderness which could indicate a tiny chip fracture is advised. No additional osseous injury identified. DIVISION OF RADIOLOGY Provider, [facility] - 05/01/2021 * * *Final Report* * * DATE OF EXAM: May 01 2021 8:15AM WOX 5346 - XR HAND 3V PA/LAT/OBL RT / PROCEDURE REASON: Hand injuries, right, initial encounter * * * * Physician Interpretation * * * * CLINICAL INDICATION: Hand injury TECHNIQUE: 3 view radiographic study of the right hand COMPARISON: None FINDINGS: There is a punctate calcific density at the base of the ulnar aspect of the second middle phalanx which likely reflects a small marginal osteophyte though correlation with physical examination to exclude point tenderness which could indicate a tiny chip fracture is advised. No additional osseous injury identified. IMPRESSION IMPRESSION: Punctate calcific density at the base of the ulnar aspect of the second middle phalanx which likely reflects a small marginal osteophyte though correlation with physical examination to exclude point tenderness which could indicate a tiny chip fracture is advised. Railroad Dispatcher: EVI Transcribe Date/Time: May 01 2021 8:21A Dictated by : SHAJI HARDIN MD This examination was interpreted and the report reviewed and electronically signed by: SHAJI HARDIN MD on May 01 2021 8:25AM EST [facility] Radiology Study observation (narrative) Katrin Aldana XR Hand - right PA and Later al and ObliqueOrdered By: [facility] Provider on 05-01-2021 [facility] BD DXA - AXIAL SKELETONon BD DXA - AXIAL SKELETON * * *Final Repor t* * *DATE OF EXAM: Feb 03 2017 8:40AM AJAY 0804 - BD DXA - AXIAL SKELETON / REASON: Z78.0-Asymptomatic menopausal state * * * * Physician Interpretation * * * * EXAMINATION: Bone densitometry: 02/03/2017 8:40 AMHISTORY: 56-year-old female with requisition stating menopausal state.COMPARISON: None. Baseline exam.LUMBAR SPINE: The bone mineral density from L1 through L4 is 1.058 grams per square centimeter which yields a T-score of -1.0.LEFT HIP: The bone mineral density of the total region of the left hip is 0.872 grams per square centimeter which yields a T-score of -1.1.LEFT FEMORAL NECK: The bone mineral density of the left femoral neck is 0.864 grams per square centimeter which yields a T-score of -1.3.IMPRESSION: Osteopenia.[facility] ORG. CLASSIFICATION OF BONE MASSCLASSIFICATION T-SCORENormal Greater than -1Low Bone Mass Between -1 and -2.5(Osteopenia)Osteop orosis Less than or equal to -2.5Transcriptionist: EVI Transcribe Date/Time: Feb 03 2017 8:45ADictated by : SINCERE PAVON MDThis examination was interpreted and the report reviewed and electronically signed by: SINCERE PAVON MD on Feb 03 2017 8:47AM [id number] Normal [facility] Vital Signs Date Time Vital Sign Value Performing Clinician Facility 05-17-2024 15:57-0400 Body height 160.[address] Nury Zapata MD Work Phone: [facility] 05-17-2024 15:57-0400 Body mass index (BMI) [Ratio] 25.2 kg/m2 Dr. Nury Zapata MD Work Phone: [facility] 05-17-2024 15:57-0400 Body weight 64.[address] Nury Zapata MD Work Phone: [facility] 05-17-2024 15:57-0400 Diastolic blood pressure 76 mm[Hg] Dr. Nury Zapata MD Work Phone: [facility] 05-17-2024 15:57-0400 Heart rate 68 /min Dr. Nury Zapata MD Work Phone: [facility] 05-17-2024 15:57-0400 SaO2% (BldA) [Mass fraction] 96 % Dr. Nury Zapata MD Work Phone: [facility] 05-17-2024 15:57-0400 Systolic blood pressure 125 mm[Hg] Dr. Nury Zapata MD Work Phone: [facility] 12-17-2023 13:35-0500 Body height 160 cm Laurel [place] [employer] ECOLOGIST Work Phone: [facility] 12-17-2023 13:35-0500 Body mass index (BMI) [Ratio] 25.23 kg/m2 Laurel [place] [employer] RESEARCH ECOLOGIST Work Phone: [facility] 12-17-2023 13:35-0500 Body weight 64.59 kg Laurel Kris [employer] RESEARCH ECOLOGIST Work Phone: [facility] 12-17-2023 13:35-0500 Diastolic blood pressure 68 mm[Hg] Laurel Kris [employer] RESEARCH ECOLOGIST Work Phone: [facility] 12-17-2023 13:35-0500 Systolic blood pressure 122 mm[Hg] Laurel Kris [employer] RESEARCH ECOLOGIST Work Phone: [facility] 10-12-2022 09:03-0400 Body temperature 98.4 [degF] Kelli Fair [employer] RESEARCH ECOLOGIST Work Phone: [facility] 10-12-2022 09:03-0400 Body weight 66.5 kg Kelli Fair [employer] RESEARCH ECOLOGIST Work Phone: [facility] 10-12-2022 09:03-0400 Diastolic blood pressure 72 mm[Hg] Kelli Fair [employer] RESEARCH ECOLOGIST Work Phone: [facility] 10-12-2022 09:03-0400 Heart rate 60 /min Kelli Fair [employer] RESEARCH ECOLOGIST Work Phone: [facility] 10-12-2022 09:03-0400 Respiratory rate 18 /min Kelli Fair [employer] RESEARCH ECOLOGIST Work Phone: [facility] 10-12-2022 09:03-0400 SaO2% (BldA) [Mass fraction] 98 % Kelli Fair [employer] RESEARCH ECOLOGIST Work Phone: [facility] 10-12-2022 09:03-0400 Systolic blood pressure 132 mm[Hg] Kelli Fair [employer] RESEARCH ECOLOGIST Work Phone: [facility] 07-14-2022 13:54-0400 Body temperature 100.51 [degF] Nury Zapata MD Work Phone: [facility] 07-14-2022 13:54-0400 Body weight 67.59 kg Nury Zapata MD Work Phone: [facility] 07-14-2022 13:54-0400 Diastolic blood pressure 62 mm[Hg] Nury Zapata MD Work Phone: [facility] 07-14-2022 13:54-0400 Heart rate 81 /min Nury Zapata MD Work Phone: [facility] 07-14-2022 13:54-0400 Respiratory rate 18 /min Nury Zapata MD Work Phone: [facility] 07-14-2022 13:54-0400 SaO2% (BldA) [Mass fraction] 96 % Nury Zapata MD Work Phone: [facility] 07-14-2022 13:54-0400 Systolic blood pressure 110 mm[Hg] Nury Zapata MD Work Phone: [facility] 07-13-2022 07:10-0400 Diastolic blood pressure 56 mm[Hg] Dr. Nury Zapata Work Phone: [facility] 07-13-2022 07:10-0400 Heart rate 72 /min Dr. Nury Zapata Work Phone: [facility] 07-13-2022 07:10-0400 Respiratory rate 16 /min Dr. Nury Zapata Work Phone: [phone] [place] [address] 07-13-2022 07:10-0400 SaO2% (BldA) [Mass fraction] 94 % Dr. Nury Zapata Work Phone: [phone] [place] [address] 07-13-2022 07:10-0400 Systolic blood pressure 108 mm[Hg] Dr. Nury Zapata Work Phone: [phone] [address] [place] [address] 07-13-2022 04:03-0400 Body height 160.[address] Nury Zapata Work Phone: 1(621)[phone] [place] [address] 07-13-2022 04:03-0400 Body mass index (BMI) [Ratio] 27.1 kg/m2 Dr. Nury Zapata Work Phone: 4(042)[phone] [place] [address] 07-13-2022 04:03-0400 Body temperature 98.4 [degF] Dr. Nury Zapata Work Phone: 7(505)979-598695 [place] [address] 07-13-2022 04:03-0400 Body weight 69.[address] Nury Zapata Work Phone: 9(104)[phone] [place] [address] 07-11-2022 10:19-0400 Body height 162.[address] Nury Zapata Work Phone: 0(059)[phone] [place] [address] 07-11-2022 10:19-0400 Body mass index (BMI) [Ratio] 25 kg/m2 Dr. Nury Zapata Work Phone: 0(622)[phone] [place] [address] 07-11-2022 10:19-0400 Body temperature 98.7 [degF] Dr. Nury Zapata Work Phone: 2(497)[phone] [place] [address] 07-11-2022 10:19-0400 Body weight 66.[address] Nury Zapata Work Phone: 8(607)[phone] [place] [address] 07-11-2022 10:19-0400 Diastolic blood pressure 71 mm[Hg] Dr. Nury Zapata Work Phone: 5(240)[phone] [place] [address] 07-11-2022 10:19-0400 Heart rate 73 /min Dr. Nury Zapata Work Phone: [facility] 07-11-2022 10:19-0400 Respiratory rate 16 /min Dr. Nury Zapata Work Phone: [facility] 07-11-2022 10:19-0400 SaO2% (BldA) [Mass fraction] 100 % Dr. Nury Zapata Work Phone: [facility] 07-11-2022 10:19-0400 Systolic blood pressure 111 mm[Hg] Dr. Nury Zapata Work Phone: [facility] 07-11-2022 07:35-0400 Body temperature 98.2 [degF] Yesenia Athy PA-C Work Phone: [facility] 07-11-2022 07:35-0400 Body weight 66.32 kg Yesenia Athy PA-C Work Phone: [facility] 07-11-2022 07:35-0400 Diastolic blood pressure 76 mm[Hg] Yesenia Athy PA-C Work Phone: [facility] 07-11-2022 07:35-0400 Heart rate 90 /min Yesenia Athy PA-C Work Phone: [facility] 07-11-2022 07:35-0400 Respiratory rate 18 /min Yesenia Athy PA-C Work Phone: [facility] 07-11-2022 07:35-0400 SaO2% (BldA) [Mass fraction] 97 % Yesenia Athy PA-C Work Phone: [facility] 07-11-2022 07:35-0400 Systolic blood pressure 126 mm[Hg] Yesenia Athy PA-C Work Phone: [facility] 05-19-2022 15:59-0400 Body height 162.[address] Nury Zapata Work Phone: [facility] 05-19-2022 15:59-0400 Body mass index (BMI) [Ratio] 26.2 kg/m2 Dr. Nury Zapata Work Phone: [facility] 05-19-2022 15:59-0400 Body temperature 99.3 [degF] Dr. Nury Zapata Work Phone: [facility] 05-19-2022 15:59-0400 Body weight 69.[address] Nury Zapata Work Phone: [facility] 05-19-2022 15:59-0400 Diastolic blood pressure 73 mm[Hg] Dr. Nury Zapata Work Phone: [facility] 05-19-2022 15:59-0400 Heart rate 63 /min Dr. Nury Zapata Work Phone: [facility] 05-19-2022 15:59-0400 Respiratory rate 18 /min Dr. Nury Zapata Work Phone: [facility] 05-19-2022 15:59-0400 SaO2% (BldA) [Mass fraction] 95 % Dr. Nury Zapata Work Phone: [facility] 05-19-2022 15:59-0400 Systolic blood pressure 116 mm[Hg] Dr. Nury Zapata Work Phone: [facility] 08-14-2021 16:31-0400 Body weight 68.95 kg Cayla Older CIGAR P[employer]ER AND GRADER.WILDLIFE BIOSTATION RESEARCH ECOLOGIST Work Phone: [facility] 08-14-2021 16:31-0400 Diastolic blood pressure 78 mm[Hg] Cayla Older CIGAR P[employer]ER AND GRADER.WILDLIFE BIOSTATION RESEARCH ECOLOGIST Work Phone: [facility] 08-14-2021 16:31-0400 Heart rate 62 /min Cayla Older CIGAR P[employer]ER AND GRADER.WILDLIFE BIOSTATION RESEARCH ECOLOGIST Work Phone: [facility] 08-14-2021 16:31-0400 Respiratory rate 16 /min Cayla Older CIGAR P[employer]ER AND GRADER.WILDLIFE BIOSTATION RESEARCH ECOLOGIST Work Phone: [facility] 08-14-2021 16:31-0400 Systolic blood pressure 126 mm[Hg] Cayla Older CIGAR PACKER AND GRADER.WILDLIFE BIOSTATION RESEARCH ECOLOGIST Work Phone: [facility] 06-25-2021 07:10-0400 Body height 160 cm Laurel Kris CIGAR P[employer]ER AND GRADER.WILDLIFE BIOSTATION RESEARCH ECOLOGIST Work Phone: [facility] 06-25-2021 07:10-0400 Body weight 69.76 kg Laurel [place] CIGAR PACKER AND GRADER.WILDLIFE BIOSTATION RESEARCH ECOLOGIST Work Phone: [facility] 06-25-2021 07:10-0400 Diastolic blood pressure 60 mm[Hg] Laurel Kris CIGAR P[employer]ER AND GRADER.WILDLIFE BIOSTATION RESEARCH ECOLOGIST Work Phone: [facility] 06-25-2021 07:10-0400 Systolic blood pressure 98 mm[Hg] Laurel [place] CIGAR PACKER AND GRADER.WILDLIFE BIOSTATION RESEARCH ECOLOGIST Work Phone: [facility] 05-20-2021 15:59-0400 Body height 162.[address] Nury Zapata Work Phone: [facility] Work Phone: 05-20-2021 15:59-0400 Body mass index (BMI) [Ratio] 26.9 kg/m2 Dr. Nury Zapata Work Phone: [facility] Work Phone: 05-20-2021 15:59-0400 Body temperature 97.1 [degF] Dr. Nury Zapata Work Phone: [facility] Work Phone: 05-20-2021 15:59-0400 Body weight 71.[address] Nury Zapata Work Phone: [facility] Work Phone: 05-20-2021 15:59-0400 Diastolic blood pressure 82 mm[Hg] Dr. Nury Zapata Work Phone: [facility] Work Phone: 05-20-2021 15:59-0400 Heart rate 62 /min Dr. Nury Zapata Work Phone: [facility] Work Phone: 05-20-2021 15:59-0400 Respiratory rate 18 /min Dr. Nury Zapata Work Phone: [facility] Work Phone: 05-20-2021 15:59-0400 SaO2% (BldA) [Mass fraction] 97 % Dr. Nury Zapata Work Phone: [facility] Work Phone: 05-20-2021 15:59-0400 Systolic blood pressure 128 mm[Hg] Dr. Nury Zapata Work Phone: [facility] Work Phone: 05-01-2021 07:44-0400 Body temperature 97.7 [degF] Mikael Beck APRN.WILDLIFE BIOSTATION RESEARCH ECOLOGIST Work Phone: [facility] 05-01-2021 07:44-0400 Body weight 71.22 kg Mikael Beck APRN.WILDLIFE BIOSTATION RESEARCH ECOLOGIST Work Phone: [facility] 05-01-2021 07:44-0400 Diastolic blood pressure 62 mm[Hg] Mikael Beck CIGAR PACKER AND GRADER.WILDLIFE BIOSTATION RESEARCH ECOLOGIST Work Phone: [facility] 05-01-2021 07:44-0400 Heart rate 74 /min Mikael Beck CIGAR PACKER AND GRADER.WILDLIFE BIOSTATION RESEARCH ECOLOGIST Work Phone: [facility] 05-01-2021 07:44-0400 Respiratory rate 16 /min Mikael Beck APRN.WILDLIFE BIOSTATION RESEARCH ECOLOGIST Work Phone: [facility] 05-01-2021 07:44-0400 SaO2% (BldA) [Mass fraction] 96 % Mikael Beck APRN.WILDLIFE BIOSTATION RESEARCH ECOLOGIST Work Phone: [facility] 05-01-2021 07:44-0400 Systolic blood pressure 112 mm[Hg] Mikael Beck CIGAR PACKER AND GRADER.WILDLIFE BIOSTATION RESEARCH ECOLOGIST Work Phone: [facility] Encounters Encounter Date Encounter Type Care Provider Facility Start: 05-17-2024 End: 05-17-[address] Mario Beck MD -[facility] Work Phone: Start: 05-17-2024 End: 05-17-2024 ambulatory Nury Zapata Facility:[facility] Start: 05-13-2024 End: 05-13-[address] Nury Zapata MD Work Phone: [facility] Work Phone: Start: 05-13-2024 End: 05-13-[address] Mario Beck MD -Laboratory Work Phone: Start: 05-13-2024 End: 05-13-2024 ambulatory Nury Zapata Facility:[facility] Start: 12-17-2023 End: 12-17-2023 Patient encounter procedure Laurel [place] WILDLIFE BIOSTATION RESEARCH ECOLOGIST Work Phone: OB/Gynecology Comment on above: Encounter for gyneco logical examination (general) (routine) without abnormal findings (Primary Dx); Encounter for screening mammogram for breast cancer; Anxiety Start: 12-17-2023 End: 12-17-2023 Patient encounter status Laurel [place] KNOWLESWILDLIFE BIOSTATION RESEARCH ECOLOGIST Work Phone: [facility] Start: 12-17-2023 End: 12-17-2023 ambulatory LAUREL PONCE Facility:[facility] Start: 12-17-2023 End: 12-17-2023 Subsequent hospital visit by physician Screen Mammo [facility] Comment on above: Encounter for screen ing mammogram for breast cancer [Z12.31] Start: 06-16-2023 End: 06-16-2023 ambulatory Nury Zapata Facility:[facility] Start: 05-14-2023 End: 05-14-2023 ambulatory [facility] Work Phone: Start: 05-14-2023 End: 05-14-2023 Patient encounter procedure [facility]Laboratory Work Phone: Start: 04-08-2023 ambulatory Nury gupta MD Work Phone: Internal Medicine [facility] [place] Start: 12-02-2022 Telephone encounter Nury oshea MD Work Phone: [facility] [place] Comment on above: Refill Request Start: 10-12-2022 End: 10-12-2022 Patient encounter procedure Kelli Fair CIGAR PACKER AND GRADER.WILDLIFE BIOSTATION RESEARCH ECOLOGIST Work Phone: [facility] Comment on above: Dysuria (Primary Dx) Start: 07-14-2022 End: 07-14-2022 Office outpatient visit 25 minutes Nury Zapata MD Work Phone: [facility] [place] Comment on above: Giardial enteritis ( Primary Dx); Hypokalemia; Anxiety; Gastroesophageal reflux disease, unspecified whether esophagitis present Start: 07-13-2022 Telephone encounter Kellibonita gipson CIGAR PACKER AND GRADER.WILDLIFE BIOSTATION RESEARCH ECOLOGIST Work Phone: [facility] Comment on above: Results Start: 07-13-2022 End: 07-13-2022 Emergency department patient [facility] Start: 07-11-2022 Telephone encounter Yesenia figueroa PA-C Work Phone: [facility] Comment on above: Results Start: 07-11-2022 End: 07-11-2022 Emergency department patient visit Dr. Nury Zapata Work Phone: [facility]-Emergency Department Start: 07-11-2022 End: 07-11-2022 Patient encounter procedure Yesenia Soliz PA-C Work Phone: [facility] Comment on above: Diarrhea, unspecifie d type (Primary Dx) Start: 05-19-2022 End: 05-19-[address] Nury Zapata Work Phone: [facility] Start: 05-19-2022 End: 05-19-[address] Nury Zapata Work Phone: [facility] Work Phone: Start: 05-19-2022 End: 05-19-[address] Nury Zapata Work Phone: [facility]Laboratory Start: 05-13-2022 End: 05-13-[address] [facility] Start: 03-04-2022 Documentation procedure Mammog flex Coordinator [facility] Start: 03-04-2022 Letter encounter Mammography Coordinator [facility] Department Start: 03-03-2022 End: 03-03-2022 Subsequent hospital visit by physician Screen Mammo [facility] Comment on above: Encounter for screen ing mammogram for breast cancer [Z12.31] Start: 08-14-2021 End: 08-14-2021 Patient encounter procedure Cayla Olson APRN.CNP Work Phone: [facility] [place] Comment on above: Mixed hyperlipidemia (Primary Dx); Postablative hypothyroidism; Anxiety disorder, unspecified type; Colon cancer screening; Chronic idiopathic thrombocytopenia (HCC) Start: 06-25-2021 End: 06-25-2021 Patient encounter procedure Laurel Ponce APRN.CNP Work Phone: OB/Gynecology Comment on above: Encounter for gyneco logical examination (general) (routine) without abnormal findings (Primary Dx); Encounter for screening for human papillomavirus (HPV); Pap smear for cervical cancer screening; Encounter for screening mammogram for breast cancer Start: 06-25-2021 End: 06-25-2021 Patient encounter status Laurel Ponce APRN.CNP Work Phone: OB/Gynecology Start: 05-20-2021 End: 05-20-[address] Nury Zapata Work Phone: [facility] Start: 05-20-2021 End: 05-20-[address] [facility] Start: 05-01-2021 End: 05-01-2021 Subsequent hospital visit by physician Xr [facility] Work Phone: Radiology Comment on above: Hand injuries, right , initial encounter [S69.91XA] Start: 05-01-2021 End: 05-01-2021 Patient encounter procedure Mikael Beck CIGAR PACKER AND GRADER.WILDLIFE BIOSTATION RESEARCH ECOLOGIST Work Phone: [facility] Comment on above: Hand injuries, right , initial encounter (Primary Dx) Start: 02-03-2017 Ambulatory [facility] Procedures Date Procedure Procedure Detail Performing Clinician Start: 10-12-2022 Urnls dip stick/tabl et rgnt auto w/o microscopy Kelli Fair CIGAR PACKER AND GRADER.WILDLIFE BIOSTATION RESEARCH ECOLOGIST Work Phone: Start: 07-13-2022 Plain chest X-ray Dr. Richmond Zapata Work Phone: Start: 03-03-2022 SYDNEE SCREENING W FRENCH Carmella Ponce CIGAR PACKER AND GRADER.WILDLIFE BIOSTATION RESEARCH ECOLOGIST Work Phone: Start: 03-03-2022 Mammography Mammograph y Coordinator Start: 06-25-2021 Adult depression screening assessment Laurel Ponce CIGAR PACKER AND GRADER.WILDLIFE BIOSTATION RESEARCH ECOLOGIST Work Phone: Start: 05-01-2021 Radex hand minimum 3 views Mikael Beck CIGAR PACKER AND GRADER.WILDLIFE BIOSTATION RESEARCH ECOLOGIST Work Phone: Start: 11-30-2020 Mammography Mikael ruiz CIGAR PACKER AND GRADER.WILDLIFE BIOSTATION RESEARCH ECOLOGIST Work Phone: Start: 01-13-2020 Lipid 1996 panel - S rachael or Plasma Screen Ws Start: 07-01-2018 Adult depression screening assessment Mikael Beck CIGAR PACKER AND GRADER.WILDLIFE BIOSTATION RESEARCH ECOLOGIST Work Phone: Plan of Treatment Date Care Activity Detail Author Start: 07-31-2035 RSV Vaccine (1 - 1-d ose 75+ series) RSV Vaccine (1 - 1-dose 75+ series) [facility] Start: 08-09-2029 Urine microalbumin profile [facility] Start: 06-25-2026 HPV TESTING HPV TESTING [facility] Start: 06-25-2026 PAP TESTING PAP TESTING [facility] Start: 06-25-2026 Screening for malign ant neoplasm of cervix [facility] Start: 07-11-2025 DIABETES SCREEN DIABETES SCREEN [facility] Start: 07-11-2025 Diabetes Screening Diabetes Screenin g [facility] Start: 01-12-2025 Lipid 1996 panel - S rachael or Plasma Lipid Screening [facility] Start: 01-12-2025 Lipid panel Lipid Screening [facility] Start: 01-12-2025 LIPID SCREEN LIPID SCREEN [facility] Start: 10-20-2024 End: 10-20-2024 Patient encounter procedure OB/Gynecology Comment on above: ANNUAL MAMMO W FRENCH Start: 09-02-2024 COLOGUARD (FIT-DNA) COLOGUARD (FIT-D NA) [facility] Start: 09-02-2024 COLORECTAL CANCER SCREENING COLORECTAL CANCER SCREENING [facility] Start: 09-02-2024 Screening for malign ant neoplasm of colon [facility] Start: 12-17-2023 End: 12-17-2023 Patient encounter procedure Mammogram Comment on above: Encounter for screen ing mammogram for breast cancer [Z12.31] Annual Start: 10-11-2023 Covid-19 Vaccine () Covid-19 Vaccine () [facility] Start: 10-11-2023 Influenza vaccination Influenza Vacc ine (#1) [facility] Start: 07-22-2023 DEPRESSION ASSESSMENT DEPRESSION ASS ESSMENT [facility] Comment on above: Postponed from 02/09 (Postponed - Not Clinically Indicated) Start: 07-15-2023 ANNUAL PCP TEAM LAMINATING MACHINE FEEDER SELAM DISEASE VISIT ANNUAL PCP TEAM CHRONIC DISEASE VISIT [facility] Start: 05-15-2023 DIABETES SCREEN DIABETES SCREEN [facility] Start: 03-03-2023 Mammography [facility] Start: 03-03-2023 Screening for malign ant neoplasm of breast Mammogram Screening [facility] Start: 02-09-2023 Behavioral Health Screening Behavioral Health Screening [facility] Start: 02-09-2023 Depression Assessment Depression Ass essment [facility] Start: 10-10-2022 Covid-19 Vaccine () Covid-19 Vaccine () [facility] Start: 10-10-[address] [facility] Start: 08-14-2022 ANNUAL PCP TEAM LAMINATING MACHINE FEEDER SELAM DISEASE VISIT ANNUAL PCP TEAM CHRONIC DISEASE VISIT [facility] Start: 08-14-2022 SHINGRIX VACCINE (1 of 2) ADEN GRIX VACCINE (1 of 2) [facility] Comment on above: Postponed from 07/30 (Declined at this time) Start: 07-14-2022 End: 09-13-2022 Basic metabolic 2000 panel - Serum or Plasma BASIC METABOLIC PNL Lab STAT Hypokalemia Giardial enteritis Expected: 07/14/2022, Expires: 09/13/2022 [facility] Work Phone: Comment on above: Expected: 07/14/2022 , Expires: 09/13/2022 Start: 07-11-2022 Enteric precautions [facility] Start: 06-25-2022 Adult depression screening assessment DEPRESSION SCREENING [facility] Start: 02-09-2022 DEPRESSION ASSESSMENT DEPRESSION ASS ESSMENT [facility] Start: 11-30-2021 Mammography MAMMOGRAM [facility] Start: 10-10-[address] [facility] Start: 09-03-2021 COLORECTAL CANCER SCREENING COLORECTAL CANCER SCREENING [facility] Start: 06-05-2021 COVID-19 VACCINE (4 - Booster for Moderna series) COVID-19 VACCINE (4 - Booster for Moderna series) [facility] Start: 01-16-2021 HPV TESTING HPV TESTING [facility] Start: 01-16-2021 PAP TESTING PAP TESTING [facility] Start: 10-24-2020 ANNUAL PCP TEAM LAMINATING MACHINE FEEDER SELAM DISEASE VISIT ANNUAL PCP TEAM CHRONIC DISEASE VISIT [facility] Start: 10-10-2020 Influenza vaccination INFLUENZA (#1) [facility] Start: 2020 RSV Vaccine (1 - 1-d ose 60+ series) RSV Vaccine (1 - 1-dose 60+ series) [facility] Start: 07-02-2019 Adult depression screening assessment DEPRESSION SCREENING [facility] Start: 02-06-2019 COLORECTAL CANCER SCREENING COLORECTAL CANCER SCREENING [facility] Start: 02-06-2019 FECAL OCCULT BLOOD FECAL OCCULT BLOO D [facility] Start: 02-06-2019 Screening for malign ant neoplasm of colon Fecal Occult Blood [facility] Start: 2010 SHINGRIX VACCINE (1 of 2) ADEN GRIX VACCINE (1 of 2) [facility] Start: 2005 COLOGUARD (FIT-DNA) COLOGUARD (FIT-D NA) [facility] Start: 2005 Colonoscopy COLONOSCOPY [facility] Start: [address] COLONOGRAPHY [facility] Start: 2005 Screening for malign ant neoplasm of colon [facility] Start: 2005 SIGMOIDOSCOPY SIGMOIDOSCOPY [facility] Start: 1978 Depression Screening Depression Scre ening [facility] Start: 1978 HIV SCREENING HIV SCREENING [facility] Bacteria identified in Urine by Culture URINE CULTURE Microbiology Routine Dysuria Ordered: 10/12/2022 [facility] Work Phone: Comment on above: Ordered: 10/12/2022 Clostridioides diffi cile DNA [Presence] in Unspecified specimen by NGA with probe detection [facility] Clostridioides diffi cile toxin genes [Presence] in Stool by NGA with probe detection C. DIFFICILE PCR Lab Routine Diarrhea, unspecified type Ordered: 07/11/2022 [facility] Work Phone: Comment on above: Ordered: 07/11/2022 COLOGUARD COLOGUARD Lab Ro utine Colon cancer screening Ordered: 08/14/2021 [facility] Work Phone: Comment on above: Ordered: 08/14/2021 End: 05-07-2024 DBT Breast - bilateral screening SYDNEE SCREENING W [facility] Radiology Routine Encounter for screening mammogram for breast cancer 1 Occurrences starting 04/08/2023 until 05/07/2024 [facility] Work Phone: Comment on above: 1 Occurrences starti ng 04/08/2023 until 05/07/2024 End: 01-15-2025 DBT Breast - bilateral screening SYDNEE SCREENING W [facility] Radiology Routine Encounter for gynecological examination (general) (routine) without abnormal findings Encounter for screening mammogram for breast cancer 1 Occurrences starting 12/17/2023 until 01/15/2025 [facility] Work Phone: Comment on above: 1 Occurrences starti ng 12/17/2023 until 01/15/2025 DBT Breast - bilater al screening SYDNEE SCREENING W [facility] Radiology Routine Encounter for screening mammogram for breast cancer 12/17/2023 1:29 PM EST [facility] Work Phone: ENTERIC BACTERIAL PA BUSTER BY PCR ENTERIC BACTERIAL PANEL BY PCR Lab Routine Diarrhea, unspecified type Ordered: 07/11/2022 [facility] Work Phone: Comment on above: Ordered: 07/11/2022 Gastrointestinal pathogens panel - Stool by NGA with probe detection [facility] Giardia lamblia+Cryptosporidium sp Ag [Presence] in Stool by Immunoassay CRYPTOSPORIDIUM AND GIARDIA ANTIGENS BY EIA Microbiology Routine Diarrhea, unspecified type Ordered: 07/11/2022 [facility] Work Phone: Comment on above: Ordered: 07/11/2022 End: 07-25-2022 SYDNEE SCREENING W FREN[facility] SYDNEE SCREENING W [facility] Radiology Routine Encounter for screening mammogram for breast cancer 1 Occurrences starting 06/25/2021 until 07/25/2022 [facility] Work Phone: Comment on above: 1 Occurrences starti ng 06/25/2021 until 07/25/2022 PAP FLUID CERVICAL SCREENING PAP FLUID CERVICAL SCREENING Lab Routine Encounter for screening for human papillomavirus (HPV) Pap smear for cervical cancer screening Ordered: 06/25/2021 [facility] Work Phone: Comment on above: Ordered: 06/25/2021 Patient Education [facility] Work Phone: Patient referral [facility] Work Phone: [facility] Immunizations Immunization Date Immunization Notes Care Provider Gaby hurtado 11-18-2022 influenza virus vaccine, unspecified formulation X[facility] [place] Work Phone: [facility] 08-02-2021 COVID-19 vaccine, fu ll dose (MODERNA) Cayla Older CIGAR PACKER AND GRADER.WILDLIFE BIOSTATION RESEARCH ECOLOGIST Work Phone: [facility] 11-05-2016 influenza, injectabl e, quadrivalent, contains preservative Mikael Kiran CIGAR PACKER AND GRADER.WILDLIFE BIOSTATION RESEARCH ECOLOGIST Work Phone: [facility] Work Phone: 11-05-2016 influenza virus vaccine, unspecified formulation Screen Wstr [facility] 11-09-2014 influenza, seasonal, injectable Mikael Kiran CIGAR PACKER AND GRADER.WILDLIFE BIOSTATION RESEARCH ECOLOGIST Work Phone: [facility] 11-24-2011 influenza virus vaccine, unspecified formulation Mikael Kiran [employer]ER [employer] GRADER.WILDLIFE BIOSTATION RESEARCH ECOLOGIST Work Phone: [facility] Work Phone: 09-07-2008 tetanus toxoid, redu shannon diphtheria toxoid, and acellular pertussis vaccine, adsorbed Mikael Kiran CIG[employer] P[employer]ER [employer] GRADER.[facility] Work Phone: [facility] Work Phone: Payers Date Payer Category Payer Self-pay [id number] 2021 Unknown [employer]UE [employer] PPO [id number] 2021-Present [phone] [address] [place] [address] PPO [id number] 2021 Unknown ANTHEM BLUE ACCE SS PPO [id number] 2021-Present [phone] [address] [place] [address] PPO [id number] 2021 Unknown [id number] Unknown [id number] Unknown [id number] Unknown [id number] Unknown [id number] Social History Date Type Detail Facility Start: 08-23-2010 End: 05-19-2023 Tobacco smoking status NHIS Never smoked tobacco [facility] Work Phone: Start: 05-01-2021 End: 12-17-2023 Alcohol intake Current drinker of alcohol (finding) [facility] Start: 10-21-2019 End: 07-14-2022 History SDOH Social Connections Phone 5 [facility] Start: 10-21-2019 End: 07-14-2022 History SDOH Social Connections Get Together 3 [facility] Start: 10-21-2019 End: 07-14-2022 History SDOH Social Connections Muslim 1 [facility] Start: 10-21-2019 End: 07-14-2022 History SDOH Social Connections Meetings 2 [facility] Start: 10-21-2019 Education 13 [facility] Start: 1960 Sex Assigned At Female [facility] Start: 04-21-2021 End: 06-24-2021 Exposure to SARS-CoV-2 (event) Not sure [facility] Start: 05-20-2021 End: 07-13-2022 Tobacco smoking status NHIS Unknown if ever smoked [facility] Start: 08-23-2010 End: 07-11-2022 Tobacco use and exposure Smokeless tobacco non-user [facility] Work Phone: Start: 06-25-2021 End: 07-14-2022 History of Social function [facility] Start: 06-25-2021 End: 07-14-2022 Social connection and isolation panel [facility] Frequency of Communication with Friends and Family Not on file [facility] Do you belong to any clubs or organizations such as hoahaoism groups, unions, fraternal or athletic groups, or school groups? Yes [facility] Are you now , , , , never or living with a partner? [facility] How often to you hav e a drink containing alcohol? Monthly or less [facility] How many standard dr inks containing alcohol do you have on a typical day? 1 or 2 [facility] How often do you hav e 6 or more drinks on 1 occasion? Never [facility] Do you feel stress - tense, restless, nervous, or anxious, or unable to sleep at night because your mind is troubled all the time - these days [OSQ] Only a little [facility] (I/We) worried wheth er (my/our) food would run out before (I/we) got money to buy more. Never true [facility] In the past 12 month s, was there a time when you were not able to pay the mortgage or rent on time? No [facility] Start: 10-19-2019 Gender identity Identifies as female gender (finding) [facility] Start: 10-19-2019 Sexual orientation Heterosexual (finding) [facility] Do you feel stress - tense, restless, nervous, or anxious, or unable to sleep at night because your mind is troubled all the time - these days [OSQ] Not at all [facility] Do you feel stress - tense, restless, nervous, or anxious, or unable to sleep at night because your mind is troubled all the time - these days [OSQ] To some extent [facility] Start: 05-18-2024 Sex Female (finding) [facility] Medical Equipment Procedure Code Equipment Code Equipment Original Text Equipment Identifier Dates Total cholecystectomy with exploration of common bile duct CLIP,HEMMIGUELANGEL HAIDER WECK FDA Start: 02-08-2018 Total cholecystectomy with exploration of common bile duct CLIP,HEMOLODAVID HAIDER WECK FDA Start: 02-08-2018 Total cholecystectomy with exploration of common bile duct CLIP,HEMMIGUELANGEL MED WECK FDA Start: 02-08-2018 Total cholecystectomy with exploration of common bile duct MESH,PROLENE [id number] FDA Start: 02-08-2018 Total cholecystectomy with exploration of common bile duct CLIP,HEMMIGUELANGEL HAIDER WECK FDA Start: 02-08-2018 Total cholecystectomy with exploration of common bile duct CLIP,HEMMIGUELANGEL HAIDER WECK FDA Start: 02-08-2018 Total cholecystectomy with exploration of common bile duct CLIP,HEMOLODAVID MED WECK FDA Start: 02-08-2018 Total cholecystectomy with exploration of common bile duct MESH,PROLENE [id number] FDA Start: 02-08-2018 Total cholecystectomy with exploration of common bile duct CLIP,HEMMIGUELANGEL HAIDER WECK FDA Start: 02-08-2018 Total cholecystectomy with exploration of common bile duct CLIP,HEMOLOCK MED WECK FDA Start: 02-08-2018 Total cholecystectomy with exploration of common bile duct CLIP,HEMOLOCK MED WECK FDA Start: 02-08-2018 Total cholecystectomy with exploration of common bile duct MESH,PROLENE [id number] FDA Start: 02-08-2018 Total cholecystectomy with exploration of common bile duct CLIP,HEMMIGUELANGEL HAIDER WECK FDA Start: 02-08-2018 Total cholecystectomy with exploration of common bile duct CLIP,HEMMIGUELANGEL HAIDER WECK FDA Start: 02-08-2018 Total cholecystectomy with exploration of common bile duct CLIP,HEMOLOCK MED WECK FDA Start: 02-08-2018 Total cholecystectomy with exploration of common bile duct MESH,PROLENE [id number] FDA Start: 02-08-2018 Total cholecystectomy with exploration of common bile duct CLIP,HEMOLOCK MED WECK FDA Start: 02-08-2018 Total cholecystectomy with exploration of common bile duct CLIP,HEMOLOCK MED WECK FDA Start: 02-08-2018 Total cholecystectomy with exploration of common bile duct CLIP,HEMOLOCK MED WECK FDA Start: 02-08-2018 Total cholecystectomy with exploration of common bile duct MESH,PROLENE [id number] FDA Start: 02-08-2018 Total cholecystectomy with exploration of common bile duct CLIP,HEMOLOCK MED WECK FDA Start: 02-08-2018 Total cholecystectomy with exploration of common bile duct CLIP,HEMOLOCK MED WECK FDA Start: 02-08-2018 Total cholecystectomy with exploration of common bile duct CLIP,HEMOLOCK MED WECK FDA Start: 02-08-2018 Total cholecystectomy with exploration of common bile duct MESH,PROLENE [id number] FDA Start: 02-08-2018 Mental Status Date Assessment Result Facility 07-13-2022 Cognitive function Voice/Name [facility] Work Phone: Clinical Notes 08-30-2010 to 05-17-2024 Note Date & Type Note Facility 05-17-2024 Evaluation note Diagnosis Onset Date Resolution Hyperlipidemia chronic May 17, 2024 3:55pm Postablative hypothyroidism chronic May 17, 2024 3:55pm [facility] Work Phone: 1(290) 873-690511-07-2024 History of Present illness Narrative* Gareth Marroquin Mammo Tech - 12/17/2023 1:10 PM EST Radiology Service Progress Note PATIENT NAME: Heidi Maravilla DATE OF SERVICE: December 17, 2023 TIME: 1:50 PM PATIENT IDENTITY VERIFICATION COMPLETED USING TWO (2) IDENTIFIERS: Name and Date of confirmedby patient verbally. FALL SCREENING: Has the patient had 2 falls in the last year or 1 fall with injury or currently using an Ambulatory Assistive Device (Walker, Cane, Wheelchair, Crutches, etc.)? No PATIENT GENDER DATA: Female. status: : No status: NO. PATIENT RELEVANT IMPLANT DATA REVIEWED: Not Applicable PATIENT PRESENTS WITH AN IMPLANTABLE OR ATTACHED STOCK CHECKER: No RADIOLOGY DEPARTMENT: Mammography PERIPHERAL IV DATA: Not applicable SIGNED BY: Ken Perdomo December 17, 2023 1:50 PM documented in this encounterC[facility]24 NoteHNO ID: [id number] Author: GARETH MARROQUIN Mammo Tech Service: ? Author Type: Lawn Care Professional Type: Progress Notes Filed: 12/17/2023 13:50 Note Text: Radiology Service Progress Note PATIENT NAME: Heidi Maravilla DATE OF SERVICE: December 17, 2023 TIME: 1:50 PM PATIENT IDENTITY VERIFICATION COMPLETED USING TWO (2) IDENTIFIERS: Name and Date of confirmed by patient verbally. FALL SCREENING: Has the patient had 2 falls in the last year or 1 fall with injury or currently using an Ambulatory Assistive Device (Walker, Cane, Wheelchair, Crutches, etc.)? No PATIENT GENDER DATA: Female. status: : No status: NO. PATIENT RELEVANT IMPLANT DATA REVIEWED: Not Applicable PATIENT PRESENTS WITH AN IMPLANTABLE OR ATTACHED STOCK CHECKER: No RADIOLOGY DEPARTMENT: Mammography PERIPHERAL IV DATA: Not applicable SIGNED BY: Ken Perdomo December 17, 2023 1:50 [facility]11-07-2024 NoteHNO ID: [id number] Author: LAUREL PONCE APRN.WILDLIFE BIOSTATION RESEARCH ECOLOGIST Service: ? Author Type: Nurse Practitioner Type: Progress Notes Filed: 12/17/2023 14:01 Note Text: Patient declined director of district office. Hannah is a 63 year old who presents for an annual gynecologic exam without complaints. Patient discontinued taking Celexa due to unable to get refills from PCP. She still having some anxiety at times due to taking care of mother with dementia. She is wondering if there is anything else besides going back on the Celexa that she could do. Postmenopausal: Yes since age HRT use: No. Last Pap: 07/03/2021 normal HPV: 06/28/2021 negative History of abnormal pap: No Last mammogram: 2022 normal, 2023 results pending with visit. History of abnormal mammogram: Yes Sexually active: sometimes OB History T2 L2 SAB0 IAB0 Ectopic0 Multiple0 Live Births0 Validation Intern History LMP: 08/21/2010, Ablation Age at Menarche: Age at First : Age at Menopause: Validation Intern History Comments: Sexual Activity: Yes; Male; novasure Contraception: Tubal Ligation PAST MEDICAL HISTORY Diagnosis Date Acute appendicitis 08/08/2016 Chronic idiopathic thrombocytopenia (HCC) 09/20/2012 Chronic ITP (idiopathic thrombocytopenia) (HCC) managed by Dr. Naranjo (clinical diagnosis 08/2010) Chronic rhinitis 02/25/2007 Grave's disease treated with radioactive iodine Hypothyroidism Menorrhagia Other and unspecified hyperlipidemia Plantar fasciitis, bilateral left worse than right Sacroiliitis, not elsewhere classified (HCC) 11/13/2006 Sialoadenitis 11/02/2007 Ventral hernia without obstruction or gangrene 03/05/2018 Vitamin D deficiency PAST SURGICAL HISTORY Procedure Laterality Date CHOLECYSTECTOMY 02/08/2018 CYSTOURETHROSCOPY 07/03/1998 Cystoscopy, right ureteroscopy, stone removal, right ureteral stent insertion HERNIA REPAIR HX 02/08/2018 LAPAROSCOPIC APPENDECTOMY 2016 LIG/TRNSXJ FLP TUBE ABDL/VAG APPR UNI/BI 07/02/1995 Laparoscopic NOVASURE 10/01/2010 TUMOR REMOVAL (SPECIFY LOCATION) HX Left 11/2017 FAMILY HISTORY Problem Relation Age of Onset other (Hypercholesterolemia) Mother Heart Father ME at 37; at 52 Hypertension Father Genetic Paternal Grandfather Heart Hypertension Sister Kidney Disease Sister SOCIAL HISTORY Social History Tobacco Use Smoking status: Never Smokeless tobacco: Never Vaping Use Vaping status: Never Used Substance Use Topics Alcohol use: Yes Comment: socially Drug use: No REVIEW OF SYSTEMS Abdomen: No abdominal pain, nausea, vomiting, diarrhea, or constipation. No bloating, early satiety, indigestion, or increased flatulence. Bladder: No dysuria, gross hematuria, urinary frequency, urinary urgency, or incontinence Breast: No breast lumps, nipple d/c, overlying skin changes, redness or skin retraction Allergies and current medication updated:Yes SENSITIVE EXAM: The sensitive examination was discussed with the Patient or Patient's Authorized Text Transcriber. As applicable, any other physician, advance practice provider, medical student, or other health professional student that will be observing or involved in the sensitive examination for educational or training purposes was discussed with the Patient or Authorized Text Transcriber. The Patient or Authorized Text Transcriber has agreed to proceed with the sensitive examination. (Sensitive examination includes inspection and/or palpation of the breasts, pelvis, prostate and anorectal regions). EXAM: LMP 08/21/2010 GENERAL: pleasant, female in no apparent distress HEENT: Normocephalic, atraumatic, mucus membranes moist, and no lesions DERMATOLOGY: Normal, without lesions, non-icteric, and non-hirsute BREAST: soft, non-tender, symmetric, no dominant mass, normal nipple-areolar complex, no lymphadenopathy, and no nipple discharge CHEST: Normal inspiratory effort ABDOMEN: soft, non-tender, and no masses PELVIC: external genitalia normal, normal Bartholin's glands, urethra, [place]'s glands, no vulvar lesions, no cervical lesions, physiologic discharge present, normal appearing perineal body and perianal region BIMANUAL: uterus normal size, shape and consistency, no adnexal masses, and non-tender RECTOVAGINAL: deferred. NEURO: alert and oriented x3,exam grossly non-focal EXTREMITIES: normal ASSESSMENT/PLAN: 1) Health maintenance: Pap/HPV up to date. Mammogram ordered Mammogram up to date Nutrition, exercise and routine health maintenance exams reviewed. Calcium/Vitamin D supplementation information provided. Colon cancer screening: up to date with screening- Cologuard in 2021 BMD: up to date - 2023 by superintendent radio communications 2) Follow up one year or sooner as needed 3) Buspar ordered Laurel Ponce APRN.[facility]NP[facility]11-07-[facility] History of Present illness Narrative* Laurel Ponce APRN.CNP - 12/17/2023 1:04 PM EST Patient declined director of district office. Hannah is a 63 year old who presents for an annual gynecologic exam without complaints. Patient discontinued taking Celexa due to unable to get refills from PCP. She still having some anxiety at times due to taking care of mother with dementia. She is wondering if there is anything elsebesides going back on the Celexa that she could do. Postmenopausal: Yes since age HRT use: No. Last Pap: 07/03/2021 normal HPV: 06/28/2021 negative History of abnormal pap: No Last mammogram: 2022 normal, 2023 results pending with visit. History of abnormal mammogram: Yes Sexually active: sometimes OB History T2 L2 SAB0 IAB0 Ectopic0 Multiple0 Live Births0 Validation Intern History LMP: 08/21/2010, Ablation Age at Menarche: Age at First : Age at Menopause: Validation Intern History Comments: Sexual Activity: Yes; Male; novasure Contraception: Tubal Ligation PAST MEDICAL HISTORY Diagnosis Date Acute appendicitis 08/08/2016 Chronic idiopathic thrombocytopenia (HCC) 09/20/2012 Chronic ITP (idiopathic thrombocytopenia) ([facility]) managed by Dr. Naranjo (clinical diagnosis 08/2010) Chronic rhinitis 02/25/2007 Grave's disease treated with radioactive iodine Hypothyroidism Menorrhagia Other and unspecified hyperlipidemia Plantar fasciitis, bilateral left worse than right Sacroiliitis, not elsewhere classified (HCC) 11/13/2006 Sialoadenitis 11/02/2007 Ventral hernia without obstruction or gangrene 03/05/2018 Vitamin D deficiency PAST SURGICAL HISTORY Procedure Laterality Date CHOLECYSTECTOMY 02/08/2018 CYSTOURETHROSCOPY 07/03/1998 Cystoscopy, right ureteroscopy, stone removal, right ureteral stent insertion HERNIA REPAIR HX 02/08/2018 LAPAROSCOPIC APPENDECTOMY 2016 LIG/TRNSXJ FLP TUBE ABDL/VAG APPR UNI/BI 07/02/1995 Laparoscopic NOVASURE 10/01/2010 TUMOR REMOVAL (SPECIFY LOCATION) HX Left 11/2017 FAMILY HISTORY Problem Relation Age of Onset other (Hypercholesterolemia) Mother Heart Father ME at 37; at 52 Hypertension Father Genetic Paternal Grandfather Heart Hypertension Sister Kidney Disease Sister SOCIAL HISTORY Social History Tobacco Use Smoking status: Never Smokeless tobacco: Never Vaping Use Vaping status: Never Used Substance Use Topics Alcohol use: Yes Comment: socially Drug use: No REVIEW OF SYSTEMS Abdomen: No abdominal pain, nausea, vomiting, diarrhea, or constipation. No bloating, early satiety, indigestion, or increased flatulence. Bladder: No dysuria, gross hematuria, urinary frequency, urinary urgency, or incontinence Breast: No breast lumps, nipple d/c, overlying skin changes, redness or skin retraction Allergies and current medication updated:Yes SENSITIVE EXAM: The sensitive examination was discussed with the Patient or Patient's Authorized Text Transcriber. As applicable, any other physician, advance practice provider, medical student, or other health professional student that will be observing or involved in the sensitive examination for educational or training purposes was discussed with the Patient or Authorized Text Transcriber. The Patient or Authorized Text Transcriber has agreed to proceed with the sensitive examination. (Sensitive examination includes inspection and/or palpation of the breasts, pelvis, prostate and anorectal regions). EXAM: LMP 08/21/2010 GENERAL: pleasant, female in no apparent distress HEENT: Normocephalic, atraumatic, mucus membranes moist, and no lesions DERMATOLOGY: Normal, without lesions, non-icteric, and non-hirsute BREAST: soft, non-tender, symmetric, no dominant mass, normal nipple-areolar complex, no lymphadenopathy, and no nipple discharge CHEST: Normal inspiratory effort ABDOMEN: soft, non-tender, and no masses PELVIC: external genitalia normal, normal Bartholin's glands, urethra, [place]'s glands, no vulvar lesions, no cervical lesions, physiologic discharge present, normal appearing perineal body and perianal region BIMANUAL: uterus normal size, shape and consistency, no adnexal masses, and non-tender RECTOVAGINAL: deferred. NEURO: alert and oriented x3,exam grossly non-focal EXTREMITIES: normal ASSESSMENT/PLAN: 1) Health maintenance: Pap/HPV up to date. Mammogram ordered Mammogram up to date Nutrition, exercise and routine health maintenance exams reviewed. Calcium/Vitamin D supplementation information provided. Colon cancer screening: up to date with screening- Cologuard in 2021 BMD: up to date - 2023 by superintendent radio communications 2) Follow up one year or sooner as needed 3) Derrick Ponce APRN.NATALIE documented in this encounterC[facility]02-28-[facility] NotePatient Outreach (INTMMN) HEIDI MARAVILLA ([id number]) 1960 F Date Time Provider Department 04/08/23 NURY ZAPATA INTMARKN During your visit today, we recorded the following information about you: Allergies As of Date: 04/08/2023 Noted Allergy Reaction METHIMAZOLE 05/24/2008 9 - Itching POISON SHIVANI EXTRACT 07/01/2018 4 - Hives 7 - Swelling Date Reviewed: 10/12/2022 Reviewed by: Celi Bhatt LPN - Fully Assessed Visit Diagnosis:Encounter for screening mammogram for breast cancer [Z12.31] Order(s):[facility] SCREENING [facility] [[id number]] Order #: [id number] FUTURE Prescriptions as of 04/13/2023 - Bacillus coagulans (DIGESTIVE ADVANTAGE PROB GUMMY) 250 million cell Take 2 tablets by mouth twice daily. - cholecalciferol, vitamin D3, (VITAMIN D3 50 MCG, 2,000 UNIT, GUMMIES) Take 2 Doses by mouth twice daily. - citalopram (CELEXA) 20 mg tablet Take 0.5 tablets by mouth once daily. as directed - ondansetron orally disintegrating (ZOFRAN ODT) 4 mg disintegrating tablet Take 1 tablet by mouth every 6 hours as needed for nausea/vomiting. - potassium chloride SR (MICRO-K) 10 mEq CR capsule Take 2 capsules by mouth twice daily. - atorvastatin (LIPITOR) 10 mg tablet Take 0.5 tablets by mouth once daily. - levothyroxine (SYNTHROID) 100 mcg tablet Take daily 6 days a week only. Prescribed by Dr. Mario Bcek Problem List As Of Date 04/08/2023 Noted Resolved Hyperlipidemia [E78.5] 12/04/2004 HYPERGLYCEMIA [R79.89] 06/04/2005 05/21/2010 Calculus of kidney [N20.0] 06/04/2005 12/30/2011 FAMILY HX ISCHEM HEART DIS [Z82.49] 11/13/2006 Sacroiliitis, not elsewhere classified (HCC) [M*11/13/2006 08/14/2021 Chronic rhinitis [J31.0] 02/25/2007 08/14/2021 Sialoadenitis [K11.20] 11/02/2007 08/14/2021 Essential and other specified forms of tremor [*11/02/2007 05/21/2010 HYPERREFLEXIA [R29.2] 03/17/2008 05/21/2010 HYPERTHYROID [E05.90] 04/11/2008 01/28/2011 Vitamin D deficiency [E55.9] 06/25/2010 Hypothyroidism [E03.9] Iron deficiency [E61.1] 08/30/2010 01/15/2011 Chronic idiopathic thrombocytopenia [D69.3] 09/20/2012 Plantar fasciitis, bilateral [M72.2] 08/14/2021 Acute appendicitis [K35.80] 08/08/2016 08/14/2021 Ventral hernia without obstruction or gangrene *03/05/2018 08/14/2021 Anxiety disorder [F41.9] 08/14/2021 Encounter Status:Closed by OPAL PRODUSELori on 04/13/23[facility] Telephone encounter Note* Telephone Encounter - Charlene Anglin - 12/02/2022 2:16 PM EDT Opened in error, please disregard. [facility]10-24-2023 Miscellaneous Notes* Telephone Encounter - Charlene Anglin - 12/02/2022 2:16 PM EDT Opened in error, please disregard. documented in this encounterC[facility]09-03-[facility] History of Present illness Narrative* Kelli Fair APRN.WILDLIFE BIOSTATION RESEARCH ECOLOGIST - 10/12/2022 9:11 AM EDT This note was created using Fanzterriter. Subjective Heidi Maravilla is a 62 year old female. 62 year old female with PMH hyperlipidmiea, thyroid and idiopathic cytopenia presents for UTI. Acute onset Thursday night +pain with urinating +frequency +urgency +suprabic pressure +lower back pain. Denies fever or chills Denies recent coitus Denies recent catherizations. Used Ibuprofen The history is provided by the patient. No occupational analyst was used. UTI This is a new problem. The current episode started more than 2 days ago. The problem occurs every urination. The problem has not changed since onset.The quality of the pain is described as burning. The pain is at a severity of 4/10. The pain is moderate. There has been no fever. She is Not sexuallyactive. There is No history of pyelonephritis. Associated symptoms include frequency and urgency. Pertinent negatives include no chills, no sweats, no nausea, no vomiting, no discharge, no hematuria,no hesitancy, no possible and no flank pain. She has tried nothing for the symptoms. Her past medical history does not include kidney stones, single kidney, urological procedure, recurrent U TIs, urinary stasis or catheterization. PAST MEDICAL HISTORY Diagnosis Date Acute appendicitis 08/08/2016 Chronic idiopathic thrombocytopenia (HCC) 09/20/2012 Chronic ITP (idiopathic thrombocytopenia) ([facility]) managed by Dr. Naranjo (clinical diagnosis 08/2010) Chronic rhinitis 02/25/2007 Grave's disease treated with radioactive iodine Hypothyroidism Menorrhagia Other and unspecified hyperlipidemia Plantar fasciitis, bilateral left worse than right Sacroiliitis, not elsewhere classified (HCC) 11/13/2006 Sialoadenitis 11/02/2007 Ventral hernia without obstruction or gangrene 03/05/2018 Vitamin D deficiency PAST SURGICAL HISTORY Procedure Laterality Date CHOLECYSTECTOMY 02/08/2018 CYSTOURETHROSCOPY 07/03/1998 Cystoscopy, right ureteroscopy, stone removal, right ureteral stent insertion HERNIA REPAIR HX 02/08/2018 LAPAROSCOPIC APPENDECTOMY 2016 LIG/TRNSXJ FLP TUBE ABDL/VAG APPR UNI/BI 07/02/1995 Laparoscopic NOVASURE 10/01/2010 TUMOR REMOVAL (SPECIFY LOCATION) HX Left 11/2017 ALLERGIES Methimazole and Poison Shivani Extract MEDICATIONS Bacillus coagulans (DIGESTIVE ADVANTAGE PROB GUMMY) 250 million cell Take 2 tablets by mouth twice daily. cholecalciferol, vitamin D3, (VITAMIN D3 50 MCG, 2,000 UNIT, GUMMIES) Take 2 Doses by mouth twice daily. citalopram (CELEXA) 20 mg tablet Take 0.5 tablets by mouth once daily. as directed ondansetron orally disintegrating (ZOFRAN ODT) 4 mg disintegrating tablet Take 1 tablet by mouth every 6 hours as needed for nausea/vomiting. potassium chloride SR (MICRO-K) 10 mEq CR capsule Take 2 capsules by mouth twice daily. atorvastatin (LIPITOR) 10 mg tablet Take 0.5 tablets by mouth once daily. levothyroxine (SYNTHROID) 100 mcg tablet Take daily 6 days a week only. Prescribed by Dr. Mario Beck nitrofurantoin monohydrate and macrocrystal (MACROBID) 100 mg capsule Take 1 capsule by mouth twicedaily for 5 days. FAMILY HISTORY Problem Relation Age of Onset other (Hypercholesterolemia) Mother Heart Father ME at 37; at 52 Hypertension Father Genetic Paternal Grandfather Heart Hypertension Sister Kidney Disease Sister Social History Tobacco Use Smoking status: Never Smokeless tobacco: Never Vaping Use Vaping Use: Never used Substance Use Topics Alcohol use: Yes Comment: socially Drug use: No Review of Systems Constitutional: Negative for chills. Respiratory: Negative for apnea, choking and chest tightness. Cardiovascular: Negative for chest pain, palpitations and leg swelling. Gastrointestinal: Negative for abdominal pain, nausea and vomiting. Genitourinary: Positive for dysuria, frequency and urgency. Negative for flank pain, hematuria and hesitancy. Musculoskeletal: Negative for arthralgias and back pain. Skin: Negative for color change, pallor and rash. Allergic/Immunologic: Negative for environmental allergies, food allergies and immunocompromised state. Neurological: Negative for dizziness, facial asymmetry and headaches. Hematological: Negative for adenopathy. Does not bruise/bleed easily. Psychiatric/Behavioral: Negative for agitation and behavioral problems. Objective BP 132/72 Pulse 60 Temp 36.9 C (98.4 F) Resp 18 Wt 66.5 kg (146 lb 9.6 oz) LMP 08/21/2010 SpO2 98% BMI 25.97 kg/m Physical Exam Vitals and nursing note reviewed. Constitutional: General: She is not in acute distress. Appearance: Normal appearance. She is normal weight. She is not ill-appearing, toxic-appearing or diaphoretic. HENT: Head: Normocephalic and atraumatic. Right Ear: Ear canal and external ear normal. Left Ear: Ear canal and external ear normal. Nose: Nose normal. No congestion or rhinorrhea. Mouth/Throat: Mouth: Mucous membranes are moist. Pharynx: No oropharyngeal exudate or posterior oropharyngeal erythema. Eyes: General: Right eye: No discharge. Left eye: No discharge. Extraocular Movements: Extraocular movements intact. Conjunctiva/sclera: Conjunctivae normal. Pupils: Pupils are equal, round, and reactive to light. Cardiovascular: Rate and Rhythm: Normal rate and regular rhythm. Pulses: Normal pulses. Heart sounds: Normal heart sounds. No murmur heard. No friction rub. Pulmonary: Effort: Pulmonary effort is normal. No respiratory distress. Breath sounds: Normal breath sounds. No stridor. No wheezing, rhonchi or rales. Chest: Chest wall: No tenderness. Abdominal: General: Abdomen is flat. There is no distension. Palpations: Abdomen is soft. There is no mass. Tenderness: There is no abdominal tenderness. There is right CVA tenderness. There is no left CVA tenderness, guarding or rebound. Hernia: No hernia is present. Musculoskeletal: General: No swelling, tenderness, deformity or signs of injury. Normal range of motion. Cervical back: Normal range of motion and neck supple. No rigidity. Right lower leg: No edema. Left lower leg: No edema. Lymphadenopathy: Cervical: No cervical adenopathy. Skin: General: Skin is warm and dry. Coloration: Skin is not jaundiced or pale. Findings: No bruising, erythema, lesion or rash. Neurological: General: No focal deficit present. Mental Status: She is alert and oriented to person, place, and time. Cranial Nerves: No cranial nerve deficit. Sensory: No sensory deficit. Motor: No weakness. Coordination: Coordination normal. Gait: Gait normal. Psychiatric: Mood and Affect: Mood normal. Behavior: Behavior normal. Thought Content: Thought content normal. Judgment: Judgment normal. Assessment and Plan ASSESSMENT/PLAN: 1. Dysuria - ICD9: 788.1, ICD10: R30.0 acute - UA positive for hematuria - Send urine for culture - Begin treatment with Macrobid 100 mg BID for 5 days - Patient education for prevention given Discussed the possibility for renal calculi with patient as well. Discussed red flags and reasons to seek ED Verbalized understanding - UA DIP, URINE (POC) - URINE CULTURE Kelli Fair APRN.WILDLIFE BIOSTATION RESEARCH ECOLOGIST documented in this encounterC[facility] History of Present illness Narrative* Nury Zapata MD - 07/14/2022 2:08 PM EDT This note was created using NoteWriter. Subjective Heidi Maravilla is a 61 year old female. Patient presents with: ED Follow-up: [facility] ER follow up 07/11/22 Low potassium SUBJECTIVE: Heidi Maravilla is a 61 year old year old lady here today for follow up appointment for review of medical conditions. [facility] for low potassium. Was in ER twice. Actually here for follow up on giardia diagnosis. Diarrhea presumed cause for low potassium. Had nausea and watery diarrhea, no pain. Labs were done and so was sent to hospital for potassium level 2.8. Was prescribed treatment with 2g Tindamax. No diarrhea yesterday. Nausea not yet resolved. Took TUMS. Was having some reflux symptoms when was laying flat. Had trouble breathing s went to ER for this. PAST MEDICAL HISTORY Diagnosis Date Acute appendicitis 08/08/2016 Chronic idiopathic thrombocytopenia ([facility]) 09/20/2012 Chronic ITP (idiopathic thrombocytopenia) ([facility]) managed by Dr. Naranjo (clinical diagnosis 08/2010) Chronic rhinitis 02/25/2007 Grave's disease treated with radioactive iodine Hypothyroidism Menorrhagia Other and unspecified hyperlipidemia Plantar fasciitis, bilateral left worse than right Sacroiliitis, not elsewhere classified ([facility]) 11/13/2006 Sialoadenitis 11/02/2007 Ventral hernia without obstruction or gangrene 03/05/2018 Vitamin D deficiency Current Outpatient Medications Medication Sig Bacillus coagulans (DIGESTIVE ADVANTAGE PROB GUMMY) 250 million cell Take 2 tablets by mouth twice daily. cholecalciferol, vitamin D3, (VITAMIN D3 50 MCG, 2,000 UNIT, GUMMIES) Take 2 Doses by mouth twice daily. atorvastatin (LIPITOR) 10 mg tablet Take 0.5 tablets by mouth once daily. levothyroxine (SYNTHROID) 100 mcg tablet Take daily 6 days a week only. Prescribed by Dr. Mario Beck citalopram (CELEXA) 20 mg tablet Take 0.5 tablets by mouth once daily. as directed No current facility-administered medications for this visit. Review of Systems Objective BP 110/62 Pulse 81 Temp (!) 38.1 C (100.5 F) Resp 18 Wt 67.6 kg (149 lb) LMP 08/21/2010 SpO2 96% BMI 26.39 kg/m Physical Exam Constitutional: Appearance: Normal appearance. HENT: Head: Normocephalic. Eyes: Conjunctiva/sclera: Conjunctivae normal. Cardiovascular: Rate and Rhythm: Normal rate and regular rhythm. Heart sounds: Normal heart sounds. Pulmonary: Effort: Pulmonary effort is normal. Breath sounds: Normal breath sounds. Abdominal: General: Bowel sounds are normal. There is distension (gassy). Palpations: Abdomen is soft. Tenderness: There is no abdominal tenderness. Skin: General: Skin is warm and dry. Neurological: General: No focal deficit present. Mental Status: She is alert and oriented to person, place, and time. Psychiatric: Mood and Affect: Mood normal. Behavior: Behavior normal. Thought Content: Thought content normal. Judgment: Judgment normal. Assessment and Plan Encounter Diagnosis ICD-10-CM 1. Giardial enteritis A07.1 BASIC METABOLIC PNL 2. Hypokalemia E87.6 BASIC METABOLIC PNL 3. Anxiety F41.9 citalopram (CELEXA) 20 mg tablet 4. Gastroesophageal reflux disease, unspecified whether esophagitis present K21.9 Above issues addressed with patient. Patient involved in shared decision making for management of medical issues. Reviewed ER evaluation and treatment. Treatment and follow up labs discussed. Further evaluation and treatment as indicated. History and medications reviewed. Epic updated as needed Refills and/or prescriptions taken care of and meds adjusted as indicated after reviewed history, exam and labs. Health Maintenance reviewed. Updated record and/or ordered tests as recorded. I spent a total of 35 minutes on the date of the service which included [id number] patient care, completing clinical documentation, obtaining and/or reviewing separately obtained history, performing a medically appropriate examination, counseling and educating the patient/family/caregiver, ordering medications, tests, or procedures, independently interpreting results (not separately reported), and communicating results to the patient/family/caregiver. Nury Zapata MD documented in this encounterC[facility]06-04-[facility]23 Miscellaneous Notes* Telephone Encounter - Kelli Fair APRN.CNP - 07/13/2022 9:21 AM EDT POSITIVE for giardia 2 g Tindamax called into [employer] message sent. documented in this encounterC[facility]06-02-2023 Miscellaneous Notes* Telephone Encounter - Yesenia Soliz PA-C - 07/11/2022 10:01 AM EDT I called and discussed potassium of 2.8 with patient. Recommended she be seen in the emergency department for hydration and further evaluation. Patient agreeable with plan will go [facility]. Report sent via ER passport. documented in this encounterC[facility]06-02-2023 History of Present illness Narrative* Yesenia Soliz PA-C - 07/11/2022 8:07 AM EDT This note was created using EternoGen. Subjective Heidi Maravilla is a 61 year old female. HPI Patient presents with a chief complaint of diarrhea for 8 to 9 days. She has had watery stool sometimes up to 10 times a day. No blood in stool. Denies any abdominal pain but states she has had some bloating. No fever that she is taken at home but she has felt warm at night. She is felt nauseous, no vomiting. No cough or congestion. No sore throat. She did eat some leftover spaghetti the day thatthe diarrhea started but she states it tasted fine. No recent antibiotics or travel. She did go to [place] about 8 months ago, no other travel out of the [place]. No one around her has a diarrhea. She has felt weak and fatigued. She is drinking lots of water. Has been eating. She has not had a colonoscopy previously, has had Cologuard. Review of Systems Constitutional: Positive for chills and fatigue. HENT: Negative for congestion, ear pain, rhinorrhea and sore throat. Respiratory: Negative for cough. Cardiovascular: Negative. Gastrointestinal: Positive for abdominal distention, diarrhea and nausea. Negative for abdominal pain, blood in stool and vomiting. Genitourinary: Negative. Musculoskeletal: Negative. Neurological: Positive for weakness. Negative for dizziness, light-headedness, numbness and headaches. All other systems reviewed and are negative. PAST MEDICAL HISTORY Diagnosis Date Acute appendicitis 08/08/2016 Chronic idiopathic thrombocytopenia (HCC) 09/20/2012 Chronic ITP (idiopathic thrombocytopenia) (HCC) managed by Dr. Naranjo (clinical diagnosis 08/2010) Chronic rhinitis 02/25/2007 Grave's disease treated with radioactive iodine Hypothyroidism Menorrhagia Other and unspecified hyperlipidemia Plantar fasciitis, bilateral left worse than right Sacroiliitis, not elsewhere classified (HCC) 11/13/2006 Sialoadenitis 11/02/2007 Ventral hernia without obstruction or gangrene 03/05/2018 Vitamin D deficiency Current Outpatient Medications Medication Sig Dispense Refill atorvastatin (LIPITOR) 10 mg tablet Take 0.5 tablets by mouth once daily. 45 tablet 3 levothyroxine (SYNTHROID) 100 mcg tablet Take daily 6 days a week only. Prescribed by Dr. Mario Beck citalopram (CELEXA) 20 mg tablet Take 0.5 tablets by mouth once daily. as directed 90 tablet 3 No current facility-administered medications for this visit. PAST SURGICAL HISTORY Procedure Laterality Date CHOLECYSTECTOMY 02/08/2018 CYSTOURETHROSCOPY 07/03/1998 Cystoscopy, right ureteroscopy, stone removal, right ureteral stent insertion HERNIA REPAIR HX 02/08/2018 LAPAROSCOPIC APPENDECTOMY 2016 LIG/TRNSXJ FLP TUBE ABDL/VAG APPR UNI/BI 07/02/1995 Laparoscopic NOVASURE 10/01/2010 TUMOR REMOVAL (SPECIFY LOCATION) HX Left 11/2017 FAMILY HISTORY Problem Relation Age of Onset other (Hypercholesterolemia) Mother Heart Father ME at 37; at 52 Hypertension Father Genetic Paternal Grandfather Heart Hypertension Sister Kidney Disease Sister Social History Tobacco Use Smoking status: Never Smokeless tobacco: Never Vaping Use Vaping Use: Never used Substance Use Topics Alcohol use: Yes Comment: socially Drug use: No Objective BP 126/76 Pulse 90 Temp 36.8 C (98.2 F) Resp 18 Wt 66.3 kg (146 lb 3.2 oz) LMP 08/21/2010 SpO2 97% BMI 25.90 kg/m Physical Exam Vitals reviewed. Constitutional: Appearance: Normal appearance. HENT: Head: Normocephalic and atraumatic. Mouth/Throat: Mouth: Mucous membranes are moist. Pharynx: Oropharynx is clear. Cardiovascular: Rate and Rhythm: Normal rate and regular rhythm. Heart sounds: Normal heart sounds. Pulmonary: Effort: Pulmonary effort is normal. Breath sounds: Normal breath sounds. Abdominal: General: Abdomen is flat. Bowel sounds are normal. Palpations: Abdomen is soft. Tenderness: There is no abdominal tenderness. There is no guarding or rebound. Musculoskeletal: Cervical back: Neck supple. Skin: General: Skin is warm and dry. Findings: No rash. Neurological: General: No focal deficit present. Mental Status: She is alert. Assessment and Plan ASSESSMENT/PLAN: 1. Diarrhea, unspecified type - ICD9: 787.91, ICD10: R19.7 I will check a CBC CMP and stool studies. Will call on results. Discussed brat diet. Discussed increasing fluids including electrolyte drink. Flags for ER care discussed. Patient agreeable with plan. - CBC + DIFF - COMP METABOLIC PANEL - ENTERIC BACTERIAL PANEL BY PCR - C. DIFFICILE PCR - CRYPTOSPORIDIUM AND GIARDIA ANTIGENS BY EIA Yesenia Soliz PA-C documented in this encounterC[facility]01-24-2023 Miscellaneous Notes* Letter - Mammography Coordinator - 03/04/2022 7:08 AM EST March 04, 2022 PID: [id number] Heidi Maravilla [address] [place] [address] Dear Ms. Maravilla, We are pleased to inform you that the results of your recent breast imaging exam on 03/03/2022 are normal. Your mammogram demonstrates that you have dense breast tissue, which could hide abnormalities. Dense breast tissue, in and of itself, is a relatively common condition. Therefore, this information is not provided to cause undue concern; rather, it is to raise your awareness and promote discussion with your health care provider regarding the presence of dense breast tissue in addition to other riskfactors. Early detection of cancer is very important. We also understand recommendations regarding breast cancer screening are controversial. Please discuss with your primary care provider which strategy is best for you and whether a mammogram is right for you. Your imaging studies and report will be kept on file at [facility] as part of your permanent medical record and are available for your continuing care. Thank you for allowing us to help in meeting your health care needs. Sincerely, Dr. Gold Interpreting Radiologist [facility] (Normal over 40) documented in this encounterC[facility]01-23-2023 History of Present illness Narrative* Cielo Leblanc RT(R) - 03/03/2022 7:30 AM EST Radiology Service Progress Note PATIENT NAME: Heidi Maravilla DATE OF SERVICE: March 03, 2022 TIME: 7:22 AM PATIENT IDENTITY VERIFICATION COMPLETED USING TWO (2) IDENTIFIERS: Name and Date of confirmedby patient verbally. FALL SCREENING: Has the patient had 2 falls in the last year or 1 fall with injury or currently using an Ambulatory Assistive Device (Walker, Cane, Wheelchair, Crutches, etc.)? No PATIENT GENDER DATA: Female. status: : No status: NO. PATIENT RELEVANT IMPLANT DATA REVIEWED: Not Applicable RADIOLOGY DEPARTMENT: Mammography PERIPHERAL IV DATA: Not applicable SIGNED BY: RT Atif(R) March 03, 2022 7:22 AM documented in this encounterCleveland [facility]07-06-2022 History of Present illness Narrative* Cayla Olson, RICK.WILDLIFE BIOSTATION RESEARCH ECOLOGIST - 08/14/2021 4:41 PM EDT CC: Patient presents with: Medication Follow-up HPI Heidi Maravilla is a 61 year old female who presents today for above. Hyperlipidemia Taking statin as prescribed. Denies side effects. Exercise: denies regular aerobic exercise but is very active. Diet: Watches diet for salt (salty snacks, added salt, processed frozen/canned foods), sugary/sweetsnacks, unhealthy fats: most of the time Hypothyroidism Managed by endocrinology Dr. Mario Beck. Levothyroxine dose recently changed from 7 to 6 days a week. Anxiety disorder Taking Celexa daily. Helps control anxiety and irritability. No side effects Chronic idiopathic thrombocytopenia Denies unusual bleeding or bruising REVIEW OF SYSTEMS General: no fevers, no chills, no night sweats, no change in appetite, no change in energy and no significant changes in weight Respiratory: no cough, no wheezing, no shortness of breath Cardiovascular: no chest pain, no chest pressure, no palpitations, no swelling and no decrease in exercise tolerance PAST MEDICAL HISTORY Diagnosis Date Chronic ITP (idiopathic thrombocytopenia) (HCC) managed by Dr. Naranjo (clinical diagnosis 08/2010) Grave's disease treated with radioactive iodine Hypothyroidism Menorrhagia Other and unspecified hyperlipidemia Plantar fasciitis, bilateral left worse than right Vitamin D deficiency PAST SURGICAL HISTORY Procedure Laterality Date CHOLECYSTECTOMY 02/08/2018 CYSTOURETHROSCOPY 07/03/1998 Cystoscopy, right ureteroscopy, stone removal, right ureteral stent insertion HERNIA REPAIR HX 02/08/2018 LAPAROSCOPIC APPENDECTOMY 2016 LIG/TRNSXJ FLP TUBE ABDL/VAG APPR UNI/BI 07/02/1995 Laparoscopic NOVASURE 10/01/2010 TUMOR REMOVAL (SPECIFY LOCATION) HX Left 11/2017 ALLERGIES Methimazole and Poison Shivani Extract MEDICATIONS citalopram (CELEXA) 20 mg tablet Take 0.5 tablets by mouth once daily. as directed levothyroxine (SYNTHROID) 100 mcg tablet Take 1 tablet by mouth daily before breakfast. atorvastatin (LIPITOR) 10 mg tablet Take 0.5 tablets by mouth once daily. FAMILY HISTORY Problem Relation Age of Onset other (Hypercholesterolemia) Mother Heart Father ME at 37; at 52 Hypertension Father Genetic Paternal Grandfather Heart Hypertension Sister Kidney Disease Sister Social History Tobacco Use Smoking status: Never Smoker Smokeless tobacco: Never Used Vaping Use Vaping Use: Never used Substance Use Topics Alcohol use: Yes Comment: socially Drug use: No PHYSICAL EXAM BP 126/78 Pulse 62 Resp 16 Wt 68.9 kg (152 lb) LMP 08/21/2010 BMI 26.93 kg/m General Appearance: well appearing, in no acute distress, alert Lungs: Lungs clear to auscultation. No wheezing, rhonchi, rales. Heart: RRR without murmur, gallop, or rubs. No ectopy Health maintenance reviewed with patient: HIV SCREENING Never done SHINGRIX VACCINE(1 of 2) Never done COLORECTAL CANCER SCREENING due on 02/06/2019 ANNUAL PCP TEAM CHRONIC DISEASE VISIT due on 10/24/2020 INFLUENZA(1) due on 10/10/2021 MAMMOGRAM due on 11/30/2021 DEPRESSION SCREENING due on 06/25/2022 DIABETES SCREEN due on 05/15/2023 LIPID SCREEN due on 01/12/2025 PAP TESTING due on 06/25/2026 HPV TESTING due on 06/25/2026 DTAP,TDAP,TD(3 - Td or Tdap) due on 08/09/2029 HEPATITIS C SCREENING Completed COVID-19 VACCINE Completed DATA REVIEWED: Most recent labs ASSESSMENT/PLAN: 1. Mixed hyperlipidemia - ICD9: 272.2, ICD10: E78.2 (primary diagnosis) - to be determined upon return of lab results - Continue current medication. - ATORVASTATIN 10 MG TABLET 2. Postablative hypothyroidism - ICD9: 244.1, ICD10: E89.[address] Mario Beck - LEVOTHYROXINE 100 MCG TABLET 3. Anxiety disorder, unspecified type - ICD9: 300.00, ICD10: F41.9 Stable on Celexa 4. Colon cancer screening - ICD9: V76.51, ICD10: Z12.11 - COLOGUARD 5. Chronic idiopathic thrombocytopenia (HCC) - ICD9: 287.31, ICD10: D69.3 Recheck CBC if not done in the past year Prescription instructions reviewed with patient as applicable. Potential red flag symptoms discussed with the patient. Reviewed appropriate action plan to take if red flag symptoms occur. Patient agreeable to treatment plan. Cayla Olson APRN.CNP documented in this encounterCleveland [facility]05-17-2022 History of Present illness Narrative* Laurel Ponce APRN.CNP - 06/25/2021 7:10 AM EDT Hannah is a 60 year old who presents for an annual gynecologic exam with complaints, lump in vagina. Postmenopausal: Yes HRT use: No. Last Pap: 01/30/2016 normal HPV: 01/23/2016 negative History of abnormal pap: No Last mammogram: 2020 normal History of abnormal mammogram: Yes Sexually active: No OB History T2 L2 SAB0 IAB0 Ectopic0 Multiple0 Live Births0 Validation Intern History LMP: 08/21/2010, Ablation Age at Menarche: Age at First : Age at Menopause: Validation Intern History Comments: Sexual Activity: Yes; Male; novasure Contraception: Tubal Ligation PAST MEDICAL HISTORY Diagnosis Date Chronic ITP (idiopathic thrombocytopenia) (HCC) managed by Dr. Naranjo (clinical diagnosis 08/2010) Grave's disease treated with radioactive iodine Hypothyroidism Menorrhagia Other and unspecified hyperlipidemia Plantar fasciitis, bilateral left worse than right Vitamin D deficiency PAST SURGICAL HISTORY Procedure Laterality Date CHOLECYSTECTOMY 02/08/2018 CYSTOURETHROSCOPY 07/03/1998 Cystoscopy, right ureteroscopy, stone removal, right ureteral stent insertion HERNIA REPAIR HX 02/08/2018 LAPAROSCOPIC APPENDECTOMY 2016 LIG/TRNSXJ FLP TUBE ABDL/VAG APPR UNI/BI 07/02/1995 Laparoscopic NOVASURE 10/01/2010 TUMOR REMOVAL (SPECIFY LOCATION) HX Left 11/2017 FAMILY HISTORY Problem Relation Age of Onset other (Hypercholesterolemia) Mother Heart Father ME at 37; at 52 Hypertension Father Genetic Paternal Grandfather Heart Hypertension Sister Kidney Disease Sister SOCIAL HISTORY Social History Tobacco Use Smoking status: Never Smoker Smokeless tobacco: Never Used Vaping Use Vaping Use: Never used Substance Use Topics Alcohol use: Yes Comment: socially Drug use: No REVIEW OF SYSTEMS Abdomen: No abdominal pain, nausea, vomiting, diarrhea, or constipation. No bloating, early satiety, indigestion, or increased flatulence. Bladder: No dysuria, gross hematuria, urinary frequency, urinary urgency, or incontinence Breast: No breast lumps, nipple d/c, overlying skin changes, redness or skin retraction Allergies and current medication updated:Yes EXAM: Ht 5' 3 (1.60m) Wt 153 lb 12.8 oz (69.8kg) LMP 08/21/2010 BMI 27.25 kg/(m^2). GENERAL: pleasant, female in no apparent distress HEENT: Normocephalic, atraumatic, mucus membranes moist and no lesions NECK: Supple, full range of motion, no adenopathy and thyroid normal DERMATOLOGY: Normal, without lesions, non-icteric and non-hirsute BREAST: soft, non-tender, symmetric, no dominant mass, normal nipple-areolar complex, no lymphadenopathy and no nipple discharge CHEST: Normal inspiratory effort ABDOMEN: soft, non-tender and no masses PELVIC: external genitalia normal, normal Bartholin's glands, urethra, [place]'s glands, no vulvar lesions, no cervical lesions, physiologic discharge present, normal appearing perineal body and perianal region, cervical prolapse 2nd degree BIMANUAL: uterus normal size, shape and consistency, no adnexal masses, non- tender and no cervical motion tenderness RECTOVAGINAL: deferred. NEURO: alert and oriented x3,exam grossly non-focal EXTREMITIES: normal ASSESSMENT/PLAN: 1) Health maintenance: Pap done with HPV. Mammogram ordered Mammogram up to date Nutrition, exercise and routine health maintenance exams reviewed. Calcium/Vitamin D supplementation information provided. Colon cancer screening: patient to discuss with PCP 2) Follow up one year or sooner as needed Laurel Pocne APRN.NATALIE documented in this encounterC[facility] History of Present illness Narrative* Jen White RT(R) - 05/01/2021 8:10 AM EDT Radiology Service Progress Note PATIENT NAME: Heidi Maravilla DATE OF SERVICE: May 01, 2021 TIME: 8:08 AM PATIENT IDENTITY VERIFICATION COMPLETED USING TWO (2) IDENTIFIERS: Name and Date of confirmedby patient verbally. FALL SCREENING: Has the patient had 2 falls in the last year or 1 fall with injury or currently using an Ambulatory Assistive Device (Walker, Cane, Wheelchair, Crutches, etc.)? No PATIENT GENDER DATA: Female. status: : No status: NO. PATIENT RELEVANT IMPLANT DATA REVIEWED: Yes RADIOLOGY DEPARTMENT: General X-ray: Exam(s) Completed: Upper Extremity X- Ray(s): Hand, right PERIPHERAL IV DATA: Not applicable SIGNED BY: RT Kayden(R) May 01, 2021 8:08 AM documented in this encounterC[facility]03-23-[facility] History of Present illness Narrative* Mikael Beck APRN.CNP - 05/01/2021 7:59 AM EDT Images from the original note were not included. Subjective HPI HPI Heidi Maravilla is a 60 year old female who presents today for CC of right hand injury 2 weeksago, hit by farm animal, started to improve then was hit again then bruised and swelled. Has tried otc medication and ice for relief. Symptoms are worsened by rom of hand. Risk factors has ITP. Denies numbness/tingling of hand. .Patient presents with: Hand Injury: right hand pain and swelling x 2-3 weeks, smashed PAST MEDICAL HISTORY Diagnosis Date Chronic ITP (idiopathic thrombocytopenia) (HCC) managed by Dr. Naranjo (clinical diagnosis 08/2010) Grave's disease treated with radioactive iodine Hypothyroidism Menorrhagia Other and unspecified hyperlipidemia Plantar fasciitis, bilateral left worse than right Vitamin D deficiency PAST SURGICAL HISTORY Procedure Laterality Date CHOLECYSTECTOMY 02/08/2018 CYSTOURETHROSCOPY 07/03/1998 Cystoscopy, right ureteroscopy, stone removal, right ureteral stent insertion HERNIA REPAIR HX 02/08/2018 LAPAROSCOPIC APPENDECTOMY 2016 LIG/TRNSXJ FLP TUBE ABDL/VAG APPR UNI/BI 07/02/1995 Laparoscopic NOVASURE 10/01/2010 TUMOR REMOVAL (SPECIFY LOCATION) HX Left 11/2017 ALLERGIES Methimazole and Poison Shivani Extract MEDICATIONS levothyroxine (SYNTHROID) 100 mcg tablet Take 1 tablet by mouth daily before breakfast. atorvastatin (LIPITOR) 10 mg tablet Take 0.5 tablets by mouth once daily. citalopram (CELEXA) 20 mg tablet Take 0.5 tablets by mouth once daily. as directed FAMILY HISTORY Problem Relation Age of Onset other (Hypercholesterolemia) Mother Heart Father ME at 37; at 52 Hypertension Father Genetic Paternal Grandfather Heart Hypertension Sister Kidney Disease Sister Social History Tobacco Use Smoking status: Never Smoker Smokeless tobacco: Never Used Vaping Use Vaping Use: Never used Substance Use Topics Alcohol use: Yes Comment: socially Drug use: No ROS Objective Blood pressure 112/62, pulse 74, temperature 36.5 C (97.7 F), resp. rate 16, weight 71.2 kg (157 lb), last menstrual period 08/21/2010, SpO2 96 %. Physical Exam Constitutional: General: She is not in acute distress. Appearance: She is not toxic-appearing or diaphoretic. HENT: Head: Normocephalic and atraumatic. Cardiovascular: Pulses: Radial pulses are 2+ on the right side. Pulmonary: Effort: Pulmonary effort is normal. No accessory muscle usage or respiratory distress. Musculoskeletal: Hands: Neurological: Mental Status: She is alert and oriented to person, place, and time. ASSESSMENT/PLAN: 1. Hand injuries, right, initial encounter - ICD9: 959.4, ICD10: S69.91XA -no bony abnormality noted on xray -Rest, Ice, Compression, Elevation discussed -discussed use of ibuprofen -follow up with primary care if symptoms persist/worsen in 10-14 days -red flags discussed for urgent f/u - XR HAND GENERAL 3V PA/LAT/OBL RIGHT IMPRESSION: Punctate calcific density at the base of the ulnar aspect of the second middle phalanx which likely reflects a small marginal osteophyte though correlation with physical examination to exclude point tenderness which could indicate a tiny chip fracture is advised. Dictated by : SHAJI HARDIN MD Agrees to plan Mikael Beck APRN.NATALIE documented in this encounterC[facility]01-25-[facility] History of Past illness Narrative* Problem Noted Date Resolved Date Ventral hernia without obstruction or gangrene 0 03/05/2018 08/14/2021 Acute appendicitis 08/08/2016 08/14/2021 Iron deficiency 08/30/2010 01/15/2011 HYPERTHYROID 04/11/2008 01/28/2011 Overview: Graves Disease, Treated with Radioactive Iodine. Still seeing opthalmology for eyes. Follows with Endo Last Assessment & Plan: Stable on medications. HYPERREFLEXIA 03/17/2008 05/21/2010 Sialoadenitis 11/02/2007 08/14/2021 Last Assessment & Plan: History of stones, right parotid. Passed stone once. Never needed hospitalized, has not seen ENT. Present last 3-4 years. Essential and other specified forms of tremor 05/21/2010 Chronic rhinitis 02/25/2007 08/14/2021 Sacroiliitis, not elsewhere classified 7 08/14/2021 HYPERGLYCEMIA 06/04/2005 05/21/2010 Calculus of kidney 06/04/2005 12/30/2011 Last Assessment & Plan: History of 2 stones, nothing recently. Plantar fasciitis, bilateral 07/2021 Overview: left worse than right documented as of this encounter (statuses as of 08/14/2021) [facility] of Past illness Narrative* Problem Noted Date Resolved Date Ventral hernia without obstruction or gangrene 0 03/05/2018 08/14/2021 Acute appendicitis 08/08/2016 08/14/2021 Iron deficiency 08/30/2010 01/15/2011 HYPERTHYROID 04/11/2008 01/28/2011 Overview: Graves Disease, Treated with Radioactive Iodine. Still seeing opthalmology for eyes. Follows with Endo Last Assessment & Plan: Stable on medications. HYPERREFLEXIA 03/17/2008 05/21/2010 Sialoadenitis 11/02/2007 08/14/2021 Last Assessment & Plan: History of stones, right parotid. Passed stone once. Never needed hospitalized, has not seen ENT. Present last 3-4 years. Essential and other specified forms of tremor 05/21/2010 Chronic rhinitis 02/25/2007 08/14/2021 Sacroiliitis, not elsewhere classified 7 08/14/2021 HYPERGLYCEMIA 06/04/2005 05/21/2010 Calculus of kidney 06/04/2005 12/30/2011 Last Assessment & Plan: History of 2 stones, nothing recently. Plantar fasciitis, bilateral 07/2021 Overview: left worse than right documented as of this encounter (statuses as of 03/06/2022) [facility] of Past illness Narrative* Problem Noted Date Resolved Date Ventral hernia without obstruction or gangrene 0 03/05/2018 08/14/2021 Acute appendicitis 08/08/2016 08/14/2021 Iron deficiency 08/30/2010 01/15/2011 HYPERTHYROID 04/11/2008 01/28/2011 Overview: Graves Disease, Treated with Radioactive Iodine. Still seeing opthalmology for eyes. Follows with Endo Last Assessment & Plan: Stable on medications. HYPERREFLEXIA 03/17/2008 05/21/2010 Sialoadenitis 11/02/2007 08/14/2021 Last Assessment & Plan: History of stones, right parotid. Passed stone once. Never needed hospitalized, has not seen ENT. Present last 3-4 years. Essential and other specified forms of tremor 05/21/2010 Chronic rhinitis 02/25/2007 08/14/2021 Sacroiliitis, not elsewhere classified 7 08/14/2021 HYPERGLYCEMIA 06/04/2005 05/21/2010 Calculus of kidney 06/04/2005 12/30/2011 Last Assessment & Plan: History of 2 stones, nothing recently. Plantar fasciitis, bilateral 07/2021 Overview: left worse than right documented as of this encounter (statuses as of 07/11/2022) [facility] of [facility] illness Narrative* Problem Noted Date Resolved Date Ventral hernia without obstruction or gangrene 0 03/05/2018 08/14/2021 Acute appendicitis 08/08/2016 08/14/2021 Iron deficiency 08/30/2010 01/15/2011 HYPERTHYROID 04/11/2008 01/28/2011 Overview: Graves Disease, Treated with Radioactive Iodine. Still seeing opthalmology for eyes. Follows with Endo Last Assessment & Plan: Stable on medications. HYPERREFLEXIA 03/17/2008 05/21/2010 Sialoadenitis 11/02/2007 08/14/2021 Last Assessment & Plan: History of stones, right parotid. Passed stone once. Never needed hospitalized, has not seen ENT. Present last 3-4 years. Essential and other specified forms of tremor 05/21/2010 Chronic rhinitis 02/25/2007 08/14/2021 Sacroiliitis, not elsewhere classified 7 08/14/2021 HYPERGLYCEMIA 06/04/2005 05/21/2010 Calculus of kidney 06/04/2005 12/30/2011 Last Assessment & Plan: History of 2 stones, nothing recently. Plantar fasciitis, bilateral 07/2021 Overview: left worse than right documented as of this encounter (statuses as of 07/11/2022) [facility] of [facility] illness Narrative* Problem Noted Date Resolved Date Ventral hernia without obstruction or gangrene 0 03/05/2018 08/14/2021 Acute appendicitis 08/08/2016 08/14/2021 Iron deficiency 08/30/2010 01/15/2011 HYPERTHYROID 04/11/2008 01/28/2011 Overview: Graves Disease, Treated with Radioactive Iodine. Still seeing opthalmology for eyes. Follows with Endo Last Assessment & Plan: Stable on medications. HYPERREFLEXIA 03/17/2008 05/21/2010 Sialoadenitis 11/02/2007 08/14/2021 Last Assessment & Plan: History of stones, right parotid. Passed stone once. Never needed hospitalized, has not seen ENT. Present last 3-4 years. Essential and other specified forms of tremor 05/21/2010 Chronic rhinitis 02/25/2007 08/14/2021 Sacroiliitis, not elsewhere classified 7 08/14/2021 HYPERGLYCEMIA 06/04/2005 05/21/2010 Calculus of kidney 06/04/2005 12/30/2011 Last Assessment & Plan: History of 2 stones, nothing recently. Plantar fasciitis, bilateral 07/2021 Overview: left worse than right documented as of this encounter (statuses as of 07/13/2022) [facility] of [facility] illness Narrative* Problem Noted Date Resolved Date Ventral hernia without obstruction or gangrene 0 03/05/2018 08/14/2021 Acute appendicitis 08/08/2016 08/14/2021 Iron deficiency 08/30/2010 01/15/2011 HYPERTHYROID 04/11/2008 01/28/2011 Overview: Graves Disease, Treated with Radioactive Iodine. Still seeing opthalmology for eyes. Follows with Endo Last Assessment & Plan: Stable on medications. HYPERREFLEXIA 03/17/2008 05/21/2010 Sialoadenitis 11/02/2007 08/14/2021 Last Assessment & Plan: History of stones, right parotid. Passed stone once. Never needed hospitalized, has not seen ENT. Present last 3-4 years. Essential and other specified forms of tremor 05/21/2010 Chronic rhinitis 02/25/2007 08/14/2021 Sacroiliitis, not elsewhere classified 7 08/14/2021 HYPERGLYCEMIA 06/04/2005 05/21/2010 Calculus of kidney 06/04/2005 12/30/2011 Last Assessment & Plan: History of 2 stones, nothing recently. Plantar fasciitis, bilateral 07/2021 Overview: left worse than right documented as of this encounter (statuses as of 08/13/2022) [facility] of [facility] illness Narrative* Problem Noted Date Diagnosed Date Resolved Date Ventral hernia without obstr uction or gangrene 03/05/2018 08/14/2021 Acute appendicitis 08/08/2016 2 Iron deficiency 08/30/2010 01/15/2011 HYPERTHYROID 04/11/2008 01/28/2011 Overview: Graves Disease, Treated with Radioactive Iodine. Still seeing opthalmology for eyes. Follows with Endo Last Assessment & Plan: Stable on medications. HYPERREFLEXIA 03/17/2008 05/21/2010 Sialoadenitis 11/02/2007 08/14/2021 Last Assessment & Plan: History of stones, right parotid. Passed stone once. Never needed hospitalized, has not seen ENT. Present last 3-4 years. Essential and other specified forms of tremor 11/02/19 08 05/21/2010 Chronic rhinitis 02/25/2007 08/14/2021 Sacroiliitis, not elsewhere classified 11/13/2006 08/14/2021 HYPERGLYCEMIA 06/04/2005 05/21/2010 Calculus of kidney 06/04/2005 2 Last Assessment & Plan: History of 2 stones, nothing recently. Plantar fasciitis, bilateral 08/14/2021 Overview: left worse than right documented as of this encounter (statuses as of 10/12/2022) [facility] of [facility] illness Narrative* Problem Noted Date Diagnosed Date Resolved Date Ventral hernia without obstr uction or gangrene 03/05/2018 08/14/2021 Acute appendicitis 08/08/2016 2 Iron deficiency 08/30/2010 01/15/2011 HYPERTHYROID 04/11/2008 01/28/2011 Overview: Graves Disease, Treated with Radioactive Iodine. Still seeing opthalmology for eyes. Follows with Endo Last Assessment & Plan: Stable on medications. HYPERREFLEXIA 03/17/2008 05/21/2010 Sialoadenitis 11/02/2007 08/14/2021 Last Assessment & Plan: History of stones, right parotid. Passed stone once. Never needed hospitalized, has not seen ENT. Present last 3-4 years. Essential and other specified forms of tremor 11/02/19 08 05/21/2010 Chronic rhinitis 02/25/2007 08/14/2021 Sacroiliitis, not elsewhere classified 11/13/2006 08/14/2021 HYPERGLYCEMIA 06/04/2005 05/21/2010 Calculus of kidney 06/04/2005 2 Last Assessment & Plan: History of 2 stones, nothing recently. Plantar fasciitis, bilateral 08/14/2021 Overview: left worse than right documented as of this encounter (statuses as of 12/14/2022) [facility] of [facility] illness Narrative* Problem Noted Date Diagnosed Date Resolved Date Ventral hernia without obstr uction or gangrene 03/05/2018 08/14/2021 Acute appendicitis 08/08/2016 2 Iron deficiency 08/30/2010 01/15/2011 HYPERTHYROID 04/11/2008 01/28/2011 Overview: Graves Disease, Treated with Radioactive Iodine. Still seeing opthalmology for eyes. Follows with Endo Last Assessment & Plan: Stable on medications. HYPERREFLEXIA 03/17/2008 05/21/2010 Sialoadenitis 11/02/2007 08/14/2021 Last Assessment & Plan: History of stones, right parotid. Passed stone once. Never needed hospitalized, has not seen ENT. Present last 3-4 years. Essential and other specified forms of tremor 11/02/19 08 05/21/2010 Chronic rhinitis 02/25/2007 08/14/2021 Sacroiliitis, not elsewhere classified 11/13/2006 08/14/2021 HYPERGLYCEMIA 06/04/2005 05/21/2010 Calculus of kidney 06/04/2005 2 Last Assessment & Plan: History of 2 stones, nothing recently. Plantar fasciitis, bilateral 08/14/2021 Overview: left worse than right documented as of this encounter (statuses as of 04/13/2023) [facility] of [facility] illness Narrative* Problem Noted Date Resolved Date Iron deficiency 08/30/2010 01/15/2011 HYPERTHYROID 04/11/2008 01/28/2011 Overview: Graves Disease, Treated with Radioactive Iodine. Still seeing opthalmology for eyes. Follows with Endo Last Assessment & Plan: Stable on medications. HYPERREFLEXIA 03/17/2008 05/21/2010 Essential and other specified forms of tremor 05/21/2010 HYPERGLYCEMIA 06/04/2005 05/21/2010 Calculus of kidney 06/04/2005 12/30/2011 Last Assessment & Plan: History of 2 stones, nothing recently. documented as of this encounter (statuses as of 05/01/2021) [facility] of Past illness Narrative* Problem Noted Date Resolved Date Iron deficiency 08/30/2010 01/15/2011 HYPERTHYROID 04/11/2008 01/28/2011 Overview: Graves Disease, Treated with Radioactive Iodine. Still seeing opthalmology for eyes. Follows with Endo Last Assessment & Plan: Stable on medications. HYPERREFLEXIA 03/17/2008 05/21/2010 Essential and other specified forms of tremor 05/21/2010 HYPERGLYCEMIA 06/04/2005 05/21/2010 Calculus of kidney 06/04/2005 12/30/2011 Last Assessment & Plan: History of 2 stones, nothing recently. documented as of this encounter (statuses as of 06/25/2021) [facility]* Diagnosis Hand injuries, right, initial encounter- Primary [facility] encounter [facility]* Diagnosis Onset Date Resolution Status Hyperlipidemia acute Osteopenia determined by x-ray acute Postablative hypothyroidism chronic Vitamin D deficiency [facility] Work Phone: Evaluation note* Diagnosis Encounter for gynecological examination (general) (routine) without abnormal findings- Primary Encounter for screening for human papillomavirus (HPV) Special screening examination for human papillomavirus (HPV) Pap smear for cervical cancer screening Screening for malignant neoplasm of the cervix Encounter for screening mammogram for breast cancer [facility] encounter [facility]* Diagnosis Mixed hyperlipidemia- Primary Postablative hypothyroidism Other postablative hypothyroidism Anxiety disorder, unspecified type Colon cancer screening Special screening for malignant neoplasms, colon Chronic idiopathic thrombocytopenia (HCC) Immune thrombocytopenic purpura * Assessment & Plan Note - Cayla Olson APRN.CNP - 08/14/2021 5:18 PM EDT Associated Problem(s): Chronic idiopathic thrombocytopenia (HCC) Denies unusual bleeding or bruising * Assessment & Plan Note - Cayla Olson APRN.CNP - 08/14/2021 5:17 PM EDT Associated Problem(s): Anxiety disorder Taking Celexa daily. Helps control anxiety and irritability. No side effects * Assessment & Plan Note - Cayla Olson APRN.CNP - 08/14/2021 5:15 PM EDT Associated Problem(s): Hypothyroidism Managed by endocrinology Dr. Mario Beck. Levothyroxine dose recently changed from 7 to 6 days a week. * Assessment & Plan Note - Cayla Olson APRN.CNP - 08/14/2021 5:15 PM EDT Associated Problem(s): Hyperlipidemia Taking statin as prescribed. Denies side effects. Exercise: denies regular aerobic exercise but is very active. Diet: Watches diet for salt (salty snacks, added salt, processed frozen/canned foods), sugary/sweetsnacks, unhealthy fats: most of the time [facility]* Diagnosis Diarrhea, unspecified type- Primary [facility]* Diagnosis Giardial enteritis- Primary Giardiasis Hypokalemia Hypopotassemia Anxiety Anxiety state, unspecified Gastroesophageal reflux disease, unspecified whether esophagitis present [facility]* Diagnosis Dysuria- Primary [facility]* Diagnosis Encounter for screening mammogram for breast cancer [facility]* Diagnosis Encounter for screening mammogram for breast cancer documented [facility] this [facility] noteNo assessment information availableWSumma [facility] Work Phone: Evaluation note* Diagnosis Anxiety Anxiety state, unspecified [facility]* Diagnosis HYPERLIPIDEMIA NEC/NOS- Primary Other and unspecified hyperlipidemia HYPERTHYROID Thyrotoxicosis without mention of goiter or other cause, without mention of thyrotoxic crisis or storm Calculus of kidney Sialoadenitis Mixed hyperlipidemia- Primary Postablative hypothyroidism Other postablative hypothyroidism Anxiety disorder, unspecified type Colon cancer screening Special screening for malignant neoplasms, colon Chronic idiopathic thrombocytopenia (HCC) Immune thrombocytopenic purpura Encounter for gynecological examination (general) (routine) without abnormal findings- Primary Encounter for screening mammogram for breast cancer Anxiety Anxiety state, unspecified [facility] Diagnosis HYPERLIPIDEMIA NEC/NOS- Primary Other and unspecified hyperlipidemia HYPERTHYROID Thyrotoxicosis without mention of goiter or other cause, without mention of thyrotoxic crisis or storm Calculus of kidney Sialoadenitis Mixed hyperlipidemia- Primary Postablative hypothyroidism Other postablative hypothyroidism Anxiety disorder, unspecified type Colon cancer screening Special screening for malignant neoplasms, colon Chronic idiopathic thrombocytopenia (HCC) Immune thrombocytopenic purpura Encounter for screening mammogram for breast cancer documented in this encounter [facility] Discharge instructions Additional Instructions Thank you for trusting us with your care today! Please take Tylenol (2 pills, 650 mg), ibuprofen (2 pills, 400 mg) every 6 hours as needed for pain and fever control. Please eat a potassium rich diet which includes foods such as spinach, dark green leafy vegetables, cantaloupe and bananas. Please refer to your online medical record for results of stool studies if provided. He may also call into the emergency department and/or follow-up your primary care physician for this information as well. Please return if you develop vomiting cannot tolerate medicine by mouth or if you develop severe abdominal pain, worsening fever or worsening diarrhea Please return to the emergency department if your symptoms change or worsen. Please follow with your primary care physician for further outpatient evaluation and management.[facility] Work Phone: Hospital Discharge instructions Additional Instructions Please begin taking your Synthroid based on the abnormal value found on today's lab. Your work-up and imaging show no signs of acute cardiac event or lung disorder. Follow-up with your family doctor for repeat evaluation and return to the ER should you have any further concernsWSumma [facility] Work Phone: Reason for referral (narrative)* Diagnostic Procedure Only (Urgent) - Closed Specialty Diagnoses / Procedures Referred By Ronit t Referred To Contact XR IMAGING Diagnoses Hand injuries, right, initial encounter Procedures XR HAND GENERAL 3V PA/LAT/OBL RIGHT RADEX HAND MINIMUM 3 VIEWS Mikael Beck APRN.WILDLIFE BIOSTATION RESEARCH ECOLOGIST [address] [place] [address] Xr Imaging Referral ID Status Reason Start Date Expiration Date V isits Requested Visits Authorized [id number] Closed Auto-Generate d Referral 05/01/2021 05/31/2022 1 1 [facility] for referral (narrative)* Diagnostic Procedure Only (Routine) - Pending Review Specialty Diagnoses / Procedures Referred By Contac t Referred To Contact BR IMAGING Diagnoses Encounter for screening mammogram for breast cancer Procedures SYDNEE SCREENING W FRENCH SCREENING DIGITAL BREAST TOMOSYNTHESIS BI SCREENING MAMMOGRAPHY BI 2-VIEW BREAST INC CAD [place] LaurelRICK zhang.WILDLIFE BIOSTATION RESEARCH ECOLOGIST [address] [place] [address] [facility] [address] [place] [address] Referral ID Status Reason Start Date Expiration Date Visits Requested Visits Authorized [id number] Pending Review Auto-Generat ed Referral 06/25/2021 07/25/2022 1 1 [facility] for referral (narrative)* Diagnostic Procedure Only (Routine) - Closed Specialty Diagnoses / Procedures Referred By Contac t Referred To Contact BR IMAGING Diagnoses Encounter for screening mammogram for breast cancer Procedures SYDNEE SCREENING W FRENCH SCREENING DIGITAL BREAST TOMOSYNTHESIS BI SCREENING MAMMOGRAPHY BI 2-VIEW BREAST INC CAD KrisLaurel CIGAR PACKER AND GRADER.WILDLIFE BIOSTATION RESEARCH ECOLOGIST [address] [place] [address] [facility] [address] [place] [address] Referral ID Status Reason Start Date Expiration Date V isits Requested Visits Authorized [id number] Closed Auto-Generate d Referral 06/25/2021 07/25/2022 1 1 [facility] for referral (narrative)* Diagnostic Procedure Only (Routine) - Pending Review Specialty Diagnoses / Procedures Referred By Ronit rush Referred To Contact BR IMAGING Diagnoses Encounter for screening mammogram for breast cancer Procedures SYDNEE SCREENING W FRENCH SCREENING DIGITAL BREAST TOMOSYNTHESIS BI SCREENING MAMMOGRAPHY BI 2-VIEW BREAST INC Nury Gregory MD [address] [place] [address] [facility] [address] [place] [id number] Referral ID Status Reason Start Date Expiration Date Visits Requested Visits Authorized [id number] Pending Review Auto-Generat ed Referral 04/08/2023 05/07/2024 1 1 [facility] for referral (narrative)* Diagnostic Procedure Only (Routine) - Authorized Specialty Diagnoses / Procedures Referred By Ronit rush Referred To Contact [facility] Diagnoses Encounter for gynecological examination (general) (routine) without abnormal findings Encounter for screening mammogram for breast cancer Procedures SYDNEE SCREENING W FRENCH SCREENING DIGITAL BREAST TOMOSYNTHESIS BI SCREENING MAMMOGRAPHY BI 2-VIEW BREAST INC CAD Laurel Ponce APRN.WILDLIFE BIOSTATION RESEARCH ECOLOGIST [address] [place] [address] [facility] [address] [place] [phone] Referral ID Status Reason Start Date Expiration Date Visits Requested Visits Authorized [id number] Authorized Auto-Generat ed Referral 12/17/2023 01/15/2025 1 1 [facility] for referral (narrative)No reason for referral [facility]: Reason for visit Narrative* Diagnostic Procedure Only (Routine) - Closed Specialty Diagnoses / Procedures Referred By Ronit rush Referred To Contact [facility] Diagnoses Encounter for screening mammogram for breast cancer Procedures SYDNEE SCREENING W FRENCH SCREENING DIGITAL BREAST TOMOSYNTHESIS BI SCREENING MAMMOGRAPHY BI 2-VIEW BREAST INC CAD Laurel Ponce APRN.WILDLIFE BIOSTATION RESEARCH ECOLOGIST [address] [place] [address] [facility] [address] [place] [address] Referral ID Status Reason Start Date Expiration Date V isits Requested Visits Authorized [id number] Closed Auto-Generate d Referral 06/25/2021 07/25/2022 1 1 [facility] for visit Narrative* Diagnostic Procedure Only (Urgent) - Closed Specialty Diagnoses / Procedures Referred By Contac t Referred To Contact [facility] IMAGING Diagnoses Hand injuries, right, initial encounter Procedures XR HAND GENERAL 3V PA/LAT/OBL RIGHT RADEX HAND MINIMUM 3 VIEWS Mikael Beck APRN.WILDLIFE BIOSTATION RESEARCH ECOLOGIST [address] [place] [address] [place] [id number] Referral ID Status Reason Start Date Expiration Date V isits Requested Visits Authorized [id number] Closed Auto-Generate d Referral 05/01/2021 05/31/2022 1 1 [facility] for visit Narrative* Diagnostic Procedure Only (Routine) - Closed Specialty Diagnoses / Procedures Referred By Contac t Referred To Contact [facility] Diagnoses Encounter for screening mammogram for breast cancer Procedures SYDNEE SCREENING W FRENCH SCREENING DIGITAL BREAST TOMOSYNTHESIS BI SCREENING MAMMOGRAPHY BI 2-VIEW BREAST INC CAD Nury Zapata MD [address] [place] [address] [facility] [address] [place] [address] Referral ID Status Reason Start Date Expiration Date V isits Requested Visits Authorized [id number] Closed Auto-Generate d Referral 04/08/2023 05/07/2024 1 1 [facility] Summary Purpose Family History No Family History Records Found Relationship Condition Age at Onset Recorded Date/T derrick father Cardiac disease Unknown mother Hemorrhagic disorder Unknown sister Kidney disorder Unknown Advance Directives No Advanced Directives Records Found Advance Directive Response Recorded Date/ Time Living Will No January 29, 018 3:40pm Power of Textile Clothing And Footwear Mechanic No January 29, 2018 3:40pm Advance Directive Response Recorded Date/ Time Living Will No July 11, 2022 1 0:42am Power of Textile Clothing And Footwear Mechanic No July 11, 2022 10:42am Advance Directive Response Recorded Date/ Time Living Will No July 13, 2022 4 :07am Power of Textile Clothing And Footwear Mechanic No July 13, 2022 4:07am Advance Directive Response Recorded Date/ Time Living Will No July 13, 2022 4 :07am Do you have a Healthcare Power of Textile Clothing And Footwear Mechanic? No July 13, 2022 4:07am Chief Complaint and Reason for Visit Chief Complaint 1 Y FU Reason for Visit Hyperlipidemia Osteopenia determined by x-ray Postablative hypothyroidism Vitamin D deficiency Chief Complaint E ORDERS 1 Y FU Reason for Visit Hyperlipidemia Osteopenia determined by x-ray Postablative hypothyroidism Vitamin D deficiency Chief Complaint E ORDERS 1 Y FU DIARRHEA Reason for Visit Hyperlipidemia Osteopenia determined by x-ray Postablative hypothyroidism Vitamin D deficiency Chief Complaint E ORDERS 1 Y FU DIARRHEA chest pain Reason for Visit Hyperlipidemia Osteopenia determined by x-ray Postablative hypothyroidism Vitamin D deficiency Chief Complaint E ORDERS Chief Complaint Admit Date E ORDERS May 13, 2024 7:14 am 1 Y FU May 17, 2024 3:55 pm Reason for Visit Admit Date Hyperlipidemia May 17, 2024 3:55 pm Postablative hypothyroidism May 17, 025 3:55pm Additional Source Comments INFORMATION SOURCE (unrecogn ized section and content) DATE CREATED AUTHOR 08/04/2017 [facility] DATE CREATED AUTHOR AUTHOR'S ORGANIZ ATION 12/19/2023 [facility] DATE CREATED AUTHOR AUTHOR'S ORGANIZ ATION 05/19/2024 [facility] Source Comments (unrecognize d section and content) In the event this informatio n is protected by the Federal Confidentiality of Alcohol and Drug Abuse Patient Records regulations: The Federal rules restrict any use of the information to criminally investigate or prosecute any alcohol or drug abuse patient.[facility] the event this information is protected by the Federal Confidentiality of Alcohol and Drug Abuse Patient Records regulations: The Federal rules restrict any use of the information to criminally investigate or prosecute any alcohol or drug abuse patient.[facility] the event this information is protected by the Federal Confidentiality of Alcohol and Drug Abuse Patient Records regulations: The Federal rules restrict any use of the information to criminally investigate or prosecute any alcohol or drug abuse patient.[facility] the event this information is protected by the Federal Confidentiality of Alcohol and Drug Abuse Patient Records regulations: The Federal rules restrict any use of the information to criminally investigate or prosecute any alcohol or drug abuse patient.[facility] Hospital[facility] the event this information is protected by the Federal Confidentiality of Alcohol and Drug Abuse Patient Records regulations: The Federal rules restrict any use of the information to criminally investigate or prosecute any alcohol or drug abuse patient.[facility] the event this information is protected by the Federal Confidentiality of Alcohol and Drug Abuse Patient Records regulations: The Federal rules restrict any use of the information to criminally investigate or prosecute any alcohol or drug abuse patient.[facility] the event this information is protected by the Federal Confidentiality of Alcohol and Drug Abuse Patient Records regulations: The Federal rules restrict any use of the information to criminally investigate or prosecute any alcohol or drug abuse patient.[facility] Hospital[facility] the event this information is protected by the Federal Confidentiality of Alcohol and Drug Abuse Patient Records regulations: The Federal rules restrict any use of the information to criminally investigate or prosecute any alcohol or drug abuse patient.[facility] Hospital[facility] the event this information is protected by the Federal Confidentiality of Alcohol and Drug Abuse Patient Records regulations: The Federal rules restrict any use of the information to criminally investigate or prosecute any alcohol or drug abuse patient.[facility] Hospital[facility] the event this information is protected by the Federal Confidentiality of Alcohol and Drug Abuse Patient Records regulations: The Federal rules restrict any use of the information to criminally investigate or prosecute any alcohol or drug abuse patient.[facility] Hospital[facility] the event this information is protected by the Federal Confidentiality of Alcohol and Drug Abuse Patient Records regulations: The Federal rules restrict any use of the information to criminally investigate or prosecute any alcohol or drug abuse patient.[facility] HospitalIn the event this information is protected by the Federal Confidentiality of Alcohol and Drug Abuse Patient Records regulations: The Federal rules restrict any use of the information to criminally investigate or prosecute any alcohol or drug abuse patient.[facility] Hospital[facility] the event this information is protected by the Federal Confidentiality of Alcohol and Drug Abuse Patient Records regulations: The Federal rules restrict any use of the information to criminally investigate or prosecute any alcohol or drug abuse patient.[facility] Hospital[facility] the event this information is protected by the Federal Confidentiality of Alcohol and Drug Abuse Patient Records regulations: The Federal rules restrict any use of the information to criminally investigate or prosecute any alcohol or drug abuse patient.[facility] Hospital[facility] the event this information is protected by the Federal Confidentiality of Alcohol and Drug Abuse Patient Records regulations: The Federal rules restrict any use of the information to criminally investigate or prosecute any alcohol or drug abuse patient.[facility] Reason for Visit (unrecogniz ed section and content) Reason Comments Hand Injury right hand pain and swelling x 2-3 weeks, smashed Reason Comments Yearly Exam Reason Comments Medication Follow-up Reason Comments Diarrhea 4 episodes of vomiti ng last week, now having diarrhea, fatigue x1 week Reason Comments Results Reason Comments ED Follow-up [facility] ER follow up 07/11 Low potassium Reason Comments Urinary Problem Discomfort and burni ng x 2 days Reason Comments Refill Request Reason Comments [facility] Teams (unrecognized sec tion and content) Beater Machine Operator Relationship Specialty Start Date End Date Nury Zapata MD [address] [place], [place] [id number] PCP - General Internal Medicine 09/23/10 Beater Machine Operator Relationship Specialty Start Date End Date Nury Zapata MD [address] [place], [place] [id number] PCP - General Internal Medicine 09/23/10 Beater Machine Operator Relationship Specialty Start Date End Date Nury Zapata MD [address] [facility] [place] [address] PCP - General Internal Medicine 09/23/10 Beater Machine Operator Relationship Specialty Start Date End Date Nury Zapata MD [address] [facility] [place] [address] PCP - General Internal Medicine 09/23/10 Team Status: Active Member Role Status Dates No Primary Care Physician Family Provider Active Dr. Nruy Zapata MD Primary Care Provider Active Team Status: Inactive Member Role Status Dates Dr. Nury Zapata MD Primary Care Provider, Referr ing Provider Active Dr. Mario Beck MD Attending Provider Active Team Status: Inactive Member Role Status Dates Dr. Nury Zapata MD Primary Care Provider Active Dr. Mario Beck MD Attending Provider, Referring Provi ion Active Beater Machine Operator Relationship Specialty Start Date End Date Nury Zapata MD [address] [place] [address] PCP - General Internal Medicine 09/23/10 Team Status: Inactive Member Role Status Dates Dr. Nury Zapata MD Primary Care Provider Active Dr. Tian Soto , Emergency Provider Active Beater Machine Operator Relationship Specialty Start Date End Date Nury Zapata MD [address] [facility] [place] [address] PCP - General Internal Medicine 09/23/10 Team Status: Inactive Member Role Status Dates Dr. Nury Zapata MD Primary Care Provider Active Dr. Nima Sheehan , Emergency Provider Active Beater Machine Operator Relationship Specialty Start Date End Date Nury Zapata MD [address] [facility] [place] [address] PCP - General Internal Medicine 09/23/10 Beater Machine Operator Relationship Specialty Start Date End Date Nury Zapata MD [address] [facility] [place] [address] PCP - General Internal Medicine 09/23/10 Beater Machine Operator Relationship Specialty Start Date End Date Nury Zapata MD [address] [place] [address] PCP - General Internal Medicine 09/23/10 Beater Machine Operator Relationship Specialty Start Date End Date Nury Zapata MD [address] [place] [address] PCP - General Internal Medicine 09/23/10 Beater Machine Operator Relationship Specialty Start Date End Date Nury Zapata MD [address] [place] [address] PCP - General Internal Medicine 09/23/10 Team Status: Inactive Member Role Status Dates Dr. Nury Zapata MD Primary Care Provider Active Caitlin Jamison ARBOREAL SCIENTIST-C Attending Provider, Referring Pr ovider Active Beater Machine Operator Relationship Specialty Start Date End Date Nury Zapata MD [address] [place] [address] PCP - General Internal Medicine 09/23/10 Beater Machine Operator Relationship Specialty Start Date End Date Nury Zapata MD [address] [place] [address] PCP - General Internal Medicine 09/23/10 Beater Machine Operator Relationship Specialty Start Date End Date Nury Zapata MD [address] [place] [address] PCP - General Internal Medicine 09/23/10 Beater Machine Operator Relationship Specialty Start Date End Date Nury Zapata MD [address] [place] [address] PCP - General Internal Medicine 09/23/10 Team Status: Active Member Role Status Dates Dr. Nury Zapata MD Primary Care Provider Active Team Status: Inactive Member Role Status Dates Dr. Nury Zapata MD Primary Care Provider Active Start: May 13, 2024 End: May 13, 2024 Dr. Mario Beck MD Attending Provider Active Sta rt: May 13, 2024 End: May 13, 2024 Dr. Mario Beck MD Referring Provider Active Sta rt: May 13, 2024 End: May 13, 2024 Team Status: Inactive Member Role Status Dates Dr. Nury Zapata MD Primary Care Provider Active Start: May 17, 2024 End: May 17, 2024 Dr. Nury Zapata MD Referring Provider Active Start: May 17, 2024 End: May 17, 2024 Dr. Mario Beck MD Attending Provider Active Sta rt: May 17, 2024 End: May 17, 2024 Goals (unrecognized section and content) Goals may be documented in a n alternate sectionGoals may be documented in an alternate sectionGoals may be documented in an alternate sectionGoals may be documented in an alternate sectionGoals may be documented in an alternate sectionGoals may be documented in an alternate section FOR RECORDS PERTAINING TO PATIENTS WHO ARE OR HAVE BEEN ENROLLED IN A CHEMICAL DEPENDENCY/SUBSTANCEABUSE PROGRAM, SOME INFORMATION MAY BE OMITTED. This clinical summary was aggregated from multiple sources. Caution should be exercised in using it in the provision of clinical care. This summary normalizes information from multiple sources, and as a consequence, information in this document may materially change the coding, format and clinical context of patient data. In addition, data may be omitted in some cases. CLINICAL DECISIONS SHOULD BE BASED ON THE PRIMARY CLINICAL RECORDS. [employer] [facility]. provides no warranty or guarantee of the accuracy or completeness of information in this document.
[2024-10-16 14:36] VITALS: BP 112/74; PULSE 76; RESP 18; TEMP 36.8; O2SAT 99
== END 2024-10-16 14:37 | disposition home or self-care (01) ==
PROVIDERS: Emergency Provider Emergency Medicine; PCP Internal Medicine; Visit Provider Emergency Medicine
DX: S56.911A Strain of unspecified muscles, fascia and tendons at forearm level, right arm, initial encounter (principal); W22.8XXA Striking against or struck by other objects, initial encounter; Y92.71 Barn as the place of occurrence of the external cause; E78.5 Hyperlipidemia, unspecified; E03.9 Hypothyroidism, unspecified; F32.A Depression, unspecified; Z79.890 Hormone replacement therapy; Z79.899 Other long term (current) drug therapy
CPT/HCPCS: 73090; 99282